=== PATIENT | female | born 1940 | race Caucasian/White ===

== ENCOUNTER → 2018-02-19 | Outpatient (CLI) | payer MEDICARE ==
--- NOTE | 2018-02-20 14:59 | ECHOF ---
Referral Reason:AVNORMAL EKG R94.31 MEASUREMENTS -------- HEIGHT: 165.1 cm WEIGHT: 51.3 kg BP: 190/109 RVIDd: 2.4 cm (< 3.3) IVSd: 1.2 cm (0.6 - 1.1) LVIDd: 3.6 cm (3.9 - 5.3) LVPWd: 1.0 cm (0.6 - 1.1) IVSs: 1.4 cm LVIDs: 2.4 cm LVPWs: 1.4 cm LAESV Index (A-L): 20.20 ml/m Ao Diam: 3.1 cm (2.0 - 3.7) AV Cusp: 1.9 cm (1.5 - 2.6) LA Diam: 2.7 cm (2.7 - 3.8) MV E Wei: 0.46 m/s MV DecT: 114 ms MV A Wei: 0.97 m/s MV E/A Ratio: 0.47 AR PHT: 332 ms RAP: 5.00 mmHg RVSP: 25.35 mmHg FINDINGS -------- Sinus rhythm. This was a technically adequate study. The left ventricular size is normal. There is mild concentric left ventricular hypertrophy. Overa ll left ventricular systolic function is normal with, an EF between 55 - 60 %. The right ventricle is normal in size and function. Normal LA size by volume 22+/-6 ml/m2. The right atrium is normal in size. Aortic valve is trileaflet and is mildly thickened. There is moderate aortic regurgitation. There is no evidence of aortic stenosis. The mitral valve leaflets are mildly thickened. Mild mitral regurgitation is present. Mild tricuspid regurgitation present. Right ventricular systolic pressure is normal at < 35 mmHg. There is no evidence of pulmonary hypertension. The pulmonic valve was not well visualized. The aortic root is borerline dilated up to 3.6 cm. Normal inferior vena cava with normal inspiratory collapse consistent with estimated right atrial pre ssure of 5 mmHg. There is no pericardial effusion. CONCLUSIONS -------- 1. Sinus rhythm. 2. This was a technically adequate study. 3. The left ventricular size is normal. 4. There is mild concentric left ventricular hypertrophy. 5. Overall left ventricular systolic function is normal with, an EF between 55 - 60 %. 6. Normal LA size by volume 22+/-6 ml/m2. 7. Aortic valve is trileaflet and is mildly thickened. 8. There is moderate aortic regurgitation. 9. The mitral valve leaflets are mildly thickened. 10. Mild mitral regurgitation is present. 11. Mild tricuspid regurgitation present. 12. Right ventricular systolic pressure is normal at < 35 mmHg. 13. There is no evidence of pulmonary hypertension. 14. The pulmonic valve was not well visualized. 15. The aortic root is borerline dilated up to 3.6 cm. 16. There is no pericardial effusion. TELEGRAPH INSPECTOR: Valentin Toure RDCS
== END | disposition home or self-care (01) ==
LOC: RADECHMAIN 16:24
PROVIDERS: ATTEND Family Medicine
DX: I08.3 Combined rheumatic disorders of mitral, aortic and tricuspid valves (principal)
CPT/HCPCS: 93306

== ENCOUNTER 2018-05-15 04:41 | Inpatient (IN) | payer MEDICARE ==
[2018-05-15] MEDS ORDERED: METOCLOPRAMIDE 5 MG/ML 2 ML VIAL IVP STA (05:06)
[2018-05-15] MEDS ORDERED: HYDROmorphone 0.5 MG/0.5 ML SYRINGE IVP STA (05:06)
[2018-05-15] MEDS ORDERED: SODIUM CHLORIDE 0.9% 500 ML IV STA (05:06)
[2018-05-15] MEDS ORDERED: FAMOTIDINE 20 MG/2 ML VIAL IV STA (05:07)
--- NOTE | 2018-05-15 05:09 | ED ---
General Adult HPI - General Chief complaint: Abdominal Pain Stated complaint: abd pain Time Seen by Provider: 05/15/18 05:02 Source: patient, RN notes reviewed Mode of arrival: ambulatory Limitations: no limitations - History of Present Illness Initial comments: Patient is a pleasant 77-year-old female presenting to the emergency Department with complaints of abdominal discomfort. Symptoms started a week or more ago. Symptoms have progressively worsened since that time. Abdomen feels full. Discomfort is mostly the lower abdomen. Patient may have some mild constipation the past few days. Patient has some associated nausea and just vomited. No fevers. No history of chronic similar symptoms. - Related Data Previous Rx's Medication Instructions Recorded Carbamide Peroxide [Debrox Otic 5 drops BOTH EARS ONCE PRN #1 03/02/14 drop] bottle Allergies Allergy/AdvReac Type Severity Reaction Status Date / Time No Known Allergies Allergy Verified 05/15/18 04:52 Review of Systems ROS Statement: Those systems with pertinent positive or pertinent negative responses have been documented in the HPI. ROS Other: All systems not noted in ROS Statement are negative. Constitutional: Denies: fever Eyes: Denies: eye pain ENT: Denies: ear pain Respiratory: Denies: cough Cardiovascular: Denies: chest pain Endocrine: Denies: fatigue Gastrointestinal: Reports: abdominal pain, nausea, vomiting, constipation Genitourinary: Denies: dysuria Musculoskeletal: Denies: back pain Skin: Denies: rash Neurological: Denies: weakness Past Medical History Past Medical History: Cancer, Hypertension History of Any Multi-Drug Resistant Organisms: None Reported Past Surgical History: Joint Replacement, Orthopedic Surgery Past Psychological History: No Psychological Hx Reported Smoking Status: Never smoker Past Alcohol Use History: Daily Past Drug Use History: None Reported General Exam Limitations: no limitations General appearance: alert, in no apparent distress Head exam: Present: atraumatic Eye exam: Present: normal appearance, PERRL ENT exam: Present: normal oropharynx Neck exam: Present: normal inspection Respiratory exam: Present: normal lung sounds bilaterally Cardiovascular Exam: Present: regular rate, normal rhythm Expanded Peripheral pulses: 2+: Dorsalis Pedis (R), Dorsalis Pedis (L) GI/Abdominal exam: Present: soft, tenderness (Mild diffuse tenderness. Lower abdomen with mild to moderate tenderness.), normal bowel sounds. Absent: distended, guarding, rebound, rigid, pulsatile mass Extremities exam: Present: normal inspection. Absent: pedal edema, calf tenderness Neurological exam: Present: alert Psychiatric exam: Present: normal affect, normal mood Skin exam: Present: normal color Course Vital Signs 05/15/18 05/15/18 04:48 06:04 Temperature 97.4 F L 98.3 F Pulse Rate 138 H 90 Respiratory 18 18 Rate Blood Pressure 145/95 187/97 O2 Sat by Pulse 97 98 Oximetry Medical Decision Making - Medical Decision Making Patient reevaluated and resting comfortably in bed. Patient and family updated on results and plan. Case was discussed in detail with Dr. Greer, who will admit his patient. Consult with Dr. Hood. - Lab Data Result diagrams: 05/15/18 05:15 05/15/18 05:15 Lab Results 05/15/18 05/15/18 05/15/18 Range/Units 05:15 05:15 05:15 WBC 6.2 (3.8-10.6) k/uL RBC 5.54 H (3.80-5.40) m/uL Hgb 15.4 (11.4-16.0) gm/dL Hct 48.3 H (34.0-46.0) % MCV 87.1 (80.0-100.0) fL MCH 27.8 (25.0-35.0) pg MCHC 31.9 (31.0-37.0) g/dL RDW 12.7 (11.5-15.5) % Plt Count 305 (150-450) k/uL Neutrophils % 78 % Lymphocytes % 16 % Monocytes % 4 % Eosinophils % 1 % Basophils % 1 % Neutrophils # 4.8 (1.3-7.7) k/uL Lymphocytes # 1.0 (1.0-4.8) k/uL Monocytes # 0.2 (0-1.0) k/uL Eosinophils # 0.0 (0-0.7) k/uL Basophils # 0.0 (0-0.2) k/uL PT 10.1 (9.0-12.0) sec INR 1.0 (<1.2) APTT 21.9 L (22.0-30.0) sec Sodium 140 (137-145) mmol/L Potassium 4.1 (3.5-5.1) mmol/L Chloride 109 H (98-107) mmol/L Carbon Dioxide 22 (22-30) mmol/L Anion Gap 9 mmol/L BUN 23 H (7-17) mg/dL Creatinine 0.69 (0.52-1.04) mg/dL Est GFR (CKD-EPI)AfAm >90 (>60 ml/min/1.73 sqM) Est GFR (CKD-EPI)NonAf 84 (>60 ml/min/1.73 sqM) Glucose 170 H (74-99) mg/dL Calcium 9.8 (8.4-10.2) mg/dL Total Bilirubin 0.6 (0.2-1.3) mg/dL AST 20 (14-36) U/L ALT 29 (9-52) U/L Alkaline Phosphatase 111 (38-126) U/L Total Protein 6.4 (6.3-8.2) g/dL Albumin 3.8 (3.5-5.0) g/dL Amylase 53 (30-110) U/L Lipase 62 (23-300) U/L - Radiology Data Radiology results: report reviewed (Computed tomography scan abdomen and pelvis shows apple core type lesion of the sigmoid colon. Concerning for neoplasm, up to 5.8 cm. This does appear to be causing obstruction.) Disposition Clinical Impression: Bowel obstruction Disposition: ADMITTED IP TO THIS [facility] Condition: Serious Is patient prescribed a controlled substance at d/c from ED?: No Referrals: Joao Greer MD [Primary Care Provider] - 1-2 days Decision Time: 06:50
[2018-05-15 05:28] LABS: Basophils % (A) 1 %; Eosinophils % (A) 1 %; HCT 48.3 % (34.0-46.0); HGB 15.4 gm/dL (11.4-16.0); Lymphocytes % (A) 16 %; MCH 27.8 pg (25.0-35.0); MCHC 31.9 g/dL (31.0-37.0); MCV 87.1 fL (80.0-100.0); Mean Platelet Volume 6.6; Monocytes # (A) 0.2 k/uL (0-1.0); Monocytes % (A) 4 %; Neutrophils # (A) 4.8 k/uL (1.3-7.7); Neutrophils % (A) 78 %; Platelet Count 305 k/uL (150-450); RBC 5.54 m/uL (3.80-5.40); RDW 12.7 % (11.5-15.5); WBC 6.2 k/uL (3.8-10.6)
[2018-05-15 05:35] LABS: ALT 29 U/L (9-52); AST 20 U/L (14-36); Albumin 3.8 g/dL (3.5-5.0); Alkaline Phosphatase 111 U/L (38-126); Amylase 53 U/L (30-110); Anion Gap 9 mmol/L; Blood Urea Nitrogen 23 mg/dL (7-17); Calcium 9.8 mg/dL (8.4-10.2); Carbon Dioxide 22 mmol/L (22-30); Chloride 109 mmol/L (98-107); Glucose 170 mg/dL (74-99); Lipase 62 U/L (23-300); Potassium 4.1 mmol/L (3.5-5.1); Sodium 140 mmol/L (137-145); Total Bilirubin 0.6 mg/dL (0.2-1.3); Total Protein 6.4 g/dL (6.3-8.2)
[2018-05-15 05:40] LABS: Prothrombin Time 10.1 sec (9.0-12.0)
[2018-05-15 05:52] LABS: Partial Thromboplastin Time 21.9 sec (22.0-30.0)
--- NOTE | 2018-05-15 06:35 | CT ---
EXAM: CT Abdomen and Pelvis With Intravenous Contrast CLINICAL HISTORY: ITS.REASON CT Reason: abdominal pain TECHNIQUE: Axial computed tomography images of the abdomen and pelvis with intravenous contrast. CTDI is 11.20 mGy and DLP is 428.40 mGy-cm. This CT exam was performed using one or more of the following dose reduction techniques: automated exposure control, adjustment of the mA and/or kV according to patient size, and/or use of iterative reconstruction technique. COMPARISON: No relevant prior studies available. FINDINGS: Lung bases: Unremarkable. No mass. No consolidation. ABDOMEN: Liver: Unremarkable. No mass. Gallbladder and bile ducts: Unremarkable. No calcified stones. No ductal dilation. Pancreas: Unremarkable. No mass. No ductal dilation. Spleen: Unremarkable. No splenomegaly. Adrenals: Unremarkable. No mass. Kidneys and ureters: Left kidney is small with multiple areas of scarring and a small exophytic cyst at the lower pole. Right kidney shows areas of scarring but no hydronephrosis. Small right renal calyceal calculus is seen at approximately the interpolar to lower pole level. Chronic compression fractures involving the T12, L2, and L5 vertebral bodies. No retropulsion or underlying pathology. Stomach and bowel: Apple core type of lesion at the sigmoid colon on image 67 series 3 with a length of 5.8 cm. This concerning for neoplasm. This appears to be causing obstruction to the passage of stool contents with prominent dilatation of the upstream colon which is most dilated level the cecum. No small bowel obstruction. No mucosal thickening. Moderate size hiatal hernia. PELVIS: Appendix: No findings to suggest acute appendicitis. Bladder: Unremarkable. No mass. Reproductive: Unremarkable as visualized. ABDOMEN and PELVIS: Intraperitoneal space: Small amount of free fluid in the pelvis is nonspecific. No adnexal masses. No free air. Bones/joints: Diffuse osteopenia. Soft tissues: Unremarkable. Vasculature: Unremarkable. No abdominal aortic aneurysm. Lymph nodes: Unremarkable. No enlarged lymph nodes. IMPRESSION: Apple core type of lesion at the sigmoid colon on image 67 series 3 with a length of 5.8 cm. This concerning for neoplasm. This appears to be causing obstruction to the passage of stool contents with prominent dilatation of the upstream colon which is most dilated level the cecum. [employer] 05/15/18 06:44 Verify Receipt Verified receipt with Dr. Berger on 05/15 06:44 (-04:00)
[2018-05-15] MEDS ORDERED: ONDANSETRON 4 MG/2 ML VIAL IVP PRN (06:50)
[2018-05-15] MEDS ORDERED: NALOXONE 0.4 MG/ML 1 ML VIAL IV PRN ×2 (06:50→17:51)
[2018-05-15] MEDS ORDERED: MORPHINE SULFATE 4 MG/ML SYRINGE IV PRN (06:50)
[2018-05-15] MEDS ORDERED: ENALAPRILAT 1.25 MG/ML 1 ML VIAL IVP STA ×2 (07:14→08:45)
[2018-05-15] MEDS ORDERED: LOSARTAN 50 MG TAB PO STA (08:15)
[2018-05-15] MEDS ORDERED: SODIUM CHLORIDE 0.9% 500 ML IV ONE (08:17)
[2018-05-15] MEDS: SODIUM CHLORIDE 0.9% 1,000 ML IV SCH ×2 (08:20→14:33)
--- NOTE | 2018-05-15 08:24 | P.GSCN ---
History of Present Illness Consult date: 05/15/18 Reason for Consult: Colon obstruction History of present illness: 's is a 77-year-old female who presented to the emergency room with a 7 day history of abdominal pain and bloating. Patient states his he has been obstipated for 4 days. Her CAT scan performed shows a apple core lesion of the sigmoid colon causing a complete colonic obstruction. Past Medical History Past Medical History: Cancer, Hypertension History of Any Multi-Drug Resistant Organisms: None Reported Past Surgical History: Joint Replacement, Orthopedic Surgery Past Psychological History: No Psychological Hx Reported Smoking Status: Never smoker Past Alcohol Use History: Daily Past Drug Use History: None Reported Medications and Allergies Home Medications Medication Instructions Recorded Confirmed Type Losartan Potassium 100 mg PO DAILY 05/15/18 05/15/18 History Multivit-Min/Iron/Folic/Lutein 1 tab PO DAILY 05/15/18 05/15/18 History [Centrum Silver Women Tablet] Allergies Allergy/AdvReac Type Severity Reaction Status Date / Time No Known Allergies Allergy Verified 05/15/18 07:23 Surgical - Exam Vital Signs Temp Pulse Resp BP Pulse Ox 97.4 F L 138 H 18 145/95 97 05/15/18 04:48 05/15/18 04:48 05/15/18 04:48 05/15/18 04:48 05/15/18 04:48 - General well developed, moderate distress - Eyes PERRL - ENT normal pinna - Neck no masses - Respiratory normal expansion - Cardiovascular Rhythm: regular - Abdomen Chepe esophagus. Abdomen is distended. There is mild tenderness throughout. Abdomen: soft Results - Labs 05/15/18 05:15 05/15/18 05:15 Abnormal Lab Results - Last 24 Hours (Table) 05/15/18 05/15/18 05/15/18 Range/Units 05:15 05:15 05:15 RBC 5.54 H (3.80-5.40) m/uL Hct 48.3 H (34.0-46.0) % APTT 21.9 L (22.0-30.0) sec Chloride 109 H (98-107) mmol/L BUN 23 H (7-17) mg/dL Glucose 170 H (74-99) mg/dL Diabetes panel 05/15/18 Range/Units 05:15 Sodium 140 (137-145) mmol/L Potassium 4.1 (3.5-5.1) mmol/L Chloride 109 H (98-107) mmol/L Carbon Dioxide 22 (22-30) mmol/L BUN 23 H (7-17) mg/dL Creatinine 0.69 (0.52-1.04) mg/dL Glucose 170 H (74-99) mg/dL Calcium 9.8 (8.4-10.2) mg/dL AST 20 (14-36) U/L ALT 29 (9-52) U/L Alkaline Phosphatase 111 (38-126) U/L Total Protein 6.4 (6.3-8.2) g/dL Albumin 3.8 (3.5-5.0) g/dL Calcium panel 05/15/18 Range/Units 05:15 Calcium 9.8 (8.4-10.2) mg/dL Albumin 3.8 (3.5-5.0) g/dL Pituitary panel 05/15/18 Range/Units 05:15 Sodium 140 (137-145) mmol/L Potassium 4.1 (3.5-5.1) mmol/L Chloride 109 H (98-107) mmol/L Carbon Dioxide 22 (22-30) mmol/L BUN 23 H (7-17) mg/dL Creatinine 0.69 (0.52-1.04) mg/dL Glucose 170 H (74-99) mg/dL Calcium 9.8 (8.4-10.2) mg/dL Adrenal panel 05/15/18 Range/Units 05:15 Sodium 140 (137-145) mmol/L Potassium 4.1 (3.5-5.1) mmol/L Chloride 109 H (98-107) mmol/L Carbon Dioxide 22 (22-30) mmol/L BUN 23 H (7-17) mg/dL Creatinine 0.69 (0.52-1.04) mg/dL Glucose 170 H (74-99) mg/dL Calcium 9.8 (8.4-10.2) mg/dL Total Bilirubin 0.6 (0.2-1.3) mg/dL AST 20 (14-36) U/L ALT 29 (9-52) U/L Alkaline Phosphatase 111 (38-126) U/L Total Protein 6.4 (6.3-8.2) g/dL Albumin 3.8 (3.5-5.0) g/dL - Imaging CT scan - abdomen: report reviewed (Apple core lesion sigmoid colon causing complete) Assessment and Plan Assessment: Colonic obstruction secondary to sigmoid colon apple core lesion. Patient will be taken today for exploratory laparotomy sigmoid colectomy and end colostomy. Patient is aware the risks of surgery including wound infection and bleeding.
[2018-05-15 09:14] LABS: Appearance,Urine Clear (Clear); Bilirubin,Urine Negative (Negative); Blood,Urine Trace (Negative); Color,Urine Yellow; Glucose,Urine (UA) Negative (Negative); Ketones,Urine 1+ (Negative); Leukocyte Esterase,Urine Negative (Negative); Mucus,Urine Occasional /hpf; Nitrite,Urine Negative (Negative); PH, Urine 5.5 (5.0-8.0); Protein,Urine Trace (Negative); RBC,Urine 2 /hpf (0-5); Urobilinogen,Urine <2.0 mg/dL (<2.0); WBC,Urine <1 /hpf (0-5)
[2018-05-15 09:23] LABS: Specific Gravity,Urine >1.050 (1.001-1.035)
[2018-05-15] MEDS ORDERED: HYDROmorphone 1 MG/ML 1 ML SYRINGE IVP PRN (10:26)
[2018-05-15] MEDS ORDERED: hydrALAZINE HCL 20 MG/ML 1 ML VIAL IVP PRN (12:39)
--- NOTE | 2018-05-15 12:41 | P.HPIM ---
History of Present Illness H&P Date: 05/15/18 Chief Complaint: Abdominal pain 77-year-old female who presented to the emergency room with a chief complaint of generalized abdominal pain. Patient states her pain has been present for approximately one week. She states she had a bowel movement 4 days ago and it was very hard. Patient denies any bowel movement since that time. The patient denied any nausea or vomiting at home. However she states she had an episode of emesis in the emergency room. Patient denied any fever or chills at home. Denies chest pain or shortness of breath. The patient has a history of hypertension. She is treated outpatient with Cozaar 100 mg daily. She also reports a history of cancer to her right neck region. Patient is unable to specify what kind of cancer she had but states it was surgically resected and that was all the treatment required. CT of abdomen and pelvis completed the emergency room revealed an apple core type of lesion at the sigmoid colon with a length of 45.8 cm. Concerning for neoplasm. This appears to be causing obstruction to the passage of stool contents with prominent dilation of upstream colon which is most dilated at the level of the cecum. Laboratory data: White count of 6.2. Hemoglobin 15.4. Platelet count 308. INR 1.0. Sodium 140. Potassium 4.1. BUN 23. Creatinine 0.69. Glucose 170. The patient's blood pressure was significantly elevated in the emergency room with systolics near 200 and diastolics over 100. She received 2 doses of Vasotec IV along with her home dose of Cozaar. Her blood pressure has improved with a most recent reading of 157/97. She was started on IV fluids at 90 mL an hour and received 2 L of fluid boluses in the emergency room. The patient was admitted to the hospital under the care of Dr. Greer. Consultations were placed to general surgery, Dr. Hood. Review of Systems Those systems with pertinent positive or pertinent negative responses have been documented in the HPI Past Medical History Past Medical History: Cancer, Hypertension History of Any Multi-Drug Resistant Organisms: None Reported Past Surgical History: Joint Replacement, Orthopedic Surgery Past Psychological History: No Psychological Hx Reported Smoking Status: Never smoker Past Alcohol Use History: Daily Past Drug Use History: None Reported Medications and Allergies Home Medications Medication Instructions Recorded Confirmed Type Losartan Potassium 100 mg PO DAILY 05/15/18 05/15/18 History Multivit-Min/Iron/Folic/Lutein 1 tab PO DAILY 05/15/18 05/15/18 History [Centrum Silver Women Tablet] Allergies Allergy/AdvReac Type Severity Reaction Status Date / Time No Known Allergies Allergy Verified 05/15/18 07:23 Physical Exam Vitals: Vital Signs Temp Pulse Pulse Pulse Resp BP BP 05/15/18 12:19 98.2 F 88 16 158/92 05/15/18 10:46 98 F 94 14 157/97 05/15/18 10:15 97.8 F 100 16 162/102 05/15/18 09:36 100 18 173/103 05/15/18 09:03 100 16 189/100 05/15/18 07:31 97.8 F 97 15 165/107 05/15/18 07:13 164/101 05/15/18 06:55 98.2 F 100 16 159/106 05/15/18 06:04 98.3 F 90 18 187/97 05/15/18 04:48 97.4 F L 138 H 18 145/95 Pulse Ox 05/15/18 12:19 97 05/15/18 10:46 97 05/15/18 10:15 95 05/15/18 09:36 05/15/18 09:03 97 05/15/18 07:31 95 05/15/18 07:13 05/15/18 06:55 95 05/15/18 06:04 98 05/15/18 04:48 97 Intake and Output 05/14/18 05/15/18 05/15/18 22:59 06:59 14:59 Output Total 200 Balance -200 Output: Urine 200 Uretheral (Ahn) 200 Other: Weight 52.163 kg GENERAL: This is a 77-year-old female in no apparent distress at the time of examination. Pleasant and cooperative. HEENT: NG tube noted with bilious drainage. Head is atraumatic, normocephalic. Pupils are equal, round, and reactive to light. Sclerae anicteric. Conjunctivae are clear. Mucus membranes of the mouth are moist. Neck is supple. RESPIRATORY: Clear to ausculation. No wheezes, rales, or rhonchi. No use of accessory muscles. Patient maintaining oxygen saturation greater than 92%. No chest wall tenderness is noted on palpation or with deep breathing. CARDIOVASCULAR: Regular rate and rhythm. S1 and S2 noted. No systolic or diastolic murmur auscultated. No JVD noted. No S3 or S4 noted. GASTROINTESTINAL: Abdominal distention noted. Hyperactive bowel sounds auscultated x 4 quadrants. Pain and tenderness noted upon palpation. INTEGUMENTARY: No cyanosis. No jaundice. No rashes noted. No cellulitis noted. EXTREMITIES: 2+ peripheral pulses. No evidence of peripheral edema. No calf tenderness noted. NEUROLOGIC: Cranial nerves II-XII intact. PSYCHIATRIC: Awake, alert, and oriented X 3. Appropriate affect. Intact judgement and insight. Results CBC & Chem 7: 05/15/18 05:15 05/15/18 05:15 Labs: Abnormal Lab Results - Last 24 Hours (Table) 05/15/18 05/15/18 05/15/18 Range/Units 05:15 05:15 05:15 RBC 5.54 H (3.80-5.40) m/uL Hct 48.3 H (34.0-46.0) % APTT 21.9 L (22.0-30.0) sec Chloride 109 H (98-107) mmol/L BUN 23 H (7-17) mg/dL Glucose 170 H (74-99) mg/dL Ur Specific [place] (1.001-1.035) Urine Protein (Negative) Urine Ketones (Negative) Urine Blood (Negative) Urine Mucus (None) /hpf 05/15/18 Range/Units 08:54 RBC (3.80-5.40) m/uL Hct (34.0-46.0) % APTT (22.0-30.0) sec Chloride (98-107) mmol/L BUN (7-17) mg/dL Glucose (74-99) mg/dL Ur Specific [place] >1.050 H (1.001-1.035) Urine Protein Trace H (Negative) Urine Ketones 1+ H (Negative) Urine Blood Trace H (Negative) Urine Mucus Occasional H (None) /hpf Assessment and Plan Plan: ASSESSMENT: Colonic obstruction secondary to sigmoid colon apple core lesion, suspicious for neoplasm Abdominal pain, nausea, and vomiting, present on admission, secondary to above Hypertension, uncontrolled on admission, improving PLAN: Dr. Hood on consult. Patient to undergo exploratory laparotomy, sigmoid colectomy, and end colostomy today Continue NG tube to LIS Continue IV fluids Monitor blood pressure Obtain 12 lead EKG Hydralazine 10 mg IV push every 4 hours when necessary for systolic blood pressure greater than 180 or diastolic blood pressure greater than 110 Home meds as appropriate Monitor labs GI prophylaxis: Protonix 40 mg IV Daily DVT prophylaxis: SCDs to bilateral lower extremities Monitor vital signs and address as appropriate Further recommendations pending patient's course Nurse practitioner note has been reviewed by physician. Signing provider agrees with the documented findings, assessment, and plan of care.
[2018-05-15 13:00] VITALS: BMI 19.1
[2018-05-15] MEDS: PANTOPRAZOLE 40 MG/10 ML VIAL IV SCH (14:37)
[2018-05-15] MEDS ORDERED: IV FLUID CONTINUATION 1,000 ML IV ONE (15:16)
[2018-05-15] MEDS ORDERED: MIDAZOLAM 2 MG/2 ML VIAL IV ONE (15:40)
[2018-05-15] MEDS ORDERED: HEPARIN SODIUM,PORCINE 5,000 UNIT/ML 1 ML VIAL SQ ONE (16:31)
[2018-05-15] MEDS ORDERED: ceFAZolin IN SWFI 2 GM/20 ML SYRINGE IVP STA (16:46)
[2018-05-15] MEDS ORDERED: GLYCOPYRROLATE 0.2 MG/ML 2 ML VIAL ONE (17:11)
[2018-05-15] MEDS ORDERED: PROPOFOL 10 MG/ML 20 ML VIAL IV ONE (17:11)
[2018-05-15] MEDS ORDERED: PHENYLEPHRINE-0.9% NACL SYG 1 MG/10 ML SYRINGE ONE (17:11)
[2018-05-15] MEDS ORDERED: LIDOCAINE 1% INJ 10MG/ML (20 ML MDV) ONE (17:11)
[2018-05-15] MEDS ORDERED: SUCCINYLCHOLINE CHLORIDE 100 MG/5 ML SYR IV ONE (17:11)
[2018-05-15] MEDS ORDERED: fentaNYL (PF) 50 MCG/ML 2 ML AMP ONE (17:11)
[2018-05-15] MEDS ORDERED: VECURONIUM 10 MG VIAL IV ONE (17:11)
[2018-05-15] MEDS ORDERED: NEOSTIGMINE 1 MG/ML 10 ML VIAL ONE (17:11)
[2018-05-15] MEDS ORDERED: SODIUM CHLORIDE 0.9% 50 ML with ceFAZolin 2,000 MG IV ONE ×2 (17:17)
[2018-05-15] MEDS ORDERED: LACTATED RINGERS 1,000 ML IV ONE (18:25)
[2018-05-15] MEDS ORDERED: BENZOCAINE/MENTHOL LOZENG 1 EACH LOZENGE MUCOUS MEM PRN (18:41)
--- NOTE | 2018-05-15 18:41 | P.OP ---
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 She received general anesthesia. Her abdomen was prepped and draped usual sterile fashion. The abdomen was quite distended. The abdomen was entered through midline incision. There was a small ventral hernia which had some incarcerated fat within it. The incarcerated fat was dissected with electrocautery and sent to pathology. The small bowel was allowed. The colon was dilated. The liver appeared normal. The colon was examined to the level sigmoid colon and there was obstructing tumor visualized. The distal sigmoid colon was transected and then the proximal sigmoid colon was transected with a GI stapler. Using the Enseal device the mesentery the bowel was divided. Specimen sent to pathology. The colon was quite dilated. A decompressive enterotomy was made in the transverse colon the colon was aspirated and then the colon enterotomy was repaired using the TX 60 stapler. The abdomen was irrigated there is no bleeding seen the liver is visualized there is no evidence of any metastatic disease. At this point a suitable spot for the colostomy was chosen on the anterior abdominal wall and then using a 15 blade skin was incised and then using cautery the fascia was divided and then the rectus muscles were divided. The colostomy was then brought out through the skin level. The fascia was then closed with looped #1 PDS suture. And closing the fascia there was a small hernias repaired. The fascia is closed with 0 PDS suture. Skin was closed ricco. The colostomy was matured with 3-0 Vicryl suture.
[2018-05-15] MEDS: ROPIVACAINE 250 MG, fentaNYL (PF) 625 MCG in SODIUM CHLORIDE 0.9% 188 ML EPIDURAL PRN (19:01)
[2018-05-15] MEDS: METOCLOPRAMIDE 5 MG/ML 2 ML VIAL IVP SCH ×2 (19:57→23:12)
[2018-05-15] MEDS: D5-0.45% NACL WITH KCL 20MEQ/L 1,000 ML IV SCH (20:00)
[2018-05-15] MEDS: FAMOTIDINE 20 MG/2 ML VIAL IV SCH (20:00)
[2018-05-15] MEDS: HEPARIN SODIUM,PORCINE 5,000 UNIT/ML 1 ML VIAL SQ SCH (23:12)
[2018-05-16] MEDS: SODIUM CHLORIDE 0.9% 1,000 ML IV SCH ×2 (05:02→16:20)
[2018-05-16] MEDS: D5-0.45% NACL WITH KCL 20MEQ/L 1,000 ML IV SCH ×4 (05:05→23:28)
[2018-05-16] MEDS: METOCLOPRAMIDE 5 MG/ML 2 ML VIAL IVP SCH ×4 (05:05→23:28)
[2018-05-16 06:59] LABS: Basophils % (A) 0 %; Eosinophils % (A) 0 %; HCT 39.7 % (34.0-46.0); HGB 12.5 gm/dL (11.4-16.0); Lymphocytes # (A) 0.8 k/uL (1.0-4.8); Lymphocytes % (A) 10 %; MCH 27.9 pg (25.0-35.0); MCHC 31.4 g/dL (31.0-37.0); MCV 88.8 fL (80.0-100.0); Mean Platelet Volume 6.5; Monocytes # (A) 0.6 k/uL (0-1.0); Monocytes % (A) 7 %; Neutrophils # (A) 6.6 k/uL (1.3-7.7); Neutrophils % (A) 82 %; Platelet Count 252 k/uL (150-450); RBC 4.47 m/uL (3.80-5.40); RDW 12.9 % (11.5-15.5); WBC 8.1 k/uL (3.8-10.6)
[2018-05-16 07:11] LABS: Anion Gap 3 mmol/L; Blood Urea Nitrogen 21 mg/dL (7-17); Calcium 8.2 mg/dL (8.4-10.2); Carbon Dioxide 23 mmol/L (22-30); Chloride 113 mmol/L (98-107); Glucose 178 mg/dL (74-99); Potassium 3.9 mmol/L (3.5-5.1); Sodium 139 mmol/L (137-145)
--- NOTE | 2018-05-16 07:18 | P.PN ---
Progress Note - Text Date: 05-16-18Time: 703 The patient is status post, left colectomy, postoperative day number 1 The patient has no complaints of nausea vomiting or headache. The patient does not complain of any lower extremity numbness or weakness. The epidural is running at[ 5] mL per hour. VAS 0-10. The epidural will be maintained and adjusted as needed.
[2018-05-16] MEDS: FAMOTIDINE 20 MG/2 ML VIAL IV SCH ×2 (08:27→20:35)
[2018-05-16] MEDS: HEPARIN SODIUM,PORCINE 5,000 UNIT/ML 1 ML VIAL SQ SCH ×3 (08:27→23:28)
[2018-05-16] MEDS: PANTOPRAZOLE 40 MG/10 ML VIAL IV SCH (08:28)
--- NOTE | 2018-05-16 11:21 | P.PN ---
Subjective Progress Note Date: 05/16/18 77-year-old female seen at bedside Patient's ostomy appliance seal broke stool leaked onto surgical incision ricco in place upper surgical site dressing dry ostomy moderate amount of stool liquid brown in ostomy bag nasal gastric tube to suction low output less than 50 for the last 8 hours. 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 Q11H7M [facility] Rx#:[id number] Output: Gastric Drainage 0 Urine 600 75 Uretheral (Ahn) 450 Estimated Blood Loss 125 Other: Voiding Method Indwelling Catheter Indwelling Catheter Indwelling Catheter - Exam Physical exam Thin 77-year-old female resting in bed appears no acute distress Lungs adequate air movement bilaterally Heart S1-S2 audible regular Abdomen ostomy left lower quadrant a moderate amount of liquid stool in ostomy bag ostomy appliance seal leaked onto surgical site ricco in place. Indwelling Ahn catheter in place. Nasogastric tube clamped low output nondistended nontender bowel tones present Extremities no edema noted - Labs CBC & Chem 7: 05/16/18 06:30 05/16/18 06:30 Labs: Abnormal Lab Results - Last 24 Hours (Table) 05/16/18 05/16/18 Range/Units 06:30 06:30 Lymphocytes # 0.8 L (1.0-4.8) k/uL Chloride 113 H (98-107) mmol/L BUN 21 H (7-17) mg/dL Glucose 178 H (74-99) mg/dL Calcium 8.2 L (8.4-10.2) mg/dL Assessment and Plan Assessment: Impression colon Obstruction secondary to tumor of proximal sigmoid colon Postop May 15 repair of ventral hernia, sigmoid colectomy with end colostomy Present on admission generalized abdominal pain with constipation Present on admission CAT scan of the abdomen pelvis showed apple core type lesion at the sigmoid colon Present on admission hypertension urgency improved Plan Repeat labs follow up on results Continue postop surgical care Clamped nasal gastric tube for 4 hours reconnect lower output remove start on popsicles ice chips only Pain control Increase activity Initiated ostomy teaching DVT and GI prophylaxis Further surgical recommendations pending The above impression and plan of care have been discussed and directed by signing physician. Trinity Hitchcock nurse practitioner acting as scribe for signing physician.
--- NOTE | 2018-05-16 14:04 | P.PN ---
Subjective Progress Note Date: 05/16/18 Principal diagnosis: Bowel obstruction. The patient is postop day #1 for bowel obstruction. Patient is found to have tumor, colleges now pending. She seems comfortable today no flatus passed. No significant nausea or vomiting is noted. Objective - Vital Signs Vital signs: Vital Signs Temp 98.5 F 05/16/18 07:14 Pulse 104 H 05/16/18 07:14 Resp 14 05/16/18 07:14 BP 97/58 05/16/18 07:14 Pulse Ox 97 05/16/18 07:14 Intake & Output 05/15/18 05/16/18 05/16/18 18:59 06:59 18:59 Intake Total 1530 28 Output Total 725 75 Balance 805 -47 Weight 52.163 kg 52.163 kg Intake: IV 1350 28 Intake, IV Titration 180 Amount Sodium Chloride 0.9% 1, 180 000 ml @ 90 mls/hr IV . Q11H7M [facility] Rx#:[id number] Output: Gastric Drainage 0 Urine 600 75 Uretheral (Ahn) 450 Estimated Blood Loss 125 Other: Voiding Method Indwelling Catheter Indwelling Catheter Indwelling Catheter - Constitutional General appearance: Present: average body habitus - EENT Eyes: Absent: abnormal pupil - Neck Neck: Absent: lymphadenopathy - Respiratory Respiratory: bilateral: CTA - Cardiovascular Rhythm: regular Heart sounds: normal: S1, S2 - Gastrointestinal General gastrointestinal: Present: tenderness - Neurologic Neurologic: Absent: focal deficits - Labs CBC & Chem 7: 05/16/18 06:30 05/16/18 06:30 Labs: Abnormal Lab Results - Last 24 Hours (Table) 05/16/18 05/16/18 Range/Units 06:30 06:30 Lymphocytes # 0.8 L (1.0-4.8) k/uL Chloride 113 H (98-107) mmol/L BUN 21 H (7-17) mg/dL Glucose 178 H (74-99) mg/dL Calcium 8.2 L (8.4-10.2) mg/dL Assessment and Plan (1) Hypertension Current Visit: Yes Status: Acute Code(s): I10 - ESSENTIAL (PRIMARY) HYPERTENSION SNOMED Code(s): 30831274 (2) Bowel obstruction Current Visit: Yes Status: Acute Code(s): K56.609 - UNSP INTESTNL OBST, UNSP TO PARTIAL VERSUS COMPLETE OBST SNOMED Code(s): 23594026 Plan: Continue standard postoperative care. Pulmonary toilet with DVT prophylaxis as necessary. New. We will continue follow with general surgery. Watch blood pressure closely otherwise. Check CMP in a.m. Time with Patient: Less than 30
[2018-05-16] MEDS: ROPIVACAINE 250 MG, fentaNYL (PF) 625 MCG in SODIUM CHLORIDE 0.9% 188 ML EPIDURAL PRN (20:35)
[2018-05-17] MEDS: SODIUM CHLORIDE 0.9% 1,000 ML IV SCH ×2 (04:51→14:35)
[2018-05-17] MEDS: METOCLOPRAMIDE 5 MG/ML 2 ML VIAL IVP SCH ×4 (04:51→23:45)
[2018-05-17 07:04] LABS: HGB 12.2 gm/dL (11.4-16.0); MCH 27.7 pg (25.0-35.0); MCHC 31.3 g/dL (31.0-37.0); MCV 88.6 fL (80.0-100.0); Mean Platelet Volume 6.5; Platelet Count 205 k/uL (150-450); RDW 12.8 % (11.5-15.5); WBC 9.1 k/uL (3.8-10.6)
[2018-05-17 07:17] LABS: ALT 25 U/L (9-52); AST 26 U/L (14-36); Albumin 2.5 g/dL (3.5-5.0); Alkaline Phosphatase 73 U/L (38-126); Anion Gap 4 mmol/L; Blood Urea Nitrogen 15 mg/dL (7-17); Calcium 8.4 mg/dL (8.4-10.2); Carbon Dioxide 23 mmol/L (22-30); Chloride 110 mmol/L (98-107); Glucose 129 mg/dL (74-99); Potassium 4.5 mmol/L (3.5-5.1); Sodium 137 mmol/L (137-145); Total Bilirubin 0.5 mg/dL (0.2-1.3); Total Protein 4.7 g/dL (6.3-8.2)
[2018-05-17] MEDS: D5-0.45% NACL WITH KCL 20MEQ/L 1,000 ML IV SCH ×2 (07:20→15:06)
--- NOTE | 2018-05-17 07:41 | P.PN ---
Progress Note - Text 05/17 723am 77-year-old female status post left colectomy by Dr. horton. Patient has an epidural catheter for postop pain control with the solution running at 5 mL an hour with a VAS of 0. No motor or sensory deficits, has been ambulating. Plan to continue epidural infusion
--- NOTE | 2018-05-17 08:10 | P.PN ---
Subjective Principal diagnosis: Bowel obstruction. The patient is a 77-year-old white female who is postop day #2 colectomy related to bowel obstruction. Apical lesion was noted and pathology is still pending. No flatus as stated. Pain is fairly well controlled. Objective - Vital Signs Vital signs: Vital Signs Temp 99.5 F 05/17/18 07:25 Pulse 118 H 05/17/18 07:25 Resp 16 05/17/18 07:25 BP 148/97 05/17/18 07:25 Pulse Ox 94 L 05/17/18 07:25 Intake & Output 05/16/18 05/17/18 05/17/18 18:59 06:59 18:59 Intake Total 1430 Output Total 350 600 Balance -350 830 Weight 52.163 kg Intake: Intake, IV Titration 1430 Amount D5-0.45% NaCl with KCl 1375 20Meq/l 1,000 ml @ 125 mls/hr IV .Q8H [facility] Rx#: [id number] Ropivacaine 250 mg 55 fentaNYL (PF) 625 mcg In Sodium Chloride 0.9% 188 ml @ Per Protocol EPIDURAL .Q0M PR[facility] Rx#: [id number] Output: Urine 350 600 Uretheral (Ahn) 350 Other: Voiding Method Indwelling Catheter Indwelling Catheter - Constitutional General appearance: Present: average body habitus - EENT Eyes: Absent: abnormal pupil - Respiratory Respiratory: bilateral: CTA - Cardiovascular Rhythm: regular Heart sounds: normal: S1, S2 Abnormal Heart Sounds: Absent: S3 Gallop - Gastrointestinal General gastrointestinal: Present: soft. Absent: tenderness - Psychiatric Psychiatric: Present: A&O x's 3. Absent: appropriate affect - Labs CBC & Chem 7: 05/17/18 06:33 05/17/18 06:33 Labs: Abnormal Lab Results - Last 24 Hours (Table) 05/17/18 Range/Units 06:33 Chloride 110 H (98-107) mmol/L Glucose 129 H (74-99) mg/dL Total Protein 4.7 L (6.3-8.2) g/dL Albumin 2.5 L (3.5-5.0) g/dL Assessment and Plan (1) Hypertension Current Visit: Yes Status: Acute Code(s): I10 - ESSENTIAL (PRIMARY) HYPERTENSION SNOMED Code(s): 92152854 (2) Bowel obstruction Current Visit: Yes Status: Acute Code(s): K56.609 - UNSP INTESTNL OBST, UNSP TO PARTIAL VERSUS COMPLETE OBST SNOMED Code(s): 42107083 Plan: Continue current regimen of treatment. Check CBC in a.m. Dr. Perry's group will covering for the weekend. The patient seems to be doing well postoperatively.
[2018-05-17] MEDS: PANTOPRAZOLE 40 MG/10 ML VIAL IV SCH (08:19)
[2018-05-17] MEDS: HEPARIN SODIUM,PORCINE 5,000 UNIT/ML 1 ML VIAL SQ SCH ×3 (08:19→23:43)
[2018-05-17] MEDS: FAMOTIDINE 20 MG/2 ML VIAL IV SCH (08:20)
--- NOTE | 2018-05-17 14:35 | P.PN ---
Subjective Progress Note Date: 05/17/18 Principal diagnosis: Calderon's procedure Patient doing well today. Nasogastric tube is now out. Positive stool from ostomy. T-max 99.5. White blood cell count 9.1. Objective - Vital Signs Vital signs: Vital Signs Temp 99.5 F 05/17/18 07:25 Pulse 118 H 05/17/18 07:25 Resp 16 05/17/18 07:25 BP 148/97 05/17/18 07:25 Pulse Ox 94 L 05/17/18 07:25 Intake & Output 05/16/18 05/17/18 05/17/18 18:59 06:59 18:59 Intake Total 1430 Output Total 350 600 Balance -350 830 Weight 52.163 kg Intake: Intake, IV Titration 1430 Amount D5-0.45% NaCl with KCl 1375 20Meq/l 1,000 ml @ 125 mls/hr IV .Q8H [facility] Rx#: [id number] Ropivacaine 250 mg 55 fentaNYL (PF) 625 mcg In Sodium Chloride 0.9% 188 ml @ Per Protocol EPIDURAL .Q0M [facility] Rx#: [id number] Output: Urine 350 600 Uretheral (Ahn) 350 Other: Voiding Method Indwelling Catheter Indwelling Catheter Indwelling Catheter - Exam Abdomen: Soft, nondistended, mild tenderness, ostomy pink - Labs CBC & Chem 7: 05/17/18 06:33 05/17/18 06:33 Labs: Abnormal Lab Results - Last 24 Hours (Table) 05/17/18 Range/Units 06:33 Chloride 110 H (98-107) mmol/L Glucose 129 H (74-99) mg/dL Total Protein 4.7 L (6.3-8.2) g/dL Albumin 2.5 L (3.5-5.0) g/dL Assessment and Plan (1) Bowel obstruction Narrative/Plan: Gradually advance diet. Ambulate. Remove epidural tomorrow. Current Visit: Yes Status: Acute Code(s): K56.609 - UNSP INTESTNL OBST, UNSP TO PARTIAL VERSUS COMPLETE OBST SNOMED Code(s): 79020201
[2018-05-17] MEDS: HYDROcodone/APAP 5-325MG 1 EACH TAB PO PRN (19:34)
[2018-05-17] MEDS: HYDROmorphone 1 MG/ML 1 ML SYRINGE IVP PRN (20:18)
[2018-05-18] MEDS: SODIUM CHLORIDE 0.9% 1,000 ML IV SCH ×3 (02:04→23:09)
[2018-05-18] MEDS: HYDROmorphone 1 MG/ML 1 ML SYRINGE IVP PRN (03:00)
[2018-05-18 03:02] LABS: Glucose,Whole Blood 162 mg/dL (75-99)
[2018-05-18] MEDS: D5-0.45% NACL WITH KCL 20MEQ/L 1,000 ML IV SCH ×3 (05:33→17:39)
[2018-05-18] MEDS: METOCLOPRAMIDE 5 MG/ML 2 ML VIAL IVP SCH ×4 (05:33→23:11)
[2018-05-18] MEDS: HYDROcodone/APAP 5-325MG 1 EACH TAB PO PRN ×3 (05:36→19:23)
[2018-05-18] MEDS: HEPARIN SODIUM,PORCINE 5,000 UNIT/ML 1 ML VIAL SQ SCH ×3 (10:24→23:12)
[2018-05-18] MEDS: PANTOPRAZOLE 40 MG/10 ML VIAL IV SCH (10:24)
--- NOTE | 2018-05-18 10:25 | P.PN ---
Subjective Progress Note Date: 05/18/18 Principal diagnosis: Calderon's procedure Patient doing well today. Tolerating diet. Good bowel function. Epidural came out yesterday. Pain is controlled. Asking for more to eat. Objective - Vital Signs Vital signs: Vital Signs Temp 97.8 F 05/18/18 07:55 Pulse 105 H 05/18/18 07:55 Resp 16 05/18/18 07:55 BP 144/98 05/18/18 07:55 Pulse Ox 94 L 05/18/18 07:55 Intake & Output 05/17/18 05/18/18 05/18/18 18:59 06:59 18:59 Intake Total 0 Output Total 200 525 Balance -200 -525 0 Intake: Oral 0 Output: Urine 200 525 Other: Voiding Method Indwelling Catheter Indwelling Catheter Indwelling Catheter - Exam Abdomen: Soft, nondistended, mild tenderness, incision clean and dry, ostomy function - Labs CBC & Chem 7: 05/17/18 06:33 05/17/18 06:33 Labs: Abnormal Lab Results - Last 24 Hours (Table) 05/18/18 Range/Units 02:59 POC Glucose (mg/dL) 162 H (75-99) mg/dL Assessment and Plan (1) Bowel obstruction Narrative/Plan: Increase activity. Remove Ahn catheter. Increase diet. Current Visit: Yes Status: Acute Code(s): K56.609 - UNSP INTESTNL OBST, UNSP TO PARTIAL VERSUS COMPLETE OBST SNOMED Code(s): 11911494
--- NOTE | 2018-05-18 12:48 | P.PN ---
Subjective 77 years old female with past medical history of hypertension, right salivary gland cancer, joint replacement. Presents with 7 day history of abdominal pain and bloating. Her CAT scan performed shows a apple core lesion of the sigmoid colon causing a complete colonic obstruction. patient is status post left colectomy on 05/15/2018 on admission also she had high blood pressure of 200/100 05/18/2018 patient is doing well today area she is tolerating diet. the colostomy bag has good drainage with no surrounding leakage or cellulitis. Epidural came out yesterday. Minimal pain. Her blood pressure is144/98, restart losartan 100 mg by mouth daily home medication. Pathology report: Pending Objective - Vital Signs Vital signs: Vital Signs Temp 97.8 F 05/18/18 07:55 Pulse 105 H 05/18/18 07:55 Resp 16 05/18/18 07:55 BP 144/98 05/18/18 07:55 Pulse Ox 94 L 05/18/18 07:55 Intake & Output 05/17/18 05/18/18 05/18/18 18:59 06:59 18:59 Intake Total 0 Output Total 200 525 Balance -200 -525 0 Intake: Oral 0 Output: Urine 200 525 Other: Voiding Method Indwelling Catheter Indwelling Catheter Indwelling Catheter - Exam GENERAL: The patient is alert and oriented x3, not in any acute distress. Well developed, well nourished. HEENT: Pupils are round and equally reacting to light. EOMI. No scleral icterus. No conjunctival pallor. Normocephalic, atraumatic. No pharyngeal erythema. No thyromegaly. CARDIOVASCULAR: S1 and S2 present. No murmurs, rubs, or gallops. PULMONARY: Chest is clear to auscultation, no wheezing or crackles. ABDOMEN: Soft, nontender, nondistended, normoactive bowel sounds. No palpable organomegaly. colostomy bag is in place with no surrounding inflammation MUSCULOSKELETAL: No joint swelling or deformity. EXTREMITIES: No cyanosis, clubbing, or pedal edema. NEUROLOGICAL: Gross neurological examination did not reveal any focal deficits. SKIN: No rashes. - Labs CBC & Chem 7: 05/17/18 06:33 05/17/18 06:33 Labs: Abnormal Lab Results - Last 24 Hours (Table) 05/18/18 Range/Units 02:59 POC Glucose (mg/dL) 162 H (75-99) mg/dL Assessment and Plan Assessment: intestinal obstruction, status post colectomy on 06/03/2018 Possible colon Tumor, follow-up pathology report hypertension, not well controlled Plan: this is a pleasant 77 years old female presents with intestinal obstruction, status post colectomy. Continue with same treatment. Continue with symptomatic treatment. Continue with home medication. Resume losartan 100 mg daily for high blood pressure. DVT and GI prophylaxis. Recommend incentive spirometry. Further recommendations based on the clinical course DVT prophylaxis on heparin GI prophylaxis: Not needed Prognosis is guarded
[2018-05-18] MEDS: LOSARTAN 50 MG TAB PO SCH (15:06)
[2018-05-18] MEDS ORDERED: HYDROmorphone 2 MG TAB PO PRN (19:19)
[2018-05-18] MEDS ORDERED: HYDROmorphone 4 MG TABLET PO PRN (19:19)
[2018-05-19] MEDS: HYDROcodone/APAP 5-325MG 1 EACH TAB PO PRN ×3 (01:13→12:02)
[2018-05-19] MEDS: METOCLOPRAMIDE 5 MG/ML 2 ML VIAL IVP SCH ×4 (05:16→23:59)
[2018-05-19] MEDS: D5-0.45% NACL WITH KCL 20MEQ/L 1,000 ML IV SCH ×3 (05:18→17:55)
[2018-05-19] MEDS: LOSARTAN 50 MG TAB PO SCH (08:21)
[2018-05-19] MEDS: PANTOPRAZOLE 40 MG TABLET PO SCH (08:22)
[2018-05-19] MEDS: HEPARIN SODIUM,PORCINE 5,000 UNIT/ML 1 ML VIAL SQ SCH ×3 (08:22→23:59)
[2018-05-19] MEDS: SODIUM CHLORIDE 0.9% 1,000 ML IV SCH ×2 (08:34→20:58)
--- NOTE | 2018-05-19 10:03 | P.PN ---
Subjective Progress Note Date: 05/19/18 Principal diagnosis: Calderon's procedure Patient doing well today. Denies pain. Tolerating diet. Good ostomy function. Mildly tachycardic. Objective - Vital Signs Vital signs: Vital Signs Temp 98.0 F 05/19/18 07:00 Pulse 115 H 05/19/18 07:00 Resp 16 05/19/18 07:00 BP 139/95 05/19/18 07:00 Pulse Ox 94 L 05/19/18 07:00 Intake & Output 05/18/18 05/19/18 05/19/18 18:59 06:59 18:59 Intake Total 477 200 Output Total 1500 Balance 477 -1500 200 Weight 52.163 kg Intake: Oral 477 200 Output: Urine 1500 Uretheral (Ahn) 1500 Other: Voiding Method Indwelling Catheter Indwelling Catheter - Exam Abdomen: Soft, nondistended, mild midline incisional tenderness, incision clean - Labs CBC & Chem 7: 05/17/18 06:33 05/17/18 06:33 Assessment and Plan (1) Bowel obstruction Narrative/Plan: Continue low fiber diet. Ambulate. Possible discharge tomorrow. Current Visit: Yes Status: Acute Code(s): K56.609 - UNSP INTESTNL OBST, UNSP TO PARTIAL VERSUS COMPLETE OBST SNOMED Code(s): 75946623
--- NOTE | 2018-05-19 22:42 | P.PN ---
Subjective 77 years old female with past medical history of hypertension, right salivary gland cancer, joint replacement. Presents with 7 day history of abdominal pain and bloating. Her CAT scan performed shows a apple core lesion of the sigmoid colon causing a complete colonic obstruction. patient is status post left colectomy on 05/15/2018 on admission also she had high blood pressure of 200/100 05/18/2018 patient is doing well today area she is tolerating diet. the colostomy bag has good drainage with no surrounding leakage or cellulitis. Epidural came out yesterday. Minimal pain. Her blood pressure is144/98, restart losartan 100 mg by mouth daily home medication. Pathology report: Pending 05/19/2018 patient is doing well today area she is tolerating diet. the colostomy bag has good drainage with no surrounding leakage or cellulitis. Epidural came out yesterday. Minimal pain. Her blood pressure is144/98, restart losartan 100 mg by mouth daily home medication. Pathology report: Pending. pt is instructed to f/u with pathology report with her surgeon and pcp. risk including but not limited to cancer is explained for the pt Objective - Vital Signs Vital signs: Vital Signs Temp 98.3 F 05/19/18 14:13 Pulse 109 H 05/19/18 14:13 Resp 16 05/19/18 14:13 BP 126/78 05/19/18 14:13 Pulse Ox 94 L 05/19/18 14:13 Intake & Output 05/18/18 05/19/18 05/19/18 18:59 06:59 18:59 Intake Total 477 320 Output Total 1500 Balance 477 -1500 320 Weight 52.163 kg Intake: Oral 477 320 Output: Urine 1500 Uretheral (Ahn) 1500 Other: Voiding Method Indwelling Catheter Indwelling Catheter - Exam GENERAL: The patient is alert and oriented x3, not in any acute distress. Well developed, well nourished. HEENT: Pupils are round and equally reacting to light. EOMI. No scleral icterus. No conjunctival pallor. Normocephalic, atraumatic. No pharyngeal erythema. No thyromegaly. CARDIOVASCULAR: S1 and S2 present. No murmurs, rubs, or gallops. PULMONARY: Chest is clear to auscultation, no wheezing or crackles. ABDOMEN: Soft, nontender, nondistended, normoactive bowel sounds. No palpable organomegaly. colostomy bag is in place with no surrounding inflammation MUSCULOSKELETAL: No joint swelling or deformity. EXTREMITIES: No cyanosis, clubbing, or pedal edema. NEUROLOGICAL: Gross neurological examination did not reveal any focal deficits. SKIN: No rashes. - Labs CBC & Chem 7: 05/17/18 06:33 05/17/18 06:33 Assessment and Plan Assessment: intestinal obstruction, status post colectomy on 06/03/2018 Possible colon Tumor, follow-up pathology report hypertension, not well controlled Plan: this is a pleasant 77 years old female presents with intestinal obstruction, status post colectomy. Continue with same treatment. Continue with symptomatic treatment. please follow up with the pathology report: pending . Continue with home medication. Resume losartan 100 mg daily for high blood pressure. DVT and GI prophylaxis. Recommend incentive spirometry. Further recommendations based on the clinical course DVT prophylaxis on heparin GI prophylaxis: Not needed Prognosis is guarded
[2018-05-20] MEDS: HYDROcodone/APAP 5-325MG 1 EACH TAB PO PRN ×4 (00:07→18:54)
[2018-05-20] MEDS: METOCLOPRAMIDE 5 MG/ML 2 ML VIAL IVP SCH (05:52)
[2018-05-20] MEDS: D5-0.45% NACL WITH KCL 20MEQ/L 1,000 ML IV SCH ×2 (05:56→10:06)
[2018-05-20] MEDS: LOSARTAN 50 MG TAB PO SCH (08:19)
[2018-05-20] MEDS: HEPARIN SODIUM,PORCINE 5,000 UNIT/ML 1 ML VIAL SQ SCH ×3 (08:19→23:13)
[2018-05-20] MEDS: PANTOPRAZOLE 40 MG TABLET PO SCH (08:19)
[2018-05-20] MEDS: SODIUM CHLORIDE 0.9% 1,000 ML IV SCH (10:07)
--- NOTE | 2018-05-20 11:35 | P.PN ---
Subjective Progress Note Date: 05/20/18 77-year-old female seen sitting up in a chair no new events. Heart Rate in the 110s. Temp 98.7. Ostomy functioning moderate amount of stool in the ostomy bag surgical dressing dry Objective - Vital Signs Vital signs: Vital Signs Temp 98.7 F 05/20/18 07:45 Pulse 117 H 05/20/18 07:45 Resp 14 05/20/18 07:45 BP 116/83 05/20/18 07:45 Pulse Ox 93 L 05/20/18 07:45 Intake & Output 05/19/18 05/20/18 05/20/18 18:59 06:59 18:59 Intake Total 320 1100 237 Balance 320 1100 237 Intake: Intake, IV Titration 1000 Amount D5-0.45% NaCl with KCl 1000 20Meq/l 1,000 ml @ 125 mls/hr IV .Q8H [facility] Rx#: [id number] Oral 320 0 237 Other 100 Other: Voiding Method Toilet # Voids 3 1 - Exam Physical exam limited Abdomen soft nondistended surgical dressing dry ostomy moderate amount liquid stool in ostomy bag tolerating diet urinating no difficulty surgical tenderness appropriate - Labs CBC & Chem 7: 05/17/18 06:33 05/17/18 06:33 Assessment and Plan Assessment: Impression 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 Trinity Hitchcock nurse practitioner acting as scribe for signing physician.
--- NOTE | 2018-05-20 23:15 | P.PN ---
Subjective Principal diagnosis: Bowel obstruction. The patient is here status post partial colectomy related to bowel obstruction. Pathology is still pending for appropriate analysis. The patient is seems much more comfortable. No significant chest pain or shortness of breath. No nausea, vomiting or diarrhea is noted. Appropriate output from colostomy is stated. Objective - Vital Signs Vital signs: Vital Signs Temp 98.7 F 05/20/18 07:45 Pulse 117 H 05/20/18 07:45 Resp 14 05/20/18 07:45 BP 116/83 05/20/18 07:45 Pulse Ox 93 L 05/20/18 07:45 Intake & Output 05/20/18 05/20/18 05/21/18 06:59 18:59 06:59 Intake Total 1100 477 240 Balance 1100 477 240 Intake: Intake, IV Titration 1000 Amount D5-0.45% NaCl with KCl 1000 20Meq/l 1,000 ml @ 125 mls/hr IV .Q8H [facility] Rx#: [id number] Oral 0 477 240 Other 100 Other: Voiding Method Toilet # Voids 3 1 # Bowel Movements 1 - Constitutional General appearance: Present: thin - EENT Eyes: Absent: abnormal pupil - Respiratory Respiratory: bilateral: CTA - Cardiovascular Rhythm: regular Heart sounds: normal: S1, S2 Abnormal Heart Sounds: Absent: S3 Gallop - Gastrointestinal General gastrointestinal: Present: soft. Absent: tenderness - Integumentary Integumentary: Absent: cellulitis - Psychiatric Psychiatric: Present: A&O x's 3 - Labs CBC & Chem 7: 05/17/18 06:33 05/17/18 06:33 Assessment and Plan (1) Hypertension Current Visit: Yes Status: Acute Code(s): I10 - ESSENTIAL (PRIMARY) HYPERTENSION SNOMED Code(s): 29443323 (2) Bowel obstruction Current Visit: Yes Status: Acute Code(s): K56.609 - UNSP INTESTNL OBST, UNSP TO PARTIAL VERSUS COMPLETE OBST SNOMED Code(s): 28018378 Plan: Await pathology results. Continue postoperative management. Blood pressure is now stabilizing. Discharge planning for home health and appropriate oncologic evaluation. Time with Patient: Less than 30
[2018-05-21] MEDS: HYDROcodone/APAP 5-325MG 1 EACH TAB PO PRN ×3 (00:36→14:13)
[2018-05-21 07:25] LABS: ALT 106 U/L (9-52); AST 108 U/L (14-36); Albumin 2.5 g/dL (3.5-5.0); Alkaline Phosphatase 150 U/L (38-126); Anion Gap 4 mmol/L; Blood Urea Nitrogen 13 mg/dL (7-17); Carbon Dioxide 27 mmol/L (22-30); Chloride 104 mmol/L (98-107); Glucose 84 mg/dL (74-99); Potassium 4.2 mmol/L (3.5-5.1); Sodium 135 mmol/L (137-145); Total Bilirubin 0.3 mg/dL (0.2-1.3); Total Protein 4.8 g/dL (6.3-8.2)
[2018-05-21 07:43] LABS: Basophils # (A) 0.1 k/uL (0-0.2); Basophils % (A) 1 %; Eosinophils # (A) 0.3 k/uL (0-0.7); Eosinophils % (A) 3 %; HCT 36.3 % (34.0-46.0); HGB 11.9 gm/dL (11.4-16.0); Lymphocytes # (A) 1.5 k/uL (1.0-4.8); Lymphocytes % (A) 16 %; MCH 28.6 pg (25.0-35.0); MCHC 32.7 g/dL (31.0-37.0); MCV 87.4 fL (80.0-100.0); Mean Platelet Volume 7.1; Monocytes # (A) 0.7 k/uL (0-1.0); Monocytes % (A) 8 %; Neutrophils # (A) 6.5 k/uL (1.3-7.7); Neutrophils % (A) 71 %; Platelet Count 325 k/uL (150-450); RBC 4.16 m/uL (3.80-5.40); RDW 12.9 % (11.5-15.5); WBC 9.2 k/uL (3.8-10.6)
[2018-05-21] MEDS: HEPARIN SODIUM,PORCINE 5,000 UNIT/ML 1 ML VIAL SQ SCH (08:56)
[2018-05-21] MEDS: PANTOPRAZOLE 40 MG TABLET PO SCH (08:56)
[2018-05-21] MEDS: LOSARTAN 50 MG TAB PO SCH (08:56)
[2018-05-21 09:01] VITALS: BP 138/91; PULSE 122; RESP 14; TEMP 98.5
--- NOTE | 2018-05-21 09:34 | P.PN ---
Subjective Progress Note Date: 05/21/18 sitting up in a chair daughter at the bedside. Ostomy functioning moderate amount of stool has been up Denies any nausea vomiting. Ostomy teaching has been initiated. The plan is to discharge today with home care participating in the care. Oncology consultation pending Postop May 15 repair of ventral hernia sigmoid colectomy with end ostomy Objective - Vital Signs Vital signs: Vital Signs Temp 98.5 F 05/21/18 07:55 Pulse 122 H 05/21/18 07:55 Resp 14 05/21/18 07:55 BP 138/91 05/21/18 07:55 Pulse Ox 92 L 05/21/18 07:55 Intake & Output 05/20/18 05/21/18 05/21/18 18:59 06:59 18:59 Intake Total 477 240 Balance 477 240 Intake: Oral 477 240 Other: Voiding Method Toilet # Voids 1 3 # Bowel Movements 1 - Exam Physical exam limited Abdomen soft nondistended surgical dressing dry ostomy moderate amount liquid stool in ostomy bag tolerating diet no nausea no vomiting surgical tenderness appropriate - Labs CBC & Chem 7: 05/21/18 06:43 05/21/18 06:43 Labs: Abnormal Lab Results - Last 24 Hours (Table) 05/21/18 Range/Units 06:43 Sodium 135 L (137-145) mmol/L AST 108 H (14-36) U/L ALT 106 H (9-52) U/L Alkaline Phosphatase 150 H (38-126) U/L Total Protein 4.8 L (6.3-8.2) g/dL Albumin 2.5 L (3.5-5.0) g/dL Assessment and Plan Assessment: Impression 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 Postop May 15 repair of ventral hernia, sigmoid colectomy with end colostomy Present on admission generalized abdominal pain with constipation Present on admission CAT scan of the abdomen pelvis showed apple core type lesion at the sigmoid colon Present on admission hypertension urgency improved Plan Continue postop surgical care Pain control Increase activity Initiated ostomy teaching DVT and GI prophylaxis Oncology eval pending From a surgical perspective is felt to be appropriate to be discharged today defer to the timing to the attending The above impression and plan of care have been discussed and directed by signing physician. Trinity Hitchcock nurse practitioner acting as scribe for signing physician.
[2018-05-21] MEDS ORDERED: ACETAMINOPHEN TAB 325 MG TAB PO PRN (09:38)
--- NOTE | 2018-05-21 11:45 | P.DS ---
Providers Date of admission: 05/15/18 06:50 Attending physician: Joao Greer Consults: 05/15/18 06:51 Consult Physician Urgent Consulting Provider: Ted Hood Consult Reason/Comments: bowel obstruction, check ct Do you want consulting provider notified?: Yes 05/21/18 07:08 Consult Physician Routine Consulting Provider: Dandre Madrid Consult Reason/Comments: Adenocarcinoma of the colon Do you want consulting provider notified?: Yes Primary care physician: Joao Greer - Discharge Diagnosis(es) (1) Hypertension Current Visit: Yes Status: Acute (2) Bowel obstruction Current Visit: Yes Status: Acute Hospital Course: The patient is here essentially for bowel obstruction found to have adenocarcinoma of the colon. Postoperative surgery was started with oncology and the patient did quite well. She has underlying colostomy but she is discharged in stable condition to follow-up with oncology and surgery and myself in about 1 week. The patient discharged in stable condition with appropriate pain control. Patient Condition at Discharge: Serious Plan - Discharge Summary Discharge Rx Participant: No New Discharge Prescriptions: New HYDROcodone/APAP 5-325MG [[place] 5-325] 1 each PO Q6H PRN #20 tab PRN Reason: Pain Continue Multivit-Min/Iron/Folic/Lutein [Centrum Silver Women Tablet] 1 tab PO DAILY Losartan Potassium 100 mg PO DAILY Discharge Medication List Losartan Potassium 100 mg PO DAILY 05/15/18 [History] Multivit-Min/Iron/Folic/Lutein [Centrum Silver Women Tablet] 1 tab PO DAILY 11/01 [History] HYDROcodone/APAP 5-325MG [[place] 5-325] 1 each PO Q6H PRN #20 tab 05/21/18 [Rx] Follow up Appointment(s)/Referral(s): [facility], [NON-STAFF] - Ted Hood MD [STAFF PHYSICIAN] - 1 Week Joao Greer MD [Primary Care Provider] - 1 Week Patient Instructions/Handouts: Colostomy Care (GEN) Activity/Diet/Wound Care/Special Instructions: Colostomy Care Instructions for After Hospital: Last pouching System change: 05.17.2018 Empty your osotmy pouch when it is a 1/2 full or 1/3 full in the bathroom Change the entire pouching system every 3-5 days with Home Health assistance. Current colostomy care and pouching supplies in hospital: Coloplast convex pouch cut to fit one piece with filter #[id number] with ostomy belt (pt will have three for after hospital stay) No sting prep pads (12 for use after hospital) Osotmy powder (1) Kain seals to fill skin crease by the stoma (4) Only use if using the [employer] one piece flat pouch #[id number] Mrs Forte is to change the pouching system every 3- 5 days Mrs Forte is to empty the pouching system when it is 1/2 to 1/3 full by sitting on the toilet or facing the toilet Mrs Forte will be receiving sample supplies for her colosotmy care from [facility] in 5-7 days when she is home. Home care please set up Mrs Forte for her colostomy care supplies once discharging from care to home with a [employer]. No tub bath for six weeks. Shower daily. No lifting over 10 pounds for the next 6 weeks. Encourage activity May use ice packs to surgical site. No driving while taking narcotic for pain. Discharge Disposition: HOME WITH HOME HEALTH SERVICES
--- NOTE | 2018-05-21 16:06 | P.CONS ---
History of Present Illness - Reason for Consult Consult date: 05/21/18 New Adenocarcinoma of the colon Requesting physician: Joao Greer - Chief Complaint Colon Cancer - History of Present Illness Chyna is a very pleasant 77-year-old female who originally presented to the emergency room with a chief complaint of generalized abdominal pain. She had not had a bowel movement in almost a week on presentation and did present with associated nausea. CT of abdomen and pelvis on admission showed lesion at the sigmoid colon, 45.8 cm. Concerning for neoplasm. The lesion was causing obstruction to the passage of stool. She underwent sigmoid colectomy with tumor resection and end colostomy on 05/15/18. Pathology revealed moderately differentiated adenocarcinoma with invasion muscularis propria, therefore medical oncology has been consulted. On assessment today patient and three daughters at bedside. They have many questions. The patient is recovering well after surgery. SHe causey no acute complaints and learning care of her ostomy bag. Review of Systems A 14 point review of systems assessed and completed and all negative except HPI Past Medical History Past Medical History: Cancer, Hypertension Additional Past Medical History / Comment(s): SALIVARY GLAND CANCER RIGHT NECK History of Any Multi-Drug Resistant Organisms: None Reported Past Surgical History: Joint Replacement, Orthopedic Surgery Additional Past Surgical History / Comment(s): LEFT HIP SCREWS, RIGHT ELBOW SCREWS, RIGHT KNEE HARDWARD, LEFT KNEE SCOPE Past Anesthesia/Blood Transfusion Reactions: No Reported Reaction Past Psychological History: No Psychological Hx Reported Smoking Status: Never smoker Past Alcohol Use History: Daily Past Drug Use History: None Reported - Past Family History Mother Additional Family Medical History / Comment(s): HEART DISEASE Medications and Allergies Home Medications Medication Instructions Recorded Confirmed Type Losartan Potassium 100 mg PO DAILY 05/15/18 05/15/18 History Multivit-Min/Iron/Folic/Lutein 1 tab PO DAILY 05/15/18 05/15/18 History [Centrum Silver Women Tablet] HYDROcodone/APAP 5-325MG [[place] 1 each PO Q6H PRN #20 tab 05/21/18 Rx 5-325] Allergies Allergy/AdvReac Type Severity Reaction Status Date / Time No Known Allergies Allergy Verified 05/15/18 15:29 Physical Exam Vitals: Vital Signs Temp Pulse Resp BP Pulse Ox 05/21/18 07:55 98.5 F 122 H 14 138/91 92 L 05/21/18 01:39 98.1 F 103 H 17 143/89 95 Intake and Output 05/21/18 05/21/18 05/21/18 06:59 14:59 22:59 Other: Voiding Method Toilet # Voids 3 # Bowel Movements 1 - Constitutional General appearance: cooperative, no acute distress - EENT Eyes: EOMI, PERRLA, dentition normal ENT: hard of hearing, NA/AT, normal oropharynx - Neck supple, trachea midline Neck: normal ROM - Respiratory Respiratory: bilateral: CTA (no increased effort) - Cardiovascular Rhythm: regular Heart sounds: normal: S1, S2 - Gastrointestinal Ostomy CDI, Positive stool contents and pink stoma General gastrointestinal: normal bowel sounds, soft, tenderness - Integumentary Integumentary: pale - Neurologic No focal defects Neurologic: CNII-XII intact - Musculoskeletal Musculoskeletal: gait normal, generalized weakness, strength equal bilaterally - Psychiatric Psychiatric: A&O x's 3, appropriate affect, intact judgment & insight Results CBC & Chem 7: 05/21/18 06:43 05/21/18 06:43 Labs: Abnormal Lab Results - Last 24 Hours (Table) 05/21/18 Range/Units 06:43 Sodium 135 L (137-145) mmol/L AST 108 H (14-36) U/L ALT 106 H (9-52) U/L Alkaline Phosphatase 150 H (38-126) U/L Total Protein 4.8 L (6.3-8.2) g/dL Albumin 2.5 L (3.5-5.0) g/dL CT scan - abdomen: report reviewed CT scan - pelvis: report reviewed Assessment and Plan Plan: Assessment and Recommendations: 1. 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 Madrid in approximately 3-4 weeks. - Greater than 30 minutes spent with patient and family answering questions and explaining recommendations. Time with Patient: Greater than 30
== END 2018-05-21 14:40 | disposition home health service (06) | DRG 330 ==
LOC: EC 04:41 → 3SUR 06:50
PROVIDERS: ADMIT Family Medicine; ATTEND Family Medicine
PROC: 0D1N0Z4 Bypass Sigmoid Colon to Cutaneous, Open Approach (ICD-10-PCS; 2018-05-15)
PROC: 0WQF0ZZ Repair Abdominal Wall, Open Approach (ICD-10-PCS; 2018-05-15)
PROC: 0DBN0ZZ Excision of Sigmoid Colon, Open Approach (ICD-10-PCS; principal; 2018-05-15 12:40)
DX: C18.9 Malignant neoplasm of colon, unspecified (principal); K56.609 Unspecified intestinal obstruction, unspecified as to partial versus complete obstruction; K43.6 Other and unspecified ventral hernia with obstruction, without gangrene; I16.0 Hypertensive urgency; I10 Essential (primary) hypertension; Z79.899 Other long term (current) drug therapy; Z85.818 Personal history of malignant neoplasm of other sites of lip, oral cavity, and pharynx
CPT/HCPCS: 36415; 51702; 74177; 80048; 80053; 81001; 82150; 83690; 85025; 85027; 85610; 85730; 86850; 86900; 86901; 88302; 88309; 93005; 96361; 96374; 96375; 96376; 99285

== ENCOUNTER → 2018-09-17 | Outpatient (CLI) | payer MEDICARE ==
[2018-09-17 16:28] LABS: HCT 47.5 % (34.0-46.0); HGB 15.5 gm/dL (11.4-16.0); MCH 29.4 pg (25.0-35.0); MCHC 32.7 g/dL (31.0-37.0); MCV 90.2 fL (80.0-100.0); Mean Platelet Volume 6.3; Platelet Count 313 k/uL (150-450); RBC 5.27 m/uL (3.80-5.40); RDW 13.6 % (11.5-15.5); WBC 5.8 k/uL (3.8-10.6)
[2018-09-17 16:36] LABS: Potassium 4.5 mmol/L (3.5-5.1)
== END ==
LOC: LABPAT 15:32
PROVIDERS: ATTEND Surgery
DX: Z01.812 Encounter for preprocedural laboratory examination (principal); C18.9 Malignant neoplasm of colon, unspecified
CPT/HCPCS: 36415; 80051; 85027; 86850; 86900; 86901

== ENCOUNTER 2018-09-24 10:06 | Day surgery (SDC) | payer MEDICARE ==
[2018-09-20 15:03] VITALS: BMI 19.3
[~2018-09-24 10:06] MED LIST: LACTATED RINGERS 1,000 ML IV SCH; LIDOCAINE 1% 20 ML VIAL (10MG/ML) FOR IV START INTRADERMA PRN; MIDAZOLAM 2 MG/2 ML VIAL IV PRN
[2018-09-24 10:54] VITALS: TEMP 97.9
[2018-09-24] MEDS ORDERED: LIDOCAINE 1% INJ 10MG/ML (20 ML MDV) ONE (11:43)
[2018-09-24] MEDS ORDERED: PROPOFOL 10 MG/ML 20 ML VIAL IV ONE (11:43)
--- NOTE | 2018-09-24 11:48 | P.GSHP ---
History of Present Illness H&P Date: 09/24/18 Chief Complaint: History of colon cancer This a 77-year-old female who presents today for colonoscopy. Patient scheduled of reversal of colostomy in the a.m. She's had a previous history of left colon cancer. Past Medical History Past Medical History: Cancer, Hypertension Additional Past Medical History / Comment(s): colon tumor,SALIVARY GLAND CANCER RIGHT NECK,chronic back pain History of Any Multi-Drug Resistant Organisms: None Reported Past Surgical History: Joint Replacement, Orthopedic Surgery Additional Past Surgical History / Comment(s): LEFT HIP SCREWS, RIGHT ELBOW SCREWS, RIGHT KNEE REPLACEMENT Past Anesthesia/Blood Transfusion Reactions: No Reported Reaction Additional Past Anesthesia/Blood Transfusion Reaction / Comment(s): NO HX BLOOD TRANSFUSION Smoking Status: Never smoker - Past Family History Mother Additional Family Medical History / Comment(s): HEART DISEASE Medications and Allergies Home Medications Medication Instructions Recorded Confirmed Type Losartan Potassium 100 mg PO QAM 05/15/18 09/20/18 History Multivit-Min/Iron/Folic/Lutein 1 tab PO DAILY 05/15/18 09/24/18 History [Centrum Silver Women Tablet] Acetaminophen [Tylenol] 650 mg PO Q6H PRN 09/20/18 09/24/18 History Allergies Allergy/AdvReac Type Severity Reaction Status Date / Time ibuprofen Allergy Rash/Hives Verified 09/20/18 14:58 Surgical - Exam Vital Signs Temp Pulse Resp BP Pulse Ox 97.9 F 63 16 144/84 99 09/24/18 10:52 09/24/18 10:52 09/24/18 10:52 09/24/18 10:52 09/24/18 10:52 - General well developed, no distress - Eyes PERRL - ENT normal pinna - Neck no masses - Respiratory normal expansion - Cardiovascular Rhythm: regular - Abdomen Abdomen: soft, non tender Assessment and Plan Assessment: History of colon cancer. We'll perform colonoscopy.
[2018-09-24] MEDS ORDERED: NA PHOS,M-B/NA PHOS,DI-BA 133 ML ENEMA RECTAL ONE (12:08)
--- NOTE | 2018-09-24 12:11 | P.OP ---
Date of Procedure: 09/24/18 Preoperative Diagnosis: History of colon cancer Postoperative Diagnosis: Normal colon status post Dangelo procedure Procedure(s) Performed: Colonoscopy Anesthesia: MAC Surgeon: Ted Hood Pathology: none sent Condition: stable Disposition: PACU Description of Procedure: The patient's placed on the endoscopy table in the lateral position. She received IV sedation. Digital rectal exam was performed which revealed impacted stool. This was mainly disimpacted. The flexible colonoscope was then placed patient anus and placed to 20 cm in the rectal stump. There is no evidence of any recurrent colon cancer. The scope was then withdrawn and then the colonoscope was placed through the colostomy. There was some stenosis of colostomy this was digitally dilated. And then the colonoscope was placed throughout the colon. Ileocecal valve was visualized. The cecum, ascending and transverse colon appeared normal. Transverse and remaining descending colon appeared normal. Scope was withdrawn for patient.
[2018-09-24 13:22] VITALS: PULSE 65; RESP 18
[2018-09-24 13:26] VITALS: BP 160/84
== END 2018-09-24 13:44 | disposition home or self-care (01) ==
LOC: ORWHC2ENDO 10:06
PROVIDERS: ATTEND Surgery
DX: Z08 Encounter for follow-up examination after completed treatment for malignant neoplasm (principal); Z93.3 Colostomy status; Z85.038 Personal history of other malignant neoplasm of large intestine; I10 Essential (primary) hypertension; G89.29 Other chronic pain; M54.9 Dorsalgia, unspecified; Z85.89 Personal history of malignant neoplasm of other organs and systems; Z79.899 Other long term (current) drug therapy; Z88.8 Allergy status to other drugs, medicaments and biological substances
CPT/HCPCS: 44388; J2001; J2704

== ENCOUNTER 2018-09-25 10:25 | Inpatient (IN) | payer MEDICARE ==
[2018-09-20 11:58] VITALS: BMI 19.3
[~2018-09-25 10:25] MED LIST changes: +HEPARIN SODIUM,PORCINE 5,000 UNIT/ML 1 ML VIAL SQ ONE; +HYDROmorphone 1 MG/ML 1 ML SYRINGE IVP PRN; -LACTATED RINGERS 1,000 ML IV SCH; -MIDAZOLAM 2 MG/2 ML VIAL IV PRN; +ONDANSETRON 4 MG/2 ML VIAL IVP ONE; +ceFAZolin IN SWFI 2 GM/20 ML SYRINGE IVP ONE
[2018-09-25] MEDS ORDERED: metroNIDAZOLE-NS PMX 500 MG in SALINE 1 100ML.BAG IVPB ONE (11:30)
[2018-09-25] MEDS: LACTATED RINGERS 1,000 ML IV SCH ×2 (11:32→12:26)
[2018-09-25] MEDS ORDERED: fentaNYL (PF) 50 MCG/ML 2 ML AMP IVP ONE (11:43)
[2018-09-25] MEDS ORDERED: MIDAZOLAM 2 MG/2 ML VIAL IVP ONE (11:43)
[2018-09-25] MEDS ORDERED: NALOXONE 0.4 MG/ML 1 ML VIAL IV PRN (12:00)
--- NOTE | 2018-09-25 12:07 | P.GSHP ---
History of Present Illness H&P Date: 09/25/18 Chief Complaint: History of colon cancer This a 77-year-old female who presents today for reversal of colostomy. Patient has a History of colon cancer with diverging colostomy. Past Medical History Past Medical History: Cancer, Hypertension Additional Past Medical History / Comment(s): colon tumor,SALIVARY GLAND CANCER RIGHT NECK,chronic back pain History of Any Multi-Drug Resistant Organisms: None Reported Past Surgical History: Joint Replacement, Orthopedic Surgery Additional Past Surgical History / Comment(s): LEFT HIP SCREWS, RIGHT ELBOW SCREWS, RIGHT KNEE REPLACEMENT Past Anesthesia/Blood Transfusion Reactions: No Reported Reaction Additional Past Anesthesia/Blood Transfusion Reaction / Comment(s): NO HX BLOOD TRANSFUSION Smoking Status: Never smoker - Past Family History Mother Additional Family Medical History / Comment(s): HEART DISEASE Medications and Allergies Home Medications Medication Instructions Recorded Confirmed Type Losartan Potassium 100 mg PO QAM 05/15/18 09/20/18 History Multivit-Min/Iron/Folic/Lutein 1 tab PO DAILY 05/15/18 09/24/18 History [Centrum Silver Women Tablet] Acetaminophen [Tylenol] 650 mg PO Q6H PRN 09/20/18 09/25/18 History Bisoprolol-Hctz 5-6.25 mg [Ziac 1 each PO DAILY 09/25/18 09/25/18 History 5-6.25] Allergies Allergy/AdvReac Type Severity Reaction Status Date / Time ibuprofen Allergy Rash/Hives Verified 09/25/18 11:09 Surgical - Exam Vital Signs Temp Pulse Resp BP Pulse Ox 98.3 F 67 16 114/67 97 09/25/18 11:31 09/25/18 11:31 09/25/18 11:31 09/25/18 11:31 09/25/18 11:31 - General well developed, no distress - Eyes PERRL - ENT normal pinna - Neck no masses - Respiratory normal expansion - Cardiovascular Rhythm: regular - Abdomen Colostomy left abdominal wall Abdomen: soft, non tender Assessment and Plan Assessment: History obstructing colon cancer with diverting colostomy. We'll perform reversal of colostomy.
[2018-09-25] MEDS ORDERED: ePHEDrine 50 MG/ML 1 ML AMP IVP ONE (12:19)
[2018-09-25] MEDS ORDERED: ROCURONIUM BROMIDE 10 MG/ML 10 ML VIAL IV ONE (12:25)
[2018-09-25] MEDS ORDERED: MIDAZOLAM 2 MG/2 ML VIAL ONE (12:25)
[2018-09-25] MEDS ORDERED: fentaNYL (PF) 50 MCG/ML 2 ML AMP ONE (12:25)
[2018-09-25] MEDS ORDERED: SUCCINYLCHOLINE CHLORIDE 100 MG/5 ML SYR IV ONE (12:25)
[2018-09-25] MEDS ORDERED: NEOSTIGMINE 1 MG/ML 10 ML VIAL ONE (12:25)
[2018-09-25] MEDS ORDERED: ePHEDrine SULFATE/0.9% NACL/PF 50 MG/5 ML SYRINGE IV ONE (12:25)
[2018-09-25] MEDS ORDERED: PROPOFOL 10 MG/ML 20 ML VIAL IV ONE (12:25)
[2018-09-25] MEDS ORDERED: GLYCOPYRROLATE 0.2 MG/ML 2 ML VIAL ONE (12:25)
[2018-09-25] MEDS ORDERED: LIDOCAINE 1% INJ 10MG/ML (20 ML MDV) ONE (12:25)
[2018-09-25] MEDS ORDERED: LACTATED RINGERS 1,000 ML IV ONE (13:40)
[2018-09-25] MEDS: ROPIVACAINE 400 MG, HYDROMORPHONE (PF) 3.75 MG in SODIUM CHLORIDE 0.9% 170 ML EPIDURAL PRN ×2 (15:09→15:39)
[2018-09-25] MEDS ORDERED: BENZOCAINE/MENTHOL LOZENG 1 EACH LOZENGE MUCOUS MEM PRN (15:17)
[2018-09-25] MEDS ORDERED: ONDANSETRON 4 MG/2 ML VIAL IVP PRN (15:17)
[2018-09-25] MEDS ORDERED: HYDROmorphone 1 MG/ML 1 ML SYRINGE IVP PRN (15:17)
[2018-09-25] MEDS ORDERED: METOCLOPRAMIDE 5 MG/ML 2 ML VIAL IVP PRN (15:17)
--- NOTE | 2018-09-25 15:24 | P.OP ---
Date of Procedure: 09/25/18 Preoperative Diagnosis: History of colon cancer Postoperative Diagnosis: Extensive adhesions History of colon cancer Procedure(s) Performed: Exploratory laparotomy Lysis of extensive adhesions Small bowel resection Takedown of splenic flexure Reversal of colostomy Anesthesia: REMEDIOS Surgeon: Ted Hood Estimated Blood Loss (ml): 100 Pathology: other (Small bowel, colon) Condition: stable Disposition: PACU Operative Findings: Extensive adhesions Description of Procedure: Patient's placed in the operative table in the supine position. She received general anesthesia. Her abdomen was prepped and draped usual sterile fashion. The colostomy was draped off with Ioban. The area was entered through midline incision. There was extensive adhesions noted. Approximately 45 minutes operative time used to lyse adhesions. A segment of small bowel appeared to have multiple serosal tears. At this point decided to perform a limited small bowel resection. Using the GI stapler the small bowel was transected proximal and distally with a linear cutter stapler. A [id number] functional end-to-end staple anastomosis was then created. Using the ANDERS and TA stapler. This point the small bowel was mobilized out of the pelvis. And then the rectal stump was visualized. The colostomy was transected at the level of the fascia. And then the white line of Toldt was divided. And then the splenic flexure was mobilized using the Enseal device. After a suitable length of colon was found. A [id number] functional end-to- end staple anastomosis created between the rectal stump and the descending colon. This was performed using the ANDERS and TA staplers. The abdomen was irrigated there is no bleeding seen. The fascia was closed with looped #1 PDS suture. Skin was closed ricco. Clean incisions were used for fascial closure. The colostomy was then removed by dividing the mucosa obstruction with electrocautery and then the colon was dissected from some taste tissues. The fascial defect was closed with 0 Vicryl suture. Skin was closed ricco. Per vena wound system was placed on the stapled skin. Patient tolerated the procedure well was sent to recovery in stable condition.
[2018-09-25 16:49] LABS: Basophils % (A) 0 %; Eosinophils # (A) 0.1 k/uL (0-0.7); Eosinophils % (A) 1 %; HCT 42.9 % (34.0-46.0); HGB 14.2 gm/dL (11.4-16.0); Lymphocytes # (A) 0.9 k/uL (1.0-4.8); Lymphocytes % (A) 12 %; MCH 30.1 pg (25.0-35.0); MCHC 33.1 g/dL (31.0-37.0); MCV 90.9 fL (80.0-100.0); Mean Platelet Volume 6.5; Monocytes # (A) 0.5 k/uL (0-1.0); Monocytes % (A) 7 %; Neutrophils # (A) 5.7 k/uL (1.3-7.7); Neutrophils % (A) 78 %; Platelet Count 245 k/uL (150-450); RBC 4.73 m/uL (3.80-5.40); RDW 13.2 % (11.5-15.5); WBC 7.3 k/uL (3.8-10.6)
[2018-09-25 17:02] LABS: Calcium 8.8 mg/dL (8.4-10.2); Potassium 3.8 mmol/L (3.5-5.1)
[2018-09-25] MEDS: HEPARIN SODIUM,PORCINE 5,000 UNIT/ML 1 ML VIAL SQ SCH (17:08)
[2018-09-25] MEDS: D5-0.45% NACL WITH KCL 20MEQ/L 1,000 ML IV SCH (19:37)
[2018-09-25] MEDS: FAMOTIDINE 20 MG/2 ML VIAL IV SCH (21:49)
[2018-09-26] MEDS: HEPARIN SODIUM,PORCINE 5,000 UNIT/ML 1 ML VIAL SQ SCH ×3 (00:57→16:00)
[2018-09-26] MEDS: D5-0.45% NACL WITH KCL 20MEQ/L 1,000 ML IV SCH ×3 (03:39→20:25)
[2018-09-26] MEDS: FAMOTIDINE 20 MG/2 ML VIAL IV SCH (07:21)
[2018-09-26] MEDS ORDERED: LACTATED RINGERS 1,000 ML IV ONE (11:00)
--- NOTE | 2018-09-26 12:12 | P.PN ---
Progress Note - Text Anesthesia POD 1. Status Post exploratory laparotomy with extensive lysis of adhesions and small bowel resection and takedown of splenic flexure under general endotracheal anesthesia with an epidrual catheter placed at T12 for post surgical pain releif. VAS (0, 2) with Ropivicaine 0.16 % and Dilaudid 15 mcg / cc running at 2 cc / hr. Lower extremity strength (4/4). Mild sedation. Site looks OK.
--- NOTE | 2018-09-26 13:14 | P.PN ---
Subjective Progress Note Date: 09/26/18 77-year-old female being seen in follow-up postop visit. Sitting up in a chair states is not passing gas no stool pain medication effective for pain control Patient has history of Colon cancer. September 25 reversal of colostomy, takedown of splenic flexure, small bowel resection, lysis of extensive adhesions, exploratory laparotomy Objective - Vital Signs Vital signs: Vital Signs Temp 98.9 F 09/26/18 07:00 Pulse 85 09/26/18 12:15 Resp 16 09/26/18 12:15 BP 108/70 09/26/18 12:15 Pulse Ox 94 L 09/26/18 12:15 Intake & Output 09/25/18 09/26/18 09/26/18 18:59 06:59 18:59 Intake Total 2356 1631 1000 Output Total 875 860 700 Balance 1481 771 300 Intake: IV 2356 Intake, IV Titration 1631 1000 Amount D5-0.45% NaCl with KCl 1625 20Meq/l 1,000 ml @ 125 mls/hr IV .Q8H ADENIKE Rx#: [id number] Lactated Ringers 1,000 ml 1000 @ 999 mls/hr IV .Q1H1M ONE Rx#:[id number] Ropivacaine 400 mg 6 Hydromorphone (Pf) 3.75 mg In Sodium Chloride 0.9 % 170 ml @ Per Protocol EPIDURAL .Q0M PRN Rx#: [id number] Output: Urine 675 860 700 Uretheral (Ahn) 860 700 Estimated Blood Loss 200 Other: Voiding Method Indwelling Catheter Indwelling Catheter Indwelling Catheter - Exam Physical exam 77-year-old female sitting up in a chair appearing in no acute distress Lungs adequate air movement bilaterally heart S1-S2 audible regular Abdomen surgical dressing dry prevena wound system in place soft surgical tenderness appropriate not distended. Hypoactive bowel tones no stool Extremities no edema - Labs CBC & Chem 7: 09/25/18 16:27 09/25/18 16:27 Labs: Abnormal Lab Results - Last 24 Hours (Table) 09/25/18 09/25/18 Range/Units 16:27 16:27 Lymphocytes # 0.9 L (1.0-4.8) k/uL Sodium 132 L (137-145) mmol/L BUN 24 H (7-17) mg/dL Glucose 131 H (74-99) mg/dL Assessment and Plan Assessment: Impression History of obstructing colon cancer with a diverging colostomy Postop September 25 exploratory laparotomy, lysis of extensive adhesions, small bowel resection, takedown of splenic flexure, reversal of colostomy Hypertension Plan Continue postop surgical care Monitor blood pressure and heart rate address as indicated Increase activity as tolerated Encourage the use of IS DVT and GI prophylaxis The above impression and plan of care have been discussed and directed by signing physician. Trinity Hitchcock nurse practitioner acting as scribe for signing physician.
[2018-09-27] MEDS: HEPARIN SODIUM,PORCINE 5,000 UNIT/ML 1 ML VIAL SQ SCH ×4 (00:15→23:59)
[2018-09-27] MEDS: ROPIVACAINE 400 MG, HYDROMORPHONE (PF) 3.75 MG in SODIUM CHLORIDE 0.9% 170 ML EPIDURAL PRN (02:16)
[2018-09-27] MEDS: D5-0.45% NACL WITH KCL 20MEQ/L 1,000 ML IV SCH ×4 (04:01→22:26)
--- NOTE | 2018-09-27 07:17 | P.PN ---
Progress Note - Text Progress Note Date: 09/27/18 Anesthesia POD 2. Status Post exploratory laparotomy with extensive lysis of adhesions and small bowel resection and takedown of splenic flexure under general endotracheal anesthesia with an epidrual catheter placed at T12 for post surgical pain releif. VAS (1, 3) with Ropivicaine 0.16 % and Dilaudid 15 mcg / cc running at 2 cc / hr. No motor or sensory deficits. Patient is resting comfortably. Mild sedation. Epidural site looks clean dry and intact. Continue current management.
[2018-09-27] MEDS: FAMOTIDINE 20 MG/2 ML VIAL IV SCH (08:03)
--- NOTE | 2018-09-27 12:17 | P.PN ---
Subjective Progress Note Date: 09/27/18 77-year-old female seen sitting up in a chair taking ice chips. Patient states still has surgical pain. Not passing gas no stool epidural per anesthesia for pain control no labs pending temp is 98.4 surgical dressing dry September 25 reversal of colostomy, takedown of splenic flexure, small bowel resection, lysis of extensive adhesions, exploratory laparotomy Objective - Vital Signs Vital signs: Vital Signs Temp 98.4 F 09/27/18 07:00 Pulse 92 09/27/18 07:00 Resp 18 09/27/18 07:00 BP 110/72 09/27/18 07:00 Pulse Ox 94 L 09/27/18 07:00 Intake & Output 09/26/18 09/27/18 09/27/18 18:59 06:59 18:59 Intake Total 1000 1481 17.433 Output Total 1800 600 Balance -800 881 17.433 Intake: Intake, IV Titration 1000 1481 17.433 Amount D5-0.45% NaCl with KCl 1475 20Meq/l 1,000 ml @ 125 mls/hr IV .Q8H ADENIKE Rx#: [id number] Lactated Ringers 1,000 ml 1000 @ 999 mls/hr IV .Q1H1M ONE Rx#:[id number] Ropivacaine 400 mg 6 17.433 Hydromorphone (Pf) 3.75 mg In Sodium Chloride 0.9 % 170 ml @ Per Protocol EPIDURAL .Q0M PRN Rx#: [id number] Output: Urine 1800 600 Uretheral (Ahn) 700 600 Other: Voiding Method Indwelling Catheter Indwelling Catheter Indwelling Catheter - Exam Physical exam 77-year-old female sitting up in a chair talkative epidural in place patient states is effective for pain control appearing in no acute distress Lungs adequate air movement bilaterally heart S1-S2 audible regular Abdomen surgical dressing dry prevena wound system in place soft surgical tenderness appropriate not distended. Hypoactive bowel tones no stool is not passing gas remains nothing by mouth Extremities no edema - Labs CBC & Chem 7: 09/25/18 16:27 09/25/18 16:27 Assessment and Plan Assessment: Impression History of obstructing colon cancer with a diverging colostomy Postop September 25 exploratory laparotomy, lysis of extensive adhesions, small bowel resection, takedown of splenic flexure, reversal of colostomy Hypertension Plan Continue postop surgical care Increase activity as tolerated Encourage the use of IS DVT and GI prophylaxis The above impression and plan of care have been discussed and directed by signing physician. Trinity Hitchcock nurse practitioner acting as scribe for signing physician.
[2018-09-27 18:14] LABS: ALT 27 U/L (9-52); AST 20 U/L (14-36); Albumin 2.5 g/dL (3.5-5.0); Alkaline Phosphatase 89 U/L (38-126); Anion Gap 4 mmol/L; Blood Urea Nitrogen 8 mg/dL (7-17); Calcium 8.8 mg/dL (8.4-10.2); Carbon Dioxide 25 mmol/L (22-30); Chloride 104 mmol/L (98-107); Glucose 119 mg/dL (74-99); Potassium 4.7 mmol/L (3.5-5.1); Sodium 133 mmol/L (137-145); Total Bilirubin 0.5 mg/dL (0.2-1.3); Total Protein 5.1 g/dL (6.3-8.2)
--- NOTE | 2018-09-27 21:51 | CONS ---
CONSULTATION DATE OF SERVICE: 09/27/2018 REASON FOR CONSULTATION: Advice regarding hypertension, and multiple multiple medical problems requested by Dr. Hood. HISTORY OF PRESENT ILLNESS: This is a 77 -year-old woman with a past medical history of hypertension, DJD being followed by Dr. Greer in the outpatient setting, underwent exploratory laparotomy, lysis of adhesions and small precision take down splenic flexure, reversal of colostomy by Dr. Hood. The patient tolerated the procedure well. The patient is being closely monitored at this time. There is no history of fever, rigors or chills. No history of headache, loss of consciousness, seizures. PAST MEDICAL HISTORY: History of hypertension, history of colon cancer, salivary gland cancer, history of DJD. MEDICATIONS: Prior to admission include home medications are: 1. Multivitamins one p.o. daily. 2. Losartan 100 mg q.a.m. 3. Ziac 6.25 mg p.o. daily. 4. Tylenol 650 mg p.o. q.6h p.r.n. ALLERGIES: IBUPROFEN. FAMILY HISTORY: History of heart disease in the family. SOCIAL HISTORY: No history of smoking. Occasional alcohol intake. REVIEW OF SYSTEMS: ENT: No diminished hearing. No diminished vision. CARDIOVASCULAR: No angina or palpitations. RESPIRATION as mentioned earlier. GI: As mentioned earlier. : No dysuria. NERVOUS SYSTEM: No numbness or weakness. ALLERGY/IMMUNOLOGY: No asthma or hayfever. MUSCULOSKELETAL: As mentioned earlier. HEMATOLOGY/ONCOLOGY: No history of diabetes or hypothyroidism. CONSTITUTIONAL: As mentioned earlier. Dermatology: Negative. Rheumatology: Negative. Psychiatry: As mentioned earlier. PHYSICAL EXAMINATION: Alert and oriented x3. The pulse is 90, blood pressure 130/70, respiration 16, temperature 97.7, pulse ox 94% on room air. HEENT: Conjunctivae normal. Oral mucosa moist. Neck is no jugular venous distention. No carotid bruit. No lymph node enlargement. Cardiovascular system: S1, S2 muffled. Respiratory: Breath sounds diminished in the bases. Scattered rhonchi and crackles. ABDOMEN: Soft, status post surgery. Legs are no edema. No swelling. Central nervous system: No focal deficits. LABS: CBC within normal limits. Sodium 132, other labs are noted. ASSESSMENT: 1. Status post exploratory laparotomy, lysis of adhesions and small bowel resection, takedown splenic flexure, reversal colostomy. 2. History of colon cancer. 3. History of hypertension. 4. History of salivary gland tumor. 5. History of degenerative joint disease. 6. Mild hyponatremia. RECOMMENDATIONS AND DISCUSSION: In this 77-year-old woman who presented after surgery, at this time, I recommend to continue the current medications, management and symptomatic treatment. I also recommend repeat labs. DVT prophylaxis. Incentive spirometry. Proton pump inhibitors. H2 blockers. We will follow the patient closely with you and the patient may asked to follow up with primary physician, Dr. Greer also. Thank you Dr. Hood for letting us participate in the care of this patient. The home medications will be continued. MMODL / IJN: [id number] / MTDD
[2018-09-28] MEDS: ROPIVACAINE 400 MG, HYDROMORPHONE (PF) 3.75 MG in SODIUM CHLORIDE 0.9% 170 ML EPIDURAL PRN (02:38)
[2018-09-28 07:39] LABS: Basophils % (A) 0 %; Eosinophils # (A) 0.2 k/uL (0-0.7); Eosinophils % (A) 3 %; HCT 38.1 % (34.0-46.0); HGB 12.2 gm/dL (11.4-16.0); Lymphocytes % (A) 18 %; MCH 29.4 pg (25.0-35.0); MCHC 32.1 g/dL (31.0-37.0); MCV 91.7 fL (80.0-100.0); Mean Platelet Volume 7.4; Monocytes # (A) 0.6 k/uL (0-1.0); Monocytes % (A) 10 %; Neutrophils # (A) 3.4 k/uL (1.3-7.7); Neutrophils % (A) 64 %; Platelet Count 185 k/uL (150-450); RBC 4.15 m/uL (3.80-5.40); RDW 13.3 % (11.5-15.5); WBC 5.3 k/uL (3.8-10.6)
[2018-09-28] MEDS: D5-0.45% NACL WITH KCL 20MEQ/L 1,000 ML IV SCH ×2 (08:49→18:17)
[2018-09-28] MEDS: FAMOTIDINE 20 MG/2 ML VIAL IV SCH (08:50)
[2018-09-28] MEDS: HEPARIN SODIUM,PORCINE 5,000 UNIT/ML 1 ML VIAL SQ SCH ×3 (08:50→23:42)
[2018-09-28] MEDS: LOSARTAN 50 MG TAB PO SCH ×2 (08:51→09:02)
[2018-09-28] MEDS: BISOPROLOL-HCTZ 5-6.25 MG 1 EACH TAB PO SCH ×2 (08:51→09:01)
--- NOTE | 2018-09-28 14:34 | P.PN ---
Subjective Progress Note Date: 09/28/18 CHIEF COMPLAINT: Status post colostomy reversal HISTORY OF PRESENT ILLNESS: The patient is a 77-year-old female status post colostomy reversal. Her daughters are helping her ambulate around the [place]. " I am still hungry.". No reports of abdominal distention. Pain is controlled. No fevers or chills. She reports intolerance to ice chips and popsicles as cold liquids irritate her stomach. PHYSICAL EXAM: VITAL SIGNS: GENERAL: Well-developed in no acute distress. HEENT: No sclera icterus. Extraocular movements grossly intact. Dry buccal mucosa. Head is atraumatic, normocephalic. Hears conversational speech. No nasal drainage. NECK: Supple without lymphadenopathy. CHEST: Non-labored respirations and equal bilateral excursions. CARDIOVASCULAR: Palpable 2+ radial pulses. ABDOMEN: Soft. Nondistended. Prevena wound VAC intact MUSCULOSKELETAL: No clubbing, cyanosis or edema. NEUROLOGIC: No focal or lateralizing signs. Cranial nerves II through XII grossly intact. PSYCH: Appropriate affect. Alert and oriented to person, place and time. SKIN: Well perfused. Good skin turgor. ASSESSMENT: 1. Status post colostomy reversal. 2. History of colon cancer PLAN: 1. Cautious start of warm beverages only 2. Continue ambulation Objective - Vital Signs Vital signs: Vital Signs Temp 97.7 F 09/28/18 07:25 Pulse 101 H 09/28/18 07:25 Resp 18 09/28/18 07:25 BP 111/76 09/28/18 07:25 Pulse Ox 97 09/28/18 07:25 Intake & Output 09/27/18 09/28/18 09/28/18 18:59 06:59 18:59 Intake Total 17.433 1521.95 Output Total 900 750 Balance -882.567 771.95 Weight 52.617 kg Intake: Intake, IV Titration 17.433 1521.95 Amount D5-0.45% NaCl with KCl 1475 20Meq/l 1,000 ml @ 125 mls/hr IV .Q8H [facility] Rx#: [id number] Ropivacaine 400 mg 17.433 46.95 Hydromorphone (Pf) 3.75 mg In Sodium Chloride 0.9 % 170 ml @ Per Protocol EPIDURAL .Q0M PRN Rx#: [id number] Output: Urine 900 750 Uretheral (Ahn) 750 Other: Voiding Method Indwelling Catheter Indwelling Catheter Indwelling Catheter - Labs CBC & Chem 7: 09/28/18 06:43 09/27/18 17:43 Labs: Abnormal Lab Results - Last 24 Hours (Table) 09/27/18 Range/Units 17:43 Sodium 133 L (137-145) mmol/L Glucose 119 H (74-99) mg/dL Total Protein 5.1 L (6.3-8.2) g/dL Albumin 2.5 L (3.5-5.0) g/dL
--- NOTE | 2018-09-28 15:09 | P.PN ---
Progress Note - Text 09/28 1515 77-year-old female status post colostomy reversal by Dr. Hood. Patient has an epidural catheter running at 3 mL an hour with a pain score of 5. Ambulating no motor or sensory deficits. DC epidural
--- NOTE | 2018-09-28 18:02 | PN ---
PROGRESS NOTE DATE OF SERVICE: 09/28/2018 I am covering for Dr. Greer. This 77-year-old woman was admitted after exploratory laparotomy, lysis of adhesions, bowel resection, takedown splenic flexure, reversal of colostomy; is being closely monitored at this time. The patient has not passed any flatus. No chest pain. No palpitation. EXAM: Alert and oriented. Pulse 101, blood pressure 111/76, respiration 18, temperature 97.7, pulse ox 97% on room air skin: HEENT: Conjunctivae normal. Oral mucosa moist. NECK: No jugular venous distention. No lymph node enlargement. CARDIOVASCULAR: S1, S2. RESPIRATORY: Diminished breath sounds at the bases. A few scattered rhonchi. ABDOMEN: Soft, status post surgery. LEGS: No swelling. NERVOUS SYSTEM: No focal deficits. LABS: CBC within normal limits. Sodium 133, glucose 119, albumin is 2.5. ASSESSMENT: 1. Status post exploratory laparotomy, lysis of adhesions, small-bowel resection, takedown splenic flexure, reversal of colostomy. 2. Colon cancer. 3. History of hypertension. 4. History of salivary gland tumor. 5. History of degenerative joint disease. 6. Mild hyponatremia. RECOMMENDATIONS AND DISCUSSION: Recommend to continue current medication, continue the symptomatic management, DVT prophylaxis. Otherwise, continue the rest of the medications. Closely follow with surgery. Proton pump inhibitors. Further recommendation to follow. MMODL / IJN: [id number] /
[2018-09-28] MEDS: ALVIMOPAN 12 MG CAPSULE PO SCH (20:32)
[2018-09-29] MEDS: D5-0.45% NACL WITH KCL 20MEQ/L 1,000 ML IV SCH ×4 (01:33→20:39)
[2018-09-29 08:12] LABS: Anion Gap 4 mmol/L; Blood Urea Nitrogen 5 mg/dL (7-17); Carbon Dioxide 25 mmol/L (22-30); Chloride 108 mmol/L (98-107); Glucose 114 mg/dL (74-99); Magnesium 1.6 mg/dL (1.6-2.3); Potassium 4.6 mmol/L (3.5-5.1); Sodium 137 mmol/L (137-145)
[2018-09-29] MEDS: BISOPROLOL-HCTZ 5-6.25 MG 1 EACH TAB PO SCH (09:12)
[2018-09-29] MEDS: ALVIMOPAN 12 MG CAPSULE PO SCH ×2 (09:12→20:39)
[2018-09-29] MEDS: FAMOTIDINE 20 MG/2 ML VIAL IV SCH (09:12)
[2018-09-29] MEDS: LOSARTAN 50 MG TAB PO SCH (09:12)
[2018-09-29] MEDS: HEPARIN SODIUM,PORCINE 5,000 UNIT/ML 1 ML VIAL SQ SCH ×3 (09:13→23:14)
--- NOTE | 2018-09-29 12:21 | P.PN ---
Subjective Progress Note Date: 09/29/18 CHIEF COMPLAINT: Status post colostomy reversal HISTORY OF PRESENT ILLNESS: The patient is a 77-year-old female status post colostomy reversal. She feels well. Her daughter is at bedside. She is tolerating clear liquids. No reports of nausea. No abdominal gas bloat. PHYSICAL EXAM: VITAL SIGNS: Reviewed GENERAL: Well-developed in no acute distress. HEENT: No sclera icterus. Extraocular movements grossly intact. Moist buccal mucosa. Head is atraumatic, normocephalic. Hears conversational speech. No nasal drainage. NECK: Supple without lymphadenopathy. CHEST: Non-labored respirations and equal bilateral excursions. CARDIOVASCULAR: Palpable 2+ radial pulses. ABDOMEN: Soft. Nondistended. Prevena wound VAC intact MUSCULOSKELETAL: No clubbing, cyanosis or edema. NEUROLOGIC: No focal or lateralizing signs. Cranial nerves II through XII grossly intact. PSYCH: Appropriate affect. Alert and oriented to person, place and time. SKIN: Well perfused. Good skin turgor. ASSESSMENT: 1. Status post colostomy reversal. 2. History of colon cancer PLAN: 1. Continue clear liquid diet sparingly. 2. Continue ambulation 3. She has low magnesium level which we will correct. Objective - Vital Signs Vital signs: Vital Signs Temp 98.0 F 09/29/18 09:20 Pulse 94 09/29/18 09:20 Resp 18 09/29/18 09:20 BP 151/97 09/29/18 10:44 Pulse Ox 95 09/29/18 09:20 Intake & Output 09/28/18 09/29/18 09/29/18 18:59 06:59 18:59 Intake Total 1000 2030 Output Total 900 2200 Balance 100 -170 Weight 52.617 kg Intake: Intake, IV Titration 1000 1250 Amount D5-0.45% NaCl with KCl 1000 1250 20Meq/l 1,000 ml @ 125 mls/hr IV .Q8H [facility] Rx#: [id number] Oral 780 Output: Urine 900 2200 Uretheral (Ahn) 900 2200 Other: Voiding Method Indwelling Catheter Indwelling Catheter Indwelling Catheter - Labs CBC & Chem 7: 09/28/18 06:43 09/29/18 07:08 Labs: Abnormal Lab Results - Last 24 Hours (Table) 09/29/18 Range/Units 07:08 Chloride 108 H (98-107) mmol/L BUN 5 L (7-17) mg/dL Glucose 114 H (74-99) mg/dL Assessment and Plan (1) S/P colectomy Current Visit: Yes Status: Acute Code(s): Z90.49 - ACQUIRED ABSENCE OF OTHER SPECIFIED PARTS OF DIGESTIVE TRACT SNOMED Code(s): 685748389 (2) Low magnesium level Current Visit: Yes Status: Acute Code(s): R79.0 - ABNORMAL LEVEL OF BLOOD MINERAL SNOMED Code(s): 329006558 (3) Cancer of colon Current Visit: Yes Status: Acute Code(s): C18.9 - MALIGNANT NEOPLASM OF COLON, UNSPECIFIED SNOMED Code(s): 917700541 (4) Bowel obstruction Current Visit: No Status: Acute Code(s): K56.609 - UNSP INTESTNL OBST, UNSP TO PARTIAL VERSUS COMPLETE OBST SNOMED Code(s): 46708921
[2018-09-29] MEDS: MAGNESIUM SULFATE-D5W PMX 1 GM in DEXTROSE/WATER 1 100ML.BAG IVPB SCH ×2 (15:54→17:47)
[2018-09-29] MEDS: ACETAMINOPHEN TAB 325 MG TAB PO PRN (16:00)
[2018-09-29] MEDS ORDERED: hydrALAZINE HCL 20 MG/ML 1 ML VIAL IVP PRN (17:06)
[2018-09-29] MEDS: amLODIPine 5 MG TAB PO SCH (17:47)
--- NOTE | 2018-09-29 20:47 | PN ---
PROGRESS NOTE DATE OF SERVICE: 09/29/2018 I am covering fore Dr. Greer. This 77-year-old woman was admitted after exploratory laparotomy and lysis of adhesions. She is being closely monitored at this time. The patient's blood pressure is slightly elevated. No chest pain. No palpitations. No fever. PHYSICAL EXAM: Alert and oriented. Pulse 70, blood pressure 160/94, respirations 18, temperature 98 degrees, pulse ox 98% on room air. in HEENT: Conjunctivae normal. Oral mucosa moist. NECK: No jugular venous distention. No lymph node enlargement. CARDIOVASCULAR: S1, S2. RESPIRATORY: Diminished breath sounds at the bases. No rhonchi, no crackles. ABDOMEN: Soft, status post surgery. LEGS: No swelling. NERVOUS SYSTEM: No focal deficits. LABS: CBC within normal. Sodium 137, potassium 4.6. ASSESSMENT: 1. Status post exploratory laparotomy, lysis of adhesions, small-bowel resection, takedown splenic flexure, reversal of colostomy. 2. Colon cancer. 3. Hypertension. 4. History of salivary gland tumor. 5. History of degenerative joint disease. 6. Mild hyponatremia. RECOMMENDATIONS: Continue current management, continue symptomatic treatment. The patient is on bisoprolol hydrochlorothiazide and losartan 100 mg q.a.m. I would reduce IV fluids at this time. Otherwise, I would also use p.r.n. antihypertensive medication. Also, use Norvasc. Will continue to monitor. Further recommendations to follow. Dr. Greer will follow. MMODL / IJN: [id number] /
[2018-09-30] MEDS: BISOPROLOL-HCTZ 5-6.25 MG 1 EACH TAB PO SCH (07:57)
[2018-09-30] MEDS: ALVIMOPAN 12 MG CAPSULE PO SCH ×2 (07:57→21:18)
[2018-09-30] MEDS: amLODIPine 5 MG TAB PO SCH (07:59)
[2018-09-30] MEDS: HEPARIN SODIUM,PORCINE 5,000 UNIT/ML 1 ML VIAL SQ SCH ×2 (08:00→15:51)
[2018-09-30] MEDS: FAMOTIDINE 20 MG/2 ML VIAL IV SCH ×3 (08:00→21:18)
[2018-09-30] MEDS: LOSARTAN 50 MG TAB PO SCH (08:14)
--- NOTE | 2018-09-30 08:31 | P.PN ---
Subjective Progress Note Date: 09/30/18 This can impression a 77-year-old white male status post colectomy. No BM as of yet. However she feels as though there is element of tenesmus. Objective - Vital Signs Vital signs: Vital Signs Temp 98.8 F 09/30/18 08:17 Pulse 87 09/30/18 08:17 Resp 16 09/30/18 08:17 BP 170/100 09/30/18 08:17 Pulse Ox 95 09/30/18 08:17 Intake & Output 09/29/18 09/30/18 09/30/18 18:59 06:59 18:59 Intake Total 1200 1080 Output Total 900 2600 Balance 300 -1520 Intake: Intake, IV Titration 1200 600 Amount D5-0.45% NaCl with KCl 1000 600 20Meq/l 1,000 ml @ 60 mls /hr IV .[id number] [facility] Rx#: [id number] Magnesium Sulfate-D5w Pmx 200 1 gm In Dextrose/Water 1 100ml.bag @ 100 mls/hr IVPB Q1H [facility] Rx#: [id number] Oral 480 Output: Urine 900 2600 Uretheral (Ahn) 2600 Other: Voiding Method Indwelling Catheter Indwelling Catheter - Constitutional General appearance: Present: no acute distress - EENT Eyes: Absent: abnormal pupil - Neck Neck: Present: lymphadenopathy - Respiratory Respiratory: bilateral: CTA - Cardiovascular Rhythm: regular Heart sounds: normal: S1, S2 - Gastrointestinal General gastrointestinal: Present: soft. Absent: tenderness - Psychiatric Psychiatric: Present: A&O x's 3 - Labs CBC & Chem 7: 09/28/18 06:43 09/29/18 07:08 Assessment and Plan (1) Cancer of colon Current Visit: Yes Status: Acute Code(s): C18.9 - MALIGNANT NEOPLASM OF COLON, UNSPECIFIED SNOMED Code(s): 030755144 (2) S/P colectomy Current Visit: Yes Status: Acute Code(s): Z90.49 - ACQUIRED ABSENCE OF OTHER SPECIFIED PARTS OF DIGESTIVE TRACT SNOMED Code(s): 321890791 (3) Hypertension Current Visit: No Status: Acute Code(s): I10 - ESSENTIAL (PRIMARY) HYPERTENSION SNOMED Code(s): 53640889 Plan: Watch vital signs closely. Continue current regimen of treatment. We'll continue follow with general surgery. Hopefully she'll have BM soon and anticipate discharge in next 24-48 hours. Time with Patient: Less than 30
[2018-09-30] MEDS: D5-0.45% NACL WITH KCL 20MEQ/L 1,000 ML IV SCH (11:54)
--- NOTE | 2018-09-30 14:52 | P.PN ---
Subjective Progress Note Date: 09/30/18 77-year-old female sitting up in bed states feels urge to have a bowel movement but has had no stools.reports not passing gas Reports no nausea vomiting states just not feeling hungry September 25 reversal of colostomy, takedown of splenic flexure, small bowel resection, lysis of extensive adhesions, exploratory laparotomy Objective - Vital Signs Vital signs: Vital Signs Temp 98.8 F 09/30/18 08:17 Pulse 87 09/30/18 08:17 Resp 16 09/30/18 08:17 BP 140/80 09/30/18 11:57 Pulse Ox 95 09/30/18 08:17 Intake & Output 09/29/18 09/30/18 09/30/18 18:59 06:59 18:59 Intake Total 1200 1080 360 Output Total 900 2600 700 Balance 300 -1520 -340 Weight 52.617 kg Intake: Intake, IV Titration 1200 600 360 Amount D5-0.45% NaCl with KCl 1000 600 360 20Meq/l 1,000 ml @ 60 mls /hr IV .[id number] [facility] Rx#: [id number] Magnesium Sulfate-D5w Pmx 200 1 gm In Dextrose/Water 1 100ml.bag @ 100 mls/hr IVPB Q1H [facility] Rx#: [id number] Oral 480 Output: Urine 900 2600 700 Uretheral (Ahn) 2600 Other: Voiding Method Indwelling Catheter Indwelling Catheter Indwelling Catheter - Exam Physical exam 77-year-old female sitting up in bed appearing in no acute distress Lungs adequate air movement bilaterally heart S1-S2 audible regular Abdomen surgical dressing dry prevena wound system in place soft surgical tenderness appropriate not distended. 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 Trinity Hitchcock nurse practitioner acting as scribe for signing physician.
[2018-10-01] MEDS: HEPARIN SODIUM,PORCINE 5,000 UNIT/ML 1 ML VIAL SQ SCH ×4 (00:01→23:27)
[2018-10-01] MEDS: ALVIMOPAN 12 MG CAPSULE PO SCH ×2 (07:56→22:21)
[2018-10-01] MEDS: LOSARTAN 50 MG TAB PO SCH (07:56)
[2018-10-01] MEDS: amLODIPine 5 MG TAB PO SCH (07:56)
[2018-10-01] MEDS: BISOPROLOL-HCTZ 5-6.25 MG 1 EACH TAB PO SCH (07:56)
[2018-10-01] MEDS: FAMOTIDINE 20 MG/2 ML VIAL IV SCH (07:56)
--- NOTE | 2018-10-01 09:09 | CDI ---
Documentation Clarification Form Date: 10/01/18 From: Margaret Gonzalez RN Admit Date: 09/25/2018 10:25:00 AM Patient Name: Chyna Forte Visit Number: [id number] ATTENTION: The Clinical Documentation Specialists (CDI) and [facility] Coding Staff appreciate your assistance in clarifying documentation. Please respond to the clarification below the line at the bottom and electronically sign. The CDI & [facility] Coding staff will review the response and follow-up if needed. Please note: Queries are made part of the Legal Health Record. If you have any questions, please contact the author of this message via ITS. Dr. Joao Greer, Can you please render your opinion on the following documentation? Presented for reversal of colostomy History/Risk Factors: colon cancer, HTN Clinical Indicators: Labs: Albumin 2.5, Total Protein 5.1 Current BMI: 19.3 Insufficient energy intake: Per RD inadequate energy intake RD notes; Underweight, Nutrition intake poor, Prolonged NPO Treatment: Dietary Consult: yes Supplements: Protein supplements Patient declined supplements Lab monitoring: Albumin, total protein In your professional opinion, can you please clarify if these findings signify one of the following conditions? Mild Protein-Calorie Malnutrition Moderate Protein-Calorie Malnutrition Severe Protein-Calorie Malnutrition Malnutrition, unspecified Other condition, please specify Unable to determine MTDD
[2018-10-01] MEDS: ACETAMINOPHEN TAB 325 MG TAB PO PRN (10:48)
--- NOTE | 2018-10-01 13:28 | P.PN ---
Subjective This is a Continuing progress notel on a 77-year-old white female essentially admitted for reversal of colostomy and takedown of splenic flexure small bowel resection and lysis of adhesions. Objective - Vital Signs Vital signs: Vital Signs Temp 98.6 F 10/01/18 07:00 Pulse 79 10/01/18 10:19 Resp 16 10/01/18 08:00 BP 145/88 10/01/18 10:19 Pulse Ox 96 10/01/18 07:00 Intake & Output 09/30/18 10/01/18 10/01/18 18:59 06:59 18:59 Intake Total 360 480 Output Total 700 1950 300 Balance -340 -1470 -300 Weight 52.617 kg Intake: Intake, IV Titration 360 480 Amount D5-0.45% NaCl with KCl 360 480 20Meq/l 1,000 ml @ 60 mls /hr IV .[id number] [facility] Rx#: [id number] Output: Urine 700 1950 300 Uretheral (Ahn) 1400 300 Other: Voiding Method Indwelling Catheter Indwelling Catheter Indwelling Catheter - Constitutional General appearance: Present: average body habitus - EENT Eyes: Absent: abnormal pupil - Neck Neck: Present: lymphadenopathy - Respiratory Respiratory: bilateral: CTA - Cardiovascular Rhythm: regular Heart sounds: normal: S1, S2 Abnormal Heart Sounds: Absent: S3 Gallop - Gastrointestinal General gastrointestinal: Present: soft. Absent: tenderness - Psychiatric Psychiatric: Present: A&O x's 3. Absent: appropriate affect - Labs CBC & Chem 7: 09/28/18 06:43 09/29/18 07:08 Assessment and Plan (1) Cancer of colon Current Visit: Yes Status: Acute Code(s): C18.9 - MALIGNANT NEOPLASM OF COLON, UNSPECIFIED SNOMED Code(s): 661576622 (2) S/P colectomy Current Visit: Yes Status: Acute Code(s): Z90.49 - ACQUIRED ABSENCE OF OTHER SPECIFIED PARTS OF DIGESTIVE TRACT SNOMED Code(s): 863514242 (3) Hypertension Current Visit: No Status: Acute Code(s): I10 - ESSENTIAL (PRIMARY) HYPERTENSION SNOMED Code(s): 70526286 Plan: Continue current regimen or treatment. Anticipate discharge soon once Colostomy reversal is secured and corrected. We will continue follow with general surgery.
[2018-10-01] MEDS: D5-0.45% NACL WITH KCL 20MEQ/L 1,000 ML IV SCH (17:07)
--- NOTE | 2018-10-01 18:17 | P.PN ---
Progress Note - Text Progress Note Date: 10/01/18 the patient is resting ccomfortably in her bed. She has had no bowel movemovements today.She denies any significant pain. She has had flatus. On exam her vital signs are stable. Abdomen soft. Incision site is clean dry and intact. The patient has a resolving ileus. She will have her diet advanced slowly.
[2018-10-01] MEDS: FAMOTIDINE 20 MG TAB PO SCH (22:21)
[2018-10-02] MEDS: D5-0.45% NACL WITH KCL 20MEQ/L 1,000 ML IV SCH (01:19)
[2018-10-02 07:03] VITALS: BP 123/75; PULSE 82; RESP 18; TEMP 98.1
--- NOTE | 2018-10-02 08:08 | P.PN ---
Subjective Progress Note Date: 10/02/18 This is a Continuing progress notel on a 77-year-old white female essentially admitted for reversal of colostomy and takedown of splenic flexure small bowel resection and lysis of adhesions. We anticipate discharge today. Objective - Vital Signs Vital signs: Vital Signs Temp 98.1 F 10/02/18 07:01 Pulse 82 10/02/18 07:01 Resp 18 10/02/18 07:01 BP 123/75 10/02/18 07:01 Pulse Ox 94 L 10/02/18 07:01 Intake & Output 10/01/18 10/02/18 10/02/18 18:59 06:59 18:59 Intake Total 450 360 Output Total 550 Balance -100 360 Intake: Intake, IV Titration 360 Amount D5-0.45% NaCl with KCl 360 20Meq/l 1,000 ml @ 60 mls /hr IV .[id number] [facility] Rx#: [id number] Oral 450 Output: Urine 550 Uretheral (Ahn) 300 Other: Voiding Method Toilet Toilet # Bowel Movements 1 - Constitutional General appearance: Present: average body habitus - EENT Eyes: Absent: abnormal pupil - Neck Neck: Absent: lymphadenopathy - Respiratory Respiratory: bilateral: CTA - Cardiovascular Rhythm: regular Heart sounds: normal: S1, S2 Abnormal Heart Sounds: Absent: S3 Gallop - Gastrointestinal General gastrointestinal: Present: soft. Absent: tenderness - Labs CBC & Chem 7: 09/28/18 06:43 09/29/18 07:08 Assessment and Plan (1) Cancer of colon Current Visit: Yes Status: Acute Code(s): C18.9 - MALIGNANT NEOPLASM OF COLON, UNSPECIFIED SNOMED Code(s): 429913394 (2) S/P colectomy Current Visit: Yes Status: Acute Code(s): Z90.49 - ACQUIRED ABSENCE OF OTHER SPECIFIED PARTS OF DIGESTIVE TRACT SNOMED Code(s): 519926413 (3) Hypertension Current Visit: No Status: Acute Code(s): I10 - ESSENTIAL (PRIMARY) HYPERTENSION SNOMED Code(s): 61856000 Plan: Once per discharge later today. Patient's follow-up with me in about 7-10 days as needed.
[2018-10-02] MEDS: FAMOTIDINE 20 MG TAB PO SCH (09:05)
[2018-10-02] MEDS: HEPARIN SODIUM,PORCINE 5,000 UNIT/ML 1 ML VIAL SQ SCH (09:05)
[2018-10-02] MEDS: ALVIMOPAN 12 MG CAPSULE PO SCH (09:05)
[2018-10-02] MEDS: amLODIPine 5 MG TAB PO SCH (09:05)
[2018-10-02] MEDS: BISOPROLOL-HCTZ 5-6.25 MG 1 EACH TAB PO SCH (09:05)
[2018-10-02] MEDS: LOSARTAN 50 MG TAB PO SCH (09:05)
--- NOTE | 2018-10-02 16:48 | P.DS ---
Providers Date of admission: 09/25/18 10:25 Expected date of discharge: 10/02/18 Attending physician: Ted Hood Consults: 09/25/18 15:24 Consult Physician Routine Consulting Provider: Joao Greer Consult Reason/Comments: Medical management Do you want consulting provider notified?: Yes Primary care physician: Joao Greer Hospital Course: This is a 77-year-old female who underwent reversal of colostomy. A she did well postoperatively. Please see hospital chart for details. Procedures: Reversal of colostomy Patient Condition at Discharge: Good Plan - Discharge Summary Discharge Rx Participant: Yes New Discharge Prescriptions: No Action Multivit-Min/Iron/Folic/Lutein [Centrum Silver Women Tablet] 1 tab PO DAILY Losartan Potassium 100 mg PO QAM Acetaminophen [Tylenol] 650 mg PO Q6H PRN PRN Reason: Pain Bisoprolol-Hctz 5-6.25 mg [Ziac 5-6.25] 1 tab PO DAILY Discharge Medication List Losartan Potassium 100 mg PO QAM 05/15/18 [History] Multivit-Min/Iron/Folic/Lutein [Centrum Silver Women Tablet] 1 tab PO DAILY 11/01 [History] Acetaminophen [Tylenol] 650 mg PO Q6H PRN 09/20/18 [History] Bisoprolol-Hctz 5-6.25 mg [Ziac 5-6.25] 1 tab PO DAILY 09/25/18 [History] Follow up Appointment(s)/Referral(s): [facility], [NON-STAFF] - Joao Greer MD [Primary Care Provider] - 10 Days (Office is closed, Please call for follow up appointment.) Ted Hood MD [STAFF PHYSICIAN] - 10/09/18 10:15 am Patient Instructions/Handouts: Open Colostomy Reversal (DC) Discharge Disposition: HOME SELF-CARE
--- NOTE | 2018-10-04 15:21 | CDI ---
Documentation Clarification Form Date: 9:09:00 AM From: Yulissa Winchester Admit Date: 09/25/2018 10:25:00 AM Patient Name: Chyna Forte Visit Number: [id number] Discharge Date: 10/02/2018 5:58:00 PM ATTENTION: The Clinical Documentation Specialists (CDI) and [facility] Coding Staff appreciate your assistance in clarifying documentation. Please respond to the clarification below the line at the bottom and electronically sign. The CDI & [facility] Coding staff will review the response and follow-up if needed. Please note: Queries are made part of the Legal Health Record. If you have any questions, please contact the author of this message via ITS. Dr. Joao Greer: Can you please render your opinion on the following documentation? Presented for reversal of colostomy History/Risk Factors: colon cancer, HTN Clinical Indicators: Labs: Albumin 2.5, Total Protein 5.1 Current BMI: 19.3 Insufficient energy intake: Per RD inadequate energy intake RD notes; Underweight, Nutrition intake poor, Prolonged NPO Treatment: Dietary Consult: yes Supplements: Protein supplements Patient declined supplements Lab monitoring: Albumin, total protein In your professional opinion, can you please clarify if these findings signify one of the following conditions? Mild Protein-Calorie Malnutrition Moderate Protein-Calorie Malnutrition Severe Protein-Calorie Malnutrition Other condition, please specify Unable to determine MTDD
== END 2018-10-02 17:58 | disposition home health service (06) | DRG 330 ==
LOC: 2ORMAIN 10:25 → 4SSUR 15:00
PROVIDERS: ADMIT Surgery; ATTEND Surgery
PROC: 0DN80ZZ Release Small Intestine, Open Approach (ICD-10-PCS; 2018-09-25)
PROC: 0DB80ZZ Excision of Small Intestine, Open Approach (ICD-10-PCS; principal; 2018-09-25 11:55)
DX: Z43.3 Encounter for attention to colostomy (principal); E87.1 Hypo-osmolality and hyponatremia; K56.7 Ileus, unspecified; E44.0 Moderate protein-calorie malnutrition; Z68.1 Body mass index [BMI] 19.9 or less, adult; K66.0 Peritoneal adhesions (postprocedural) (postinfection); I10 Essential (primary) hypertension; M19.90 Unspecified osteoarthritis, unspecified site; G89.29 Other chronic pain; M54.9 Dorsalgia, unspecified; Z79.899 Other long term (current) drug therapy; Z96.651 Presence of right artificial knee joint; Z85.038 Personal history of other malignant neoplasm of large intestine; Z85.818 Personal history of malignant neoplasm of other sites of lip, oral cavity, and pharynx; Z88.8 Allergy status to other drugs, medicaments and biological substances; Z82.49 Family history of ischemic heart disease and other diseases of the circulatory system
CPT/HCPCS: 80048; 80053; 83735; 84100; 85025; 86850; 86900; 86901; 88304; 88307

== ENCOUNTER 2018-12-20 11:54 | Inpatient (IN) | payer MEDICARE ==
--- NOTE | 2018-12-20 12:29 | ED ---
Fall HPI - General Source: patient, EMS Mode of arrival: EMS Limitations: physical limitation <Zay Graves - Last Filed: 12/20/18 15:06> <Dean Rosado - Last Filed: 12/20/18 15:22> - General Chief Complaint: Fall Stated Complaint: Fall Time Seen by Provider: 12/20/18 12:11 - History of Present Illness Initial Comments: 78-year-old female presents emergency Department chief complaint trip and fall. Patient states she is in her laundry room tip of the ledge and fell onto her buttocks. Patient complains of pain in her pelvic region. She cannot localize the pain to the right or left hip. Patient denies any head injury no loss conscious or neck or back pain. Patient states she is able to pull her legs up to her abdomen region but states she has pain when she crosses over. Patient denies any paresthesias patient had a prior left hip fracture. Patient does not request any pain medications at this time. (Zay Graves) - Related Data Home Medications Medication Instructions Recorded Confirmed Losartan Potassium 100 mg PO QAM 05/15/18 12/20/18 Bisoprolol-Hctz 5-6.25 mg [Ziac 1 tab PO DAILY 09/25/18 12/20/18 5-6.25] Allergies Allergy/AdvReac Type Severity Reaction Status Date / Time ibuprofen Allergy Rash/Hives Verified 12/20/18 12:11 Review of Systems ROS Other: All systems not noted in ROS Statement are negative. <Zay Graves - Last Filed: 12/20/18 15:06> ROS Other: All systems not noted in ROS Statement are negative. <Dean Rosado - Last Filed: 12/20/18 15:22> ROS Statement: Those systems with pertinent positive or pertinent negative responses have been documented in the HPI. Past Medical History Past Medical History: Cancer, Hypertension Additional Past Medical History / Comment(s): colon tumor,SALIVARY GLAND CANCER RIGHT NECK,chronic back pain, ostomy placement, and reversal History of Any Multi-Drug Resistant Organisms: None Reported Past Surgical History: Joint Replacement, Orthopedic Surgery Additional Past Surgical History / Comment(s): LEFT HIP SCREWS, RIGHT ELBOW SCREWS, RIGHT KNEE REPLACEMENT Past Anesthesia/Blood Transfusion Reactions: No Reported Reaction Additional Past Anesthesia/Blood Transfusion Reaction / Comment(s): NO HX BLOOD TRANSFUSION Past Psychological History: No Psychological Hx Reported Smoking Status: Never smoker Past Alcohol Use History: Daily Past Drug Use History: None Reported - Past Family History Mother Additional Family Medical History / Comment(s): HEART DISEASE <Zay Graves - Last Filed: 12/20/18 15:06> General Exam Limitations: no limitations General appearance: alert, in no apparent distress Head exam: Present: atraumatic, normocephalic, normal inspection ENT exam: Present: normal exam, normal oropharynx, mucous membranes moist Neck exam: Present: normal inspection, full ROM. Absent: tenderness, meningismus, lymphadenopathy Respiratory exam: Present: normal lung sounds bilaterally Cardiovascular Exam: Present: regular rate, normal rhythm, normal heart sounds. Absent: systolic murmur, diastolic murmur, rubs, gallop, clicks Extremities exam: Present: other (Bilateral lower extremity neurovascular intact there is mild discomfort with abduction of both legs, no localized tenderness to the hips.) Back exam: Present: full ROM. Absent: tenderness, paraspinal tenderness, vertebral tenderness Neurological exam: Present: alert, oriented X3, CN II-XII intact, reflexes normal. Absent: motor sensory deficit Skin exam: Present: warm, dry, intact, normal color. Absent: rash <Zay Graves - Last Filed: 12/20/18 15:06> Course <Zay Graves - Last Filed: 12/20/18 15:06> <Dean Rosado - Last Filed: 12/20/18 15:22> Vital Signs 12/20/18 12/20/18 11:57 15:15 Temperature 97.8 F Pulse Rate 62 66 Respiratory 18 18 Rate Blood Pressure 127/86 121/86 O2 Sat by Pulse 99 96 Oximetry - Reevaluation(s) Reevaluation #1: 12/20/18 12:29 Patient offered pain medication on initial evaluation and patient declines. (Zay Graves) Reevaluation #2: 12/20/18 15:21 PA supervision: I proceeded [id number] evaluation the patient did discuss P ramyzer her and her family members. Patient did trip over a swiffer mop and fell. She did sustain a fracture of the right side pelvis minimal displacement. This is confirmed on CAT scan after questionable x-ray. Patient is unable weight- bear she will be requiring admission and likely rehab. I did discuss the case with Dr. Greer. I do agree with the assessment and plan. (Dean Rosado) Medical Decision Making <Zay Graves - Last Filed: 12/20/18 15:06> - Medical Decision Making 78-year-old female presented for a fall. CT, x-rays were obtained no acute fracture identified work by radiologist on x-ray CT was ordered shows superior pubic rami fracture. Patient unable to the bed weight and ambulate using a walker. Patient will be admitted for further evaluation possible rehab. (Zay Graves) Disposition <Zay Graves - Last Filed: 12/20/18 15:06> <Dean Rosado - Last Filed: 12/20/18 15:22> Clinical Impression: Fall, Fracture of superior pubic ramus Disposition: ADMITTED IP TO THIS HOSP Condition: Fair Referrals: Joao Greer MD [Primary Care Provider] - 1-2 days
--- NOTE | 2018-12-20 12:49 | XR ---
EXAMINATION TYPE: XR pelvis AP view DATE OF EXAM: 12/20/2018 COMPARISON: NONE HISTORY: Pain Postsurgical change left hip and there is diffuse osteopenia. Arthropathy of the right hip. Visualize d bowel gas pattern nonspecific. IMPRESSION: 1. 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
[2018-12-20] MEDS: HYDROcodone/APAP 5-325MG 1 EACH TAB PO STA ×2 (13:20→13:39)
--- NOTE | 2018-12-20 13:44 | CT ---
EXAMINATION TYPE: CT pelvis wo con DATE OF EXAM: 12/20/2018 COMPARISON: 12/20/2018 radiographs HISTORY: Bilateral hip pain. CT DLP: 309.1 mGycm Automated exposure control for dose reduction was used. FINDINGS: There is an impacted, transversely oriented minimally comminuted acute fracture of the right superior pubic ramus near the pubic symphysis with 2 mm displacement of the most distal fracture fragment. No sacroiliac joint space widening or pubic symphysis widening. Inferior pubic ramus is intact. Diffuse osseous demineralization is present. There is intramedullary sari and subtle medullary sari of the lef t femur. There is mild to moderate bilateral femoral acetabular arthropathy with marginal osteophytes and joint space narrowing. No acute fracture or dislocation is seen of the right hip. No lucency frida rounding the left hip surgical hardware to suggest loosening. There is malrotation of the left kidney with bilateral nonobstructing lower pole renal calculi measur ing 1.4 cm on the left and 3 mm on the right. Postsurgical changes of the bowel are noted. Evaluation of the visualized viscera are limited without contrast calcified injection granulomas are seen withi n the left gluteal soft tissues. There is atrophy of the paraspinal musculature. Compression deformit y of L5 and to a lesser degree at L4 are unchanged from the prior of 05/15/2018. IMPRESSION: 1. IMPACTED, MINIMALLY COMMINUTED, MINIMALLY DISPLACED FRACTURE OF THE SUPERIOR RIGHT PUBIC RAMUS JOEL R THE PUBIC SYMPHYSIS. THIS APPEARS RADIOGRAPHICALLY OCCULT. 2. BILATERAL NONOBSTRUCTING RENAL CALCULI. 3. 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
[2018-12-20] MEDS ORDERED: HYDROcodone/APAP 5-325MG 1 EACH TAB PO PRN (15:07)
[2018-12-20] MEDS ORDERED: NALOXONE 0.4 MG/ML 1 ML VIAL IV PRN (15:07)
[2018-12-20] MEDS: oxyCODONE-APAP 5-325MG 1 EACH TAB PO PRN ×2 (16:32→21:15)
[2018-12-21] MEDS: oxyCODONE-APAP 5-325MG 1 EACH TAB PO PRN ×3 (04:45→19:53)
--- NOTE | 2018-12-21 09:30 | P.CNOR ---
History of Present Illness - [facility] Consult date: 12/21/18 Consult reason: fracture (Right superior pubic rami) History of present illness: This is a 78 -year-old female who presented to the emergency Department chief complaint trip and fall. Patient states she was in her laundry room fell onto her buttocks. Patient complains of pain in her pelvic region. She localizes pain to her right groin area. Patient denies any head injury no loss conscious or neck or back pain. Patient denies any paresthesias. Patient had a prior left hip fracture several years ago. She is admitted to internal medicine. We're consulted for orthopedic evaluation. Past Medical History Past Medical History: Cancer, Hypertension Additional Past Medical History / Comment(s): colon tumor,SALIVARY GLAND CANCER RIGHT NECK,chronic back pain, ostomy placement, and reversal History of Any Multi-Drug Resistant Organisms: None Reported Past Surgical History: Joint Replacement, Orthopedic Surgery Additional Past Surgical History / Comment(s): LEFT HIP SCREWS, RIGHT ELBOW SCREWS, RIGHT KNEE REPLACEMENT Past Anesthesia/Blood Transfusion Reactions: No Reported Reaction Additional Past Anesthesia/Blood Transfusion Reaction / Comm: NO HX BLOOD TRANSFUSION Past Psychological History: No Psychological Hx Reported Smoking Status: Never smoker Past Alcohol Use History: Daily Additional Past Alcohol Use History / Comment(s): 1 glass of wine per day Past Drug Use History: None Reported - Past Family History Mother Additional Family Medical History / Comment(s): HEART DISEASE Medications and Allergies Home Medications Medication Instructions Recorded Confirmed Type Losartan Potassium 100 mg PO QAM 05/15/18 12/20/18 History Bisoprolol-Hctz 5-6.25 mg [Ziac 1 tab PO DAILY 09/25/18 12/20/18 History 5-6.25] Allergies Allergy/AdvReac Type Severity Reaction Status Date / Time ibuprofen Allergy Rash/Hives Verified 12/20/18 12:11 Physical Examination This is a pleasant 78-year-old female in no acute distress. She is alert and oriented 3. Exam of the head neck reveal no obvious deformity. She has full cervical spine motion without difficulty or pain. No pain on palpation about cervical spine or paraspinal musculature. Exam of the upper extremities is unremarkable. She has full shoulder, elbow, wrist and finger motion bilaterally. Neurovascular status the upper extremities is intact. Exam of the lumbar spine and pelvis reveals mild pain with compression of the pelvis. There is pain with palpation about the right pelvic area. She is able to lift each leg off the bed independently with pain. Exam of the lower extremities reveals no obvious deformity. No shortening or rotational deformity noted. She can lift each leg and flex at the knee without difficulty. Mild pain with motion to the right hip. Full foot and ankle motion bilaterally. Neurovascular status to the lower extremities is intact. Results Computed tomography scan of the pelvis reveals a slightly comminuted, minimally displaced fracture of the superior rami on the right. The SI joint appears to be intact. No other fractures identified. Assessment and Plan (1) Fall Current Visit: Yes Status: Acute Code(s): W19.XXXA - UNSPECIFIED FALL, INITIAL ENCOUNTER SNOMED Code(s): 4541595 (2) Fracture of superior pubic ramus Current Visit: Yes Status: Acute Code(s): S32.519A - FRACTURE OF SUPERIOR RIM OF UNSP PUBIS, INIT FOR CLOS FX SNOMED Code(s): 103442674 Plan: The clinical and computed tomography scan findings are discussed the patient. The natural history of this fracture is discussed. She may be up with physical therapy and may be weightbearing as tolerated with walker. She may require inpatient rehab after discharge. I will consult physical therapy and occupational therapy for evaluation.
[2018-12-21 15:24] VITALS: BMI 18.1
--- NOTE | 2018-12-21 15:29 | P.HPIM ---
History of Present Illness Patient is pleasant 70-year-old female came in for superior pubic rami fracture. Orthopedic surgery evaluated the patient patient had a mechanical fall. Patient had another mechanical fall in the past. Patient was a valid in the past for mechanical falls and she believes she will need a bone densitometry and patient probably will also need vitamin D and the calcium supplementation which she'll discuss with Dr. Greer. Patient does have some middle ear problems and she believes that is contributing to some of her falls doesn't have any vision problems. Patient does have some generalized weakness although has been exercising . Patient pain is better controlled patient is on couple antidepressive medications without which her blood pressure is fairly stable will continue to hold and monitor the blood pressure. Review of Systems REVIEW OF SYSTEMS: CONSTITUTIONAL: No fever, no malaise, no fatigue. HEENT: No recent visual problems or hearing problems. Denied any sore throat. CARDIOVASCULAR: No chest pain, orthopnea, PND, no palpitations, no syncope. PULMONARY: No shortness of breath, no cough, no hemoptysis. GASTROINTESTINAL: No diarrhea, no nausea, no vomiting, no abdominal pain. NEUROLOGICAL: No headaches, no weakness, no numbness. HEMATOLOGICAL: Denies any bleeding or petechiae. GENITOURINARY: Denies any burning micturition, frequency, or urgency. MUSCULOSKELETAL/RHEUMATOLOGICAL: As mentioned in HPI ENDOCRINE: Denies any polyuria or polydipsia. The rest of the 14-point review of systems is negative. Past Medical History Past Medical History: Cancer, Hypertension Additional Past Medical History / Comment(s): colon tumor,SALIVARY GLAND CANCER RIGHT NECK,chronic back pain, ostomy placement, and reversal History of Any Multi-Drug Resistant Organisms: None Reported Past Surgical History: Joint Replacement, Orthopedic Surgery Additional Past Surgical History / Comment(s): LEFT HIP SCREWS, RIGHT ELBOW SCREWS, RIGHT KNEE REPLACEMENT Past Anesthesia/Blood Transfusion Reactions: No Reported Reaction Additional Past Anesthesia/Blood Transfusion Reaction / Comment(s): NO HX BLOOD TRANSFUSION Past Psychological History: No Psychological Hx Reported Smoking Status: Never smoker Past Alcohol Use History: Daily Additional Past Alcohol Use History / Comment(s): 1 glass of wine per day Past Drug Use History: None Reported - Past Family History Mother Additional Family Medical History / Comment(s): HEART DISEASE Medications and Allergies Home Medications Medication Instructions Recorded Confirmed Type Losartan Potassium 100 mg PO QAM 05/15/18 12/20/18 History Bisoprolol-Hctz 5-6.25 mg [Ziac 1 tab PO DAILY 09/25/18 12/20/18 History 5-6.25] Allergies Allergy/AdvReac Type Severity Reaction Status Date / Time ibuprofen Allergy Rash/Hives Verified 12/20/18 12:11 Physical Exam Vitals: Vital Signs Temp Pulse Resp BP Pulse Ox 12/21/18 15:03 98.1 F 82 126/80 96 12/21/18 07:20 97.6 F 82 123/78 97 12/21/18 00:17 97.9 F 66 16 113/74 97 12/20/18 19:45 98.0 F 60 14 124/79 96 12/20/18 16:30 98.2 F 62 16 115/76 97 Intake and Output 12/21/18 12/21/18 12/21/18 06:59 14:59 22:59 Intake Total 150 Balance 150 Intake: Oral 150 Other: # Voids 1 Weight 49.442 kg PHYSICAL EXAMINATION: GENERAL: The patient is alert and oriented x3, not in any acute distress. Well developed, well nourished. HEENT: Pupils are round and equally reacting to light. EOMI. No scleral icterus. No conjunctival pallor. Normocephalic, atraumatic. No pharyngeal erythema. No thyromegaly. CARDIOVASCULAR: S1 and S2 present. No murmurs, rubs, or gallops. PULMONARY: Chest is clear to auscultation, no wheezing or crackles. ABDOMEN: Soft, nontender, nondistended, normoactive bowel sounds. No palpable organomegaly. MUSCULOSKELETAL: Deferred to orthopedic surgery EXTREMITIES: No cyanosis, clubbing, or pedal edema. NEUROLOGICAL: Gross neurological examination did not reveal any focal deficits. SKIN: No rashes. Thrombosis Risk Factor Assmnt - Choose All That Apply Any of the Below Risk Factors Present?: No Each Risk Factor Represents 3 Points: Age 75 years or older Thrombosis Risk Factor Assessment Total Risk Factor Score: 3 Thrombosis Risk Factor Assessment Level: Moderate Risk Assessment and Plan Plan: -Superior pubic ramus fracture: Management as per orthopedic surgery patient pain is better controlled did well with physical therapy today, patient will be evaluated for rehab placement -Multiple mechanical falls: Probably secondary to generalized deconditioning denied any syncopal episodes further workup as an outpatient. Patient will benefit from bone densitometry vitamin D and calcium supplementation. -Hypertension as mentioned above, to hold and if his medications blood pressure is fairly doing well without these medications hopefully she'll not require his medications -Colon cancer in remission
[2018-12-21] MEDS: HEPARIN SODIUM,PORCINE 5,000 UNIT/ML 1 ML VIAL SQ SCH (21:42)
[2018-12-22] MEDS: HEPARIN SODIUM,PORCINE 5,000 UNIT/ML 1 ML VIAL SQ SCH ×2 (08:54→20:04)
--- NOTE | 2018-12-22 12:10 | P.PN ---
Subjective Progress Note Date: 12/22/18 Principal diagnosis: Pubic rami fracture right. This is a 70-year-old female who we are following regarding her pubic rami fracture. She is doing well from an orthopedic standpoint. She is sitting up in chair today. She has no new complaints or concerns. Vital signs are stable. Objective - Vital Signs Vital signs: Vital Signs Temp 98.0 F 12/22/18 07:26 Pulse 83 12/22/18 07:26 Resp 18 12/22/18 03:21 BP 129/86 12/22/18 07:26 Pulse Ox 95 12/22/18 07:26 Intake & Output 12/21/18 12/22/18 12/22/18 17:59 06:59 18:59 Intake Total Balance Weight Intake: Oral Other: Voiding Method # Voids # Bowel Movements - Exam This is a pleasant 70-year-old female in no acute distress. She is alert and oriented 3. She is sitting up in a chair and appears to be fairly comfortable. She is able lift each leg off the chair independently. She has full foot and ankle motion bilaterally. Neurovascular status to the lower extremities is intact. Assessment and Plan (1) Fall Current Visit: Yes Status: Acute Code(s): W19.XXXA - UNSPECIFIED FALL, INITIAL ENCOUNTER SNOMED Code(s): 7917156 (2) Fracture of superior pubic ramus Current Visit: Yes Status: Acute Code(s): S32.519A - FRACTURE OF SUPERIOR RIM OF UNSP PUBIS, INIT FOR CLOS FX SNOMED Code(s): 654686053 Plan: The clinical and computed tomography scan findings are discussed the patient. The natural history of this fracture is discussed. She may be up with physical therapy and may be weightbearing as tolerated with walker. The patient is hoping to be discharged to home tomorrow. We discussed the possibility of inpatient rehab. Patient states she would rather go home. We will see how she does with physical therapy.
--- NOTE | 2018-12-22 12:12 | P.PN ---
Subjective Patient is admitted for pubic rami fracture clinically doing well patient probably can be discharged to home with home care tomorrow. Pain is well-c ontrolled Constitutional: Denied any fatigue denied any fever. Cardio vascular: denied any chest pain, palpitations Gastrointestinal denied any nausea vomiting Pulmonary: Denied any shortness of breath cough Neurologic denied any new focal deficits All inpatient medications were reviewed and appropriate changes in these medications as dictated in the interval history and assessment and plan. Objective - Vital Signs Vital signs: Vital Signs Temp 98.0 F 12/22/18 07:26 Pulse 83 12/22/18 07:26 Resp 18 12/22/18 03:21 BP 129/86 12/22/18 07:26 Pulse Ox 95 12/22/18 07:26 Intake & Output 12/21/18 12/22/18 12/22/18 17:59 06:59 18:59 Intake Total Balance Weight Intake: Oral Other: Voiding Method # Voids # Bowel Movements - Exam PHYSICAL EXAMINATION: GENERAL: The patient is alert and oriented x3, not in any acute distress. Well developed, well nourished. HEENT: Pupils are round and equally reacting to light. EOMI. No scleral icterus. No conjunctival pallor. Normocephalic, atraumatic. No pharyngeal erythema. No thyromegaly. CARDIOVASCULAR: S1 and S2 present. No murmurs, rubs, or gallops. PULMONARY: Chest is clear to auscultation, no wheezing or crackles. ABDOMEN: Soft, nontender, nondistended, normoactive bowel sounds. No palpable organomegaly. MUSCULOSKELETAL: Deferred to orthopedic surgery EXTREMITIES: No cyanosis, clubbing, or pedal edema. NEUROLOGICAL: Gross neurological examination did not reveal any focal deficits. SKIN: No rashes. Assessment and Plan Plan: -Superior pubic ramus fracture: Management as per orthopedic surgery patient pain is better controlled did well with physical therapy today, patient doesn't want to go to subacute rehab instead wanted to get physical therapy at home -Multiple mechanical falls: Probably secondary to generalized deconditioning denied any syncopal episodes further workup as an outpatient. Patient will benefit from bone densitometry vitamin D and calcium supplementation. -Hypertension as mentioned above, to hold and if his medications blood pressure is fairly doing well without these medications hopefully she'll not require antihypertensive medications -Colon cancer in remission
[2018-12-22] MEDS: oxyCODONE-APAP 5-325MG 1 EACH TAB PO PRN ×2 (16:08→20:04)
[2018-12-23 00:49] VITALS: RESP 16
[2018-12-23 07:44] VITALS: BP 166/94; PULSE 86; TEMP 98
--- NOTE | 2018-12-23 07:56 | P.DS ---
Providers Date of admission: 12/20/18 15:21 Attending physician: Joao Greer Consults: 12/20/18 15:07 Consult Physician Urgent Consulting Provider: Roldan Pavon Consult Reason/Comments: Superior pubic rami fracture Do you want consulting provider notified?: Yes Primary care physician: Joao Greer Hospital Course: This is a discharge summary 78-year-old white female essentially admitted for pelvic fracture after fall. Superior pubic rami fracture is noted. She's been doing quite well and increase ambulation. The patient will be continued with rehab. Question need for inpatient rehab versus home health physical therapy. The patient is somewhat reluctant to go to acute rehab secondary to her special needs son at home. Increase in relation on discharge of possible otherwise we will transfer to ECF. Patient Condition at Discharge: Fair Plan - Discharge Summary New Discharge Prescriptions: New oxyCODONE-APAP 5-325MG [Percocet 5-325 mg] 1 each PO Q6HR PRN #120 tab PRN Reason: Severe Pain Continue Losartan Potassium 100 mg PO QAM Bisoprolol-Hctz 5-6.25 mg [Ziac 5-6.25 MG] 1 tab PO DAILY Discharge Medication List Losartan Potassium 100 mg PO QAM 05/15/18 [History] Bisoprolol-Hctz 5-6.25 mg [Ziac 5-6.25 MG] 1 tab PO DAILY 09/25/18 [History] oxyCODONE-APAP 5-325MG [Percocet 5-325 mg] 1 each PO Q6HR PRN #120 tab 12/23/18 [Rx] Follow up Appointment(s)/Referral(s): Joao Greer MD [Primary Care Provider] - 1-2 days Discharge Disposition: TRANSFER TO SNF/ECF
[2018-12-23] MEDS: oxyCODONE-APAP 5-325MG 1 EACH TAB PO PRN (09:15)
[2018-12-23] MEDS: HEPARIN SODIUM,PORCINE 5,000 UNIT/ML 1 ML VIAL SQ SCH (09:15)
== END 2018-12-23 14:46 | disposition home health service (06) | DRG 536 ==
LOC: EC 11:54 → 4SSUR 15:21
PROVIDERS: ADMIT Family Medicine; ATTEND Family Medicine
DX: S32.591A Other specified fracture of right pubis, initial encounter for closed fracture (principal); I10 Essential (primary) hypertension; G89.29 Other chronic pain; M54.9 Dorsalgia, unspecified; Z85.818 Personal history of malignant neoplasm of other sites of lip, oral cavity, and pharynx; Z96.651 Presence of right artificial knee joint; Z79.899 Other long term (current) drug therapy; Z88.1 Allergy status to other antibiotic agents; W01.0XXA Fall on same level from slipping, tripping and stumbling without subsequent striking against object, initial encounter
CPT/HCPCS: 72170; 72192; 99285

== ENCOUNTER → 2019-01-27 | Outpatient (CLI) | payer MEDICARE ==
--- NOTE | 2019-01-27 18:53 | BD ---
EXAMINATION TYPE: Axial Bone Density DATE OF EXAM: 01/27/2019 COMPARISON: NONE CLINICAL HISTORY: 78-year-old female disorder of bone Height: 63.7 IN Weight: 107 LBS FRAX RISK QUESTIONS: History of Fracture in Adulthood: LT HIP FX AGE 57; RT KNEE AGE 60; LT KNEE AGE 61; RT ELBOW AGE [age]; FX PELVIS AND COCCYX AGE 78 RISK FACTORS HISTORY OF: Hip Fracture (LT): AGE 57 When: AGE 57 Surgery to Hip(LEFT) YES When: AGE 57 Active: MODERATE Diet low in dairy products/other sources of calcium: YES Postmenopausal woman: AGE 58 Lost more than 2 inches in height since high school: YES 4" MEDICATIONS: Additional Medications: CENTRUM SILVER, BLOOD PRESSURE MEDS, Additional History: PT STATES SHE HAD NECK/GLAND CANCER AGE 60 EXAM MEASUREMENTS: Bone mineral densitometry was performed using the [employer] ([employer]) System. Bone mineral density as measured about the Lumbar spine is: ----- L1-L4(G/cm2): 0.656 T Score Values are as follows: ----- L2: -5.1 ----- L3: -4.0 ----- L4: -3.3 ----- L1-L4: -4.4 Bone mineral density BASELINE Bone mineral density about the R hip (g/cm2): 0.428 T Score values are as follows: -----R Neck: -4.4 -----R Total: -4.1 Bone mineral density BASELINE IMPRESSION: Osteoporosis (T Score less than -2.5). There is increased fracture risk and therapy is usually indicated based on age. Re-Screen 1-2 years. NOTE: T-SCORE=SD OF THE YOUNG ADULT MEAN.
== END | disposition home or self-care (01) ==
LOC: RADBDWWP 14:14
PROVIDERS: ATTEND Family Medicine
DX: M81.0 Age-related osteoporosis without current pathological fracture (principal)
CPT/HCPCS: 77080

== ENCOUNTER 2019-05-07 05:16 | Inpatient (IN) | payer MEDICARE ==
--- NOTE | 2019-05-07 05:35 | ED ---
SOB HPI - General Chief Complaint: Shortness of Breath Stated Complaint: ALEXANDER Time Seen by Provider: 05/07/19 05:31 Source: patient, EMS Mode of arrival: EMS Limitations: no limitations - History of Present Illness Initial Comments: Chyna is a pleasant 78-year-old female who presents to the emergency department today via ambulance for evaluation of shortness of breath. Patient denies any history of pulmonary disease. Patient states that approximately 2 weeks ago she had a ureteral stent placed due to a kidney stone. She states that she was given an incentive spirometer to help her breathing. Patient states that she's been using that regularly. She also states that she recently traveled to [place] to visit her daughter, traveled via car with her daughter, she states he made multiple stops each direction and got out and walked around. Patient states that since returning from [place] she's noticed progressively worsening shortness of breath. Patient reports she feels short of breath all the time, this morning she was feeling very short of breath and EMS was contacted. They arrived on scene to find her with an oxygen saturation of only 92%, she is placed on 2 L vaccination quickly increased to the high 90s she reported complete resolution of her symptoms with that. Patient denies any chest pain or palpitations, she does note that her feet seem more swollen than usual. She is not on any water pills. - Related Data Home Medications Medication Instructions Recorded Confirmed Losartan Potassium 100 mg PO QAM 05/15/18 05/07/19 Bisoprolol-Hctz 5-6.25 mg [Ziac 1 tab PO DAILY 09/25/18 05/07/19 5-6.25 MG] Amoxic-Pot Clav 875-125Mg 1 tab PO Q12HR 05/07/19 05/07/19 [Augmentin 875-125] Allergies Allergy/AdvReac Type Severity Reaction Status Date / Time ibuprofen Allergy Rash/Hives Verified 05/07/19 07:33 Review of Systems ROS Statement: Those systems with pertinent positive or pertinent negative responses have been documented in the HPI. ROS Other: All systems not noted in ROS Statement are negative. Past Medical History Past Medical History: Cancer, Hypertension Additional Past Medical History / Comment(s): colon tumor,SALIVARY GLAND CANCER RIGHT NECK,chronic back pain, History of Any Multi-Drug Resistant Organisms: None Reported Past Surgical History: Joint Replacement, Orthopedic Surgery Additional Past Surgical History / Comment(s): LEFT HIP SCREWS, RIGHT ELBOW SCREWS, RIGHT KNEE REPLACEMENT, kidney stent placement,ostomy placement, and reversal, Past Anesthesia/Blood Transfusion Reactions: No Reported Reaction Additional Past Anesthesia/Blood Transfusion Reaction / Comment(s): NO HX BLOOD TRANSFUSION Past Psychological History: No Psychological Hx Reported Smoking Status: Never smoker Past Alcohol Use History: Daily Past Drug Use History: None Reported - Past Family History Mother Additional Family Medical History / Comment(s): HEART DISEASE General Exam - General Exam Comments Initial Comments: Physical Exam GENERAL: Chronically ill-appearing elderly female HENT: Normocephalic, Atraumatic. EYES: PERRL, EOMI PULMONARY: Unlabored respirations. No audible rales rhonchi or wheezing was noted. CARDIOVASCULAR: There is a regular rate and rhythm without any murmurs gallops or rubs. ABDOMEN: Soft and nontender with normal bowel sounds. SKIN: Skin is clear with no lesions or rashes and otherwise unremarkable. : Deferred NEUROLOGIC: Patient is alert and oriented x3. Moving all extremities spontaneously MUSCULOSKELETAL: Normal extremities with adequate strength and full range of motion. No lower extremity swelling or edema. No calf tenderness. PSYCHIATRIC: Very anxious Limitations: no limitations Course Vital Signs 05/07/19 05/07/19 05/07/19 05:17 05:24 05:30 Temperature 98.4 F Pulse Rate 93 Respiratory 18 Rate Blood Pressure 150/103 150/103 O2 Sat by Pulse 95 94 L 94 L Oximetry 05/07/19 05/07/19 05/07/19 05:39 05:40 05:50 Temperature Pulse Rate 87 Respiratory 21 Rate Blood Pressure 136/100 136/100 136/100 O2 Sat by Pulse 96 95 Oximetry 05/07/19 05/07/19 05/07/19 06:00 06:10 06:20 Temperature Pulse Rate 90 98 100 Respiratory 41 H 25 H 26 H Rate Blood Pressure 136/100 138/100 138/100 O2 Sat by Pulse 96 93 L 95 Oximetry 05/07/19 05/07/19 05/07/19 06:30 06:40 07:32 Temperature Pulse Rate 82 81 81 Respiratory 20 23 24 Rate Blood Pressure 138/100 143/94 139/94 O2 Sat by Pulse 94 L 95 95 Oximetry Medical Decision Making - Medical Decision Making The patient was seen and evaluated upon arrival in the emergency department Patient is very anxious, though she reports she is feeling better from EMS arrival this and patient reports that her symptoms have resolved since having oxygen applied, however it's noted that the patient is wearing a nasal cannula it is not sure at the time and she still feels better Is very anxious that she has not taken her morning medications yet, she also states that she has not yet taken her 7 AM antibiotic - I advised the patient she can take her home oral antihypertensives here and her antibiotic, it's only 6 exam so she would like to wait one hour to take her antibiotic is is due at 7 AM Labs and imaging were ordered Labs and imaging results with elevated d-dimer, mildly elevated troponin CT pulmonary embolism study was ordered and resulted with no signs of pulmonary embolus him however is concerning for CHF which is consistent with the laboratory studies this is new diagnosis for the patient Ordered Patient is remained hemodynamically stable without signs of hypoxia throughout her stay however do feel she needs to be admitted to the hospital for further evaluation including an echocardiogram and evaluation by cardiology. Patient is agreeable to this. Patient care was discussed with her primary care physician Dr. Greer who accepts admission. - Lab Data Result diagrams: 05/07/19 05:31 05/07/19 05:31 Lab Results 05/07/19 05/07/19 05/07/19 Range/Units 05:31 05:31 05:31 WBC 10.6 (3.8-10.6) k/uL RBC 4.09 (3.80-5.40) m/uL Hgb 12.1 (11.4-16.0) gm/dL Hct 38.1 (34.0-46.0) % MCV 93.2 (80.0-100.0) fL MCH 29.7 (25.0-35.0) pg MCHC 31.8 (31.0-37.0) g/dL RDW 14.1 (11.5-15.5) % Plt Count 398 (150-450) k/uL Neutrophils % 76 % Lymphocytes % 15 % Monocytes % 5 % Eosinophils % 1 % Basophils % 1 % Neutrophils # 8.1 H (1.3-7.7) k/uL Lymphocytes # 1.6 (1.0-4.8) k/uL Monocytes # 0.5 (0-1.0) k/uL Eosinophils # 0.2 (0-0.7) k/uL Basophils # 0.1 (0-0.2) k/uL PT 10.4 (9.0-12.0) sec INR 1.0 (<1.2) APTT 22.4 (22.0-30.0) sec D-Dimer 3.17 H (<0.60) mg/L FEU Sodium 140 (137-145) mmol/L Potassium 3.5 (3.5-5.1) mmol/L Chloride 109 H (98-107) mmol/L Carbon Dioxide 20 L (22-30) mmol/L Anion Gap 11 mmol/L BUN 21 H (7-17) mg/dL Creatinine 0.72 (0.52-1.04) mg/dL Est GFR (CKD-EPI)AfAm >90 (>60 ml/min/1.73 sqM) Est GFR (CKD-EPI)NonAf 81 (>60 ml/min/1.73 sqM) Glucose 131 H (74-99) mg/dL Calcium 8.8 (8.4-10.2) mg/dL Total Bilirubin 0.7 (0.2-1.3) mg/dL AST 31 (14-36) U/L ALT 37 (9-52) U/L Alkaline Phosphatase 75 (38-126) U/L Troponin I (0.000-0.034) ng/mL NT-Pro-B Natriuret Pep pg/mL Total Protein 6.2 L (6.3-8.2) g/dL Albumin 3.3 L (3.5-5.0) g/dL 05/07/19 05/07/19 Range/Units 05:31 05:31 WBC (3.8-10.6) k/uL RBC (3.80-5.40) m/uL Hgb (11.4-16.0) gm/dL Hct (34.0-46.0) % MCV (80.0-100.0) fL MCH (25.0-35.0) pg MCHC (31.0-37.0) g/dL RDW (11.5-15.5) % Plt Count (150-450) k/uL Neutrophils % % Lymphocytes % % Monocytes % % Eosinophils % % Basophils % % Neutrophils # (1.3-7.7) k/uL Lymphocytes # (1.0-4.8) k/uL Monocytes # (0-1.0) k/uL Eosinophils # (0-0.7) k/uL Basophils # (0-0.2) k/uL PT (9.0-12.0) sec INR (<1.2) APTT (22.0-30.0) sec D-Dimer (<0.60) mg/L FEU Sodium (137-145) mmol/L Potassium (3.5-5.1) mmol/L Chloride (98-107) mmol/L Carbon Dioxide (22-30) mmol/L Anion Gap mmol/L BUN (7-17) mg/dL Creatinine (0.52-1.04) mg/dL Est GFR (CKD-EPI)AfAm (>60 ml/min/1.73 sqM) Est GFR (CKD-EPI)NonAf (>60 ml/min/1.73 sqM) Glucose (74-99) mg/dL Calcium (8.4-10.2) mg/dL Total Bilirubin (0.2-1.3) mg/dL AST (14-36) U/L ALT (9-52) U/L Alkaline Phosphatase (38-126) U/L Troponin I 0.042 H* (0.000-0.034) ng/mL NT-Pro-B Natriuret Pep 8110 pg/mL Total Protein (6.3-8.2) g/dL Albumin (3.5-5.0) g/dL - EKG Data -: EKG Interpreted by Me EKG Comments: An EKG was obtained due to the complaint of shortness of breath, EKG was obta ined at 5:42 AM, rate is 85 for them is sinus there is normal axis, AR is prolonged at 204, QRS 94, QTC is prolonged at 428 there are no acute ST elevations or depressions no evidence of acute ischemia or infarction. Disposition Clinical Impression: Congestive heart failure Disposition: ADMITTED IP TO THIS HOSP Condition: Stable Referrals: Joao Greer MD [Primary Care Provider] - 1-2 days
[2019-05-07 05:45] LABS: Basophils # (A) 0.1 k/uL (0-0.2); Basophils % (A) 1 %; Eosinophils # (A) 0.2 k/uL (0-0.7); Eosinophils % (A) 1 %; HCT 38.1 % (34.0-46.0); HGB 12.1 gm/dL (11.4-16.0); Lymphocytes # (A) 1.6 k/uL (1.0-4.8); Lymphocytes % (A) 15 %; MCH 29.7 pg (25.0-35.0); MCHC 31.8 g/dL (31.0-37.0); MCV 93.2 fL (80.0-100.0); Mean Platelet Volume 6.9; Monocytes # (A) 0.5 k/uL (0-1.0); Monocytes % (A) 5 %; Neutrophils # (A) 8.1 k/uL (1.3-7.7); Neutrophils % (A) 76 %; Platelet Count 398 k/uL (150-450); RBC 4.09 m/uL (3.80-5.40); RDW 14.1 % (11.5-15.5); WBC 10.6 k/uL (3.8-10.6)
[2019-05-07 05:55] LABS: ALT 37 U/L (9-52); AST 31 U/L (14-36); African American GFR (CKD) >90 (>60 ml/min/1.73 sqM); Albumin 3.3 g/dL (3.5-5.0); Alkaline Phosphatase 75 U/L (38-126); Anion Gap 11 mmol/L; Blood Urea Nitrogen 21 mg/dL (7-17); Calcium 8.8 mg/dL (8.4-10.2); Carbon Dioxide 20 mmol/L (22-30); Chloride 109 mmol/L (98-107); Glucose 131 mg/dL (74-99); Non-African American GFR(CKD) 81 (>60 ml/min/1.73 sqM); Potassium 3.5 mmol/L (3.5-5.1); Sodium 140 mmol/L (137-145); Total Bilirubin 0.7 mg/dL (0.2-1.3); Total Protein 6.2 g/dL (6.3-8.2)
--- NOTE | 2019-05-07 06:01 | XR ---
EXAM: XR Chest, 2 Views CLINICAL HISTORY: ITS.REASON XR Reason: difficulty breathing TECHNIQUE: Frontal and lateral views of the chest. COMPARISON: 06/20/16 IMPRESSION: Normal heart size. Tortuous aorta. Pulmonary edema. Mild bilateral loculated pleural effusions.
[2019-05-07 06:02] LABS: Partial Thromboplastin Time 22.4 sec (22.0-30.0); Prothrombin Time 10.4 sec (9.0-12.0)
[2019-05-07 06:13] LABS: D-Dimer 3.17 mg/L FEU (<0.60)
--- NOTE | 2019-05-07 07:32 | CT ---
EXAMINATION TYPE: CT chest angio for PE DATE OF EXAM: 05/07/2019 COMPARISON: CT chest March 02, 2014 . Chest x-ray earlier today HISTORY: SOB CT DLP: 217.6 mGycm. Automated Exposure Control for Dose Reduction was Utilized. CONTRAST: CTA scan of the thorax is performed with IV Contrast, patient injected with 67 mL of Isovue 370, pulm onary embolism protocol. MIP Images are created on CT scanner and reviewed. FINDINGS: LUNGS: There are new small to moderate sized bilateral pleural effusions with associated bibasilar co mpressive atelectasis and/or consolidation. There is additional atelectasis and/or consolidation in t he dependent portion of the lingula. There is some central groundglass opacity in the right lower lob e favoring alveolar edema. MEDIASTINUM: There is satisfactory enhancement of the pulmonary artery and its branches, there is no CT evidence for pulmonary embolism. There are no greater than 1 cm hilar or mediastinal lymph nodes. No pericardial effusion is seen. New cardiomegaly is noted OTHER: Osseous structures are demineralized. S-shaped scoliosis is present. Moderate chronic compress ion type fracture noted T12 level. IMPRESSION: 1. No CT evidence for acute pulmonary embolism. 2. Strongly favor CHF exacerbation and there is new cardiomegaly with small to moderate-sized bilater al pleural effusions and areas of mild alveolar and interstitial edema felt present. Correlate clinic ally. Compressive atelectasis is felt present bilaterally.
[2019-05-07] MEDS ORDERED: FUROSEMIDE 10 MG/ML 4 ML VIAL IV ONE (07:45)
--- NOTE | 2019-05-07 11:36 | ECHOF ---
Referral Reason:Heart Failure - new MEASUREMENTS -------- HEIGHT: 160.0 cm WEIGHT: 54.4 kg BP: 139/94 RVIDd: 2.9 cm (< 3.3) IVSd: 1.3 cm (0.6 - 1.1) LVIDd: 3.4 cm (3.9 - 5.3) LVPWd: 1.3 cm (0.6 - 1.1) IVSs: 1.8 cm LVIDs: 3.3 cm LVPWs: 1.5 cm LA Diam: 3.4 cm (2.7 - 3.8) LAESV Index (A-L): 30.16 ml/m Ao Diam: 2.9 cm (2.0 - 3.7) AV Cusp: 1.9 cm (1.5 - 2.6) MV EXCURSION: 14.881 mm (> 18.000) MV EF SLOPE: 83 mm/s (70 - 150) EPSS: 0.3 cm MV E Wei: 0.51 m/s MV DecT: 166 ms MV A Wei: 0.74 m/s MV E/A Ratio: 0.69 AR PHT: 356 ms RAP: 5.00 mmHg RVSP: 36.49 mmHg FINDINGS -------- Sinus rhythm. This was a technically good study. The left ventricular size is normal. There is mild concentric left ventricular hypertrophy. Overa ll left ventricular systolic function is mild-moderately impaired with, an EF between 40 - 45 %. Ba bradley inferoseptal LV wall motion is hypokinetic. Mid anterior LV wall motion is hypokinetic. Api emigdio anterior LV wall motion is hypokinetic. Apical septum LV wall motion is hypokinetic. The right ventricle is normal in size. LA is midly dilated 29-33ml/m2. The right atrium is normal in size. Interatrial and interventricular septum intact. There is mild aortic valve sclerosis. There is moderate aortic regurgitation. The mitral valve leaflets are mildly thickened. Mild mitral annular calcification present. Mild m itral regurgitation is present. Mild tricuspid regurgitation present. There is mild pulmonary hypertension. The right ventricular systolic pressure, as measured by Doppler, is 36.49mmHg. Trace/mild (physiologic) pulmonic regurgitation. The aortic root size is normal. Normal inferior vena cava with normal inspiratory collapse consistent with estimated right atrial pre ssure of 5 mmHg. There is a trivial pericardial effusion present. CONCLUSIONS -------- 1. Sinus rhythm. 2. This was a technically good study. 3. The left ventricular size is normal. 4. There is mild concentric left ventricular hypertrophy. 5. Overall left ventricular systolic function is mild-moderately impaired with, an EF between 40 - 45 %. 6. Basal inferoseptal LV wall motion is hypokinetic. 7. Mid anterior LV wall motion is hypokinetic. 8. Apical anterior LV wall motion is hypokinetic. 9. Apical septum LV wall motion is hypokinetic. 10. The right ventricle is normal in size. 11. LA is midly dilated 29-33ml/m2. 12. The right atrium is normal in size. 13. Interatrial and interventricular septum intact. 14. There is mild aortic valve sclerosis. 15. There is moderate aortic regurgitation. 16. The mitral valve leaflets are mildly thickened. 17. Mild mitral annular calcification present. 18. Mild mitral regurgitation is present. 19. Mild tricuspid regurgitation present. 20. There is mild pulmonary hypertension. 21. The right ventricular systolic pressure, as measured by Doppler, is 36.49mmHg. 22. Trace/mild (physiologic) pulmonic regurgitation. 23. The aortic root size is normal. 24. Normal inferior vena cava with normal inspiratory collapse consistent with estimated right atrial pressure of 5 mmHg. 25. There is a trivial pericardial effusion present. HUNTER GUIDE: Lucy Graff RDCS
[2019-05-07 15:14] VITALS: BMI 21.2
[2019-05-07] MEDS: FUROSEMIDE 10 MG/ML 4 ML VIAL IV SCH (18:33)
[2019-05-07] MEDS ORDERED: HEPARIN SODIUM,PORCINE 5,000 UNIT/ML 1 ML VIAL IV ONE (20:41)
[2019-05-07] MEDS ORDERED: HEPARIN SODIUM,PORCINE 5,000 UNIT/ML 1 ML VIAL IV PRN (20:41)
[2019-05-07] MEDS ORDERED: HEPARIN SOD,PORK IN 0.45% NACL 25,000 UNIT in 0.45% NACL 1 250ML.BAG IV SCH (20:45)
[2019-05-07 23:31] LABS: Partial Thromboplastin Time 27.8 sec (22.0-30.0); Prothrombin Time 10.4 sec (9.0-12.0)
[2019-05-08] MEDS: FUROSEMIDE 10 MG/ML 4 ML VIAL IV SCH ×2 (05:09→17:31)
[2019-05-08 08:03] LABS: Basophils # (A) 0.1 k/uL (0-0.2); Basophils % (A) 1 %; Eosinophils # (A) 0.2 k/uL (0-0.7); Eosinophils % (A) 2 %; HCT 36.9 % (34.0-46.0); Lymphocytes # (A) 1.4 k/uL (1.0-4.8); Lymphocytes % (A) 14 %; MCH 30.6 pg (25.0-35.0); MCHC 32.6 g/dL (31.0-37.0); MCV 94.1 fL (80.0-100.0); Monocytes # (A) 0.4 k/uL (0-1.0); Monocytes % (A) 4 %; Neutrophils # (A) 7.6 k/uL (1.3-7.7); Neutrophils % (A) 77 %; Platelet Count 428 k/uL (150-450); RBC 3.92 m/uL (3.80-5.40); RDW 14.8 % (11.5-15.5); WBC 9.9 k/uL (3.8-10.6)
[2019-05-08] MEDS ORDERED: METOPROLOL SUCCINATE (ER) 25 MG TAB.ER.24H PO STA (08:24)
[2019-05-08 08:40] LABS: Cholesterol 175 mg/dL (<200); HDL Cholesterol 30 mg/dL (40-60); LDL Cholesterol,Calculated 127 mg/dL (0-99); Triglycerides 90 mg/dL (<150)
[2019-05-08] MEDS: ASPIRIN 81 MG PO SCH (08:41)
[2019-05-08] MEDS: LOSARTAN 50 MG TAB PO SCH (08:41)
[2019-05-08 08:56] VITALS: RESP 16
--- NOTE | 2019-05-08 09:11 | P.HPIM ---
History of Present Illness H&P Date: 05/07/19 Chief Complaint: Shortness of breath This is a history of physical 70-year-old white female essentially admitted with worsening shortness of breath. She just returned recently from [place] for vacation and states for the last 4-5 days has been having difficulty with breathing. Lower 70 edema is also noted. No previous history of chest pressure. No nausea, vomiting or diarrhea and no element of diaphoresis but significant dyspnea. O2 requirement upon interview today. Otherwise no voiding difficulties. She is nonsmoker. 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 History of Any Multi-Drug Resistant Organisms: None Reported Past Surgical History: Joint Replacement, Orthopedic Surgery, Tonsillectomy Additional Past Surgical History / Comment(s): Recent ureteral stent in [place], L hip ORIF/screws, R elbow ORIF/screw, total R knee arthroplasty, L knee arthroscopy, colonoscopies, R salvary gland biopsy, R salvary gland removal, small bowel resection/ lysis of adhesions/colostomy with reversal, bilateral cataract removals/lens implants. Past Anesthesia/Blood Transfusion Reactions: No Reported Reaction Additional Past Anesthesia/Blood Transfusion Reaction / Comment(s): NO HX BLOOD TRANSFUSION Smoking Status: Never smoker - Past Family History Mother Family Medical History: Coronary Artery Disease (CAD) Additional Family Medical History / Comment(s): HEART DISEASE Father Family Medical History: Coronary Artery Disease (CAD) Medications and Allergies Home Medications Medication Instructions Recorded Confirmed Type Losartan Potassium 100 mg PO QAM 05/15/18 05/07/19 History Bisoprolol-Hctz 5-6.25 mg [Ziac 1 tab PO DAILY 09/25/18 05/07/19 History 5-6.25 MG] Amoxic-Pot Clav 875-125Mg 1 tab PO Q12HR 05/07/19 05/07/19 History [Augmentin 875-125] Allergies Allergy/AdvReac Type Severity Reaction Status Date / Time ibuprofen Allergy Rash/Hives Verified 05/07/19 07:33 Physical Exam Vitals: Vital Signs Temp Pulse Pulse Resp BP BP Pulse Ox 05/08/19 08:55 98.1 F 84 16 123/85 93 L 05/08/19 08:52 20 05/08/19 03:59 98.5 F 77 20 115/79 98 05/08/19 03:58 90 20 05/08/19 00:00 98.2 F 90 20 131/87 95 05/07/19 20:00 98.4 F 90 20 136/91 93 L 05/07/19 16:00 98.1 F 90 18 129/84 93 L 05/07/19 14:00 98.1 F 84 18 119/79 93 L 05/07/19 13:00 17 125/86 93 L 05/07/19 12:00 20 135/89 94 L 05/07/19 11:00 146/106 05/07/19 10:00 81 20 125/94 95 Intake and Output 05/07/19 05/08/19 05/08/19 22:59 06:59 14:59 Intake Total 240 25.366 60.965 Output Total 250 Balance 240 -224.634 60.965 Intake: Intake, IV Titration 25.366 60.965 Amount Heparin Sod,Pork in 0.45% 25.366 60.965 NaCl 25,000 unit In 0.45 % NaCl 1 250ml.bag @ 12 UNITS/KG/HR 6.532 mls/hr IV .Q[facility]H [facility] Rx#: [id number] Oral 240 0 Output: Urine 250 Other: # Voids 2 Weight 54.431 kg 54.8 kg - Constitutional General appearance: no acute distress - EENT Eyes: EOMI - Neck Neck: no lymphadenopathy - Respiratory Respiratory: bilateral: CTA - Cardiovascular Rhythm: regular Heart sounds: normal: S1, S2 Abnormal Heart Sounds: no S3 Gallop - Gastrointestinal General gastrointestinal: soft, no tenderness - Psychiatric Psychiatric: A&O x's 3, no appropriate affect Results CBC & Chem 7: 05/08/19 07:32 05/07/19 05:31 Labs: Abnormal Lab Results - Last 24 Hours (Table) 05/07/19 05/07/19 05/07/19 Range/Units 11:37 17:13 22:48 APTT (22.0-30.0) sec Troponin I 0.115 H* 0.087 H* 0.064 H* (0.000-0.034) ng/mL LDL Cholesterol, Calc (0-99) mg/dL HDL Cholesterol (40-60) mg/dL 05/08/19 05/08/19 Range/Units 07:32 07:32 APTT 34.5 H (22.0-30.0) sec Troponin I (0.000-0.034) ng/mL LDL Cholesterol, Calc 127 H (0-99) mg/dL HDL Cholesterol 30 L (40-60) mg/dL Thrombosis Risk Factor Assmnt - Choose All That Apply Any of the Below Risk Factors Present?: Yes Each Factor Represents 1 point: Heart failure (<1month), Swollen legs (current) Other Risk Factors: Yes Each Risk Factor Represents 2 Points: Malignancy Each Risk Factor Represents 3 Points: Age 75 years or older Other congenital or acquired thrombophilia - If yes, enter type in comment: No Thrombosis Risk Factor Assessment Total Risk Factor Score: 7 Thrombosis Risk Factor Assessment Level: High Risk Assessment and Plan (1) S/P colectomy Current Visit: No Status: Acute Code(s): Z90.49 - ACQUIRED ABSENCE OF OTHER SPECIFIED PARTS OF DIGESTIVE TRACT SNOMED Code(s): 056466584 (2) Congestive heart failure Current Visit: Yes Status: Acute Code(s): I50.9 - HEART FAILURE, UNSPECIFIED SNOMED Code(s): 41302271 (3) Hypertension Current Visit: No Status: Acute Code(s): I10 - ESSENTIAL (PRIMARY) HYPERTENSION SNOMED Code(s): 93691828 Plan: Echocardiogram does show 40% ejection fraction. Continue diuresis. New pack check CBC and CMP in a.m. Appreciate cardiology consult. Given her troponin elevation, we'll started heparin drip. Time with Patient: Greater than 30
--- NOTE | 2019-05-08 09:12 | P.PN ---
Subjective Progress Note Date: 05/08/19 Principal diagnosis: CHF and elevated troponin This is a continue process note on a 70-year-old white female essentially admitted for new onset congestive heart failure. Appreciate cardiology consult. Echocardiogram is reviewed. Objective - Vital Signs Vital signs: Vital Signs Temp 98.1 F 05/08/19 08:55 Pulse 84 05/08/19 08:55 Resp 16 05/08/19 08:55 BP 123/85 05/08/19 08:55 Pulse Ox 93 L 05/08/19 08:55 Intake & Output 05/07/19 05/08/19 05/08/19 18:59 06:59 18:59 Intake Total 240 25.366 60.965 Output Total 250 Balance 240 -224.634 60.965 Weight 54.431 kg 54.8 kg Intake: Intake, IV Titration 25.366 60.965 Amount Heparin Sod,Pork in 0.45% 25.366 60.965 NaCl 25,000 unit In 0.45 % NaCl 1 250ml.bag @ 12 UNITS/KG/HR 6.532 mls/hr IV .Q24H [facility] Rx#: [id number] Oral 240 0 Output: Urine 250 Other: # Voids 2 - Constitutional General appearance: Present: thin - EENT Eyes: Absent: abnormal pupil - Neck Neck: Absent: lymphadenopathy - Respiratory Respiratory: bilateral: CTA - Cardiovascular Rhythm: regular Heart sounds: normal: S1, S2 Abnormal Heart Sounds: Absent: S3 Gallop - Gastrointestinal General gastrointestinal: Present: soft. Absent: tenderness - Neurologic Neurologic: Present: CNII-XII intact - Musculoskeletal Musculoskeletal: Present: generalized weakness - Labs CBC & Chem 7: 05/08/19 07:32 05/07/19 05:31 Labs: Abnormal Lab Results - Last 24 Hours (Table) 05/07/19 05/07/19 05/07/19 Range/Units 11:37 17:13 22:48 APTT (22.0-30.0) sec Troponin I 0.115 H* 0.087 H* 0.064 H* (0.000-0.034) ng/mL LDL Cholesterol, Calc (0-99) mg/dL HDL Cholesterol (40-60) mg/dL 05/08/19 05/08/19 Range/Units 07:32 07:32 APTT 34.5 H (22.0-30.0) sec Troponin I (0.000-0.034) ng/mL LDL Cholesterol, Calc 127 H (0-99) mg/dL HDL Cholesterol 30 L (40-60) mg/dL Assessment and Plan (1) S/P colectomy Current Visit: No Status: Acute Code(s): Z90.49 - ACQUIRED ABSENCE OF OTHER SPECIFIED PARTS OF DIGESTIVE TRACT SNOMED Code(s): 919326446 (2) Congestive heart failure Current Visit: Yes Status: Acute Code(s): I50.9 - HEART FAILURE, UNSPECIFIED SNOMED Code(s): 42459951 (3) Hypertension Current Visit: No Status: Acute Code(s): I10 - ESSENTIAL (PRIMARY) HYPERTENSION SNOMED Code(s): 97507880 Plan: We'll go ahead and continue to follow. Check CBC and CMP in a.m. Appreciate cardiology input.
[2019-05-08] MEDS: BISOPROLOL-HCTZ 5-6.25 MG 1 EACH TAB PO SCH (09:15)
[2019-05-08] MEDS ORDERED: NITROGLYCERIN SL TABS 0.4 MG TAB SUBLINGUAL PRN (09:23)
[2019-05-08] MEDS ORDERED: ALPRAZolam 0.25 MG TAB PO PRN (09:23)
[2019-05-08] MEDS ORDERED: SODIUM CHLORIDE 0.9% 1,000 ML in EMPTY BAG 1 BAG IV ONE (09:23)
[2019-05-08] MEDS ORDERED: ALPRAZolam 0.5 MG TAB PO PRN (09:23)
[2019-05-08] MEDS ORDERED: ATORVASTATIN 80 MG TAB PO STA (09:23)
[2019-05-08] MEDS ORDERED: ASPIRIN 325 MG TAB PO STA (09:23)
[2019-05-08] MEDS ORDERED: LIDOCAINE 1% INJ 10MG/ML (20 ML MDV) ONE (10:17)
[2019-05-08] MEDS ORDERED: fentaNYL (PF) 50 MCG/ML 2 ML AMP ONE ×2 (10:31→10:49)
--- NOTE | 2019-05-08 10:34 | CONS ---
CONSULTATION CHIEF COMPLAINT: Shortness of breath. This is a 78-year-old lady with history of hypertension who presented to [facility] complaining of shortness of breath. Patient has known hypertension and recently had urinary stone and had unsuccessful attempt at removal. She had a CT scan of the chest on this admission because of elevated D-dimer that did not reveal pulmonary embolism, but patient has interstitial edema and also has pleural effusions. An echocardiogram showed an ejection fraction of 40% to 45% with hypokinesis involving the apex and septum. The troponin is mildly elevated. Creatinine is normal. Raising the possibility of a Takotsubo syndrome non ST-segment elevation myocardial infarction. EKG shows sinus rhythm with evidence of recent anterior wall myocardial infarction. The clinical presentation is consistent with acute onset systolic heart failure secondary to ischemic cardiomyopathy. I am treating the patient with IV Lasix, continue the IV heparin and when she is able to lie flat she will need to undergo cardiac catheterization. Will probably do this later today. PAST MEDICAL HISTORY: Significant for hypertension. MEDICATIONS: Medications at home include losartan, Ziac, Augmentin. ALLERGIES: Allergic to ibuprofen. FAMILY HISTORY: Negative for premature coronary artery disease. SOCIAL HISTORY: Negative for smoking, EtOH abuse or drug abuse. REVIEW OF SYSTEMS: HEENT is unremarkable. CARDIAC: As described above. RESPIRATORY: As described above. GI: Negative. GENITOURINARY: Negative. ALLERGY/IMMUNOLOGY: Negative. SKIN: Negative. MUSCULOSKELETAL: Significant for arthritis. PSYCHOSOCIAL: Negative. ENDOCRINE: Negative. DERM: Negative. CONSTITUTIONAL: Negative. ONCOLOGICAL: Negative. Rest of the system review is not relevant. PHYSICAL EXAMINATION: On exam, comfortable at rest. Vital signs are stable. There is no jugular venous distention. Chest exam reveals diminished air entry at the bases. Heart exam reveals first and second heart sounds. Systolic murmur at the apex. Abdomen is soft. Examination of extremities did not reveal any edema. Peripheral pulses are felt. DIGITAL INTERN exam did not reveal focal deficits. EKG is abnormal as described above. Troponins are elevated. Hemoglobin is 12. Potassium is 3.5. Creatinine is 0.7. ASSESSMENT: 1. Acute onset systolic heart failure secondary to ischemic cardiomyopathy. 2. Non ST-segment elevation myocardial infarction. 3. Hypertension. PLAN: I am going to resume the beta blockers and CARMEN inhibitors. Continue the IV Lasix and heparin and consider cardiac catheterization on her. MMODL / ARTN: [id number] /
[2019-05-08] MEDS ORDERED: fentaNYL (PF) 50 MCG/ML 2 ML AMP IV ONE (10:48)
[2019-05-08] MEDS ORDERED: MIDAZOLAM PF (FBP) 2 MG/2 ML VIAL IV ONE (10:48)
[2019-05-08] MEDS ORDERED: LIDOCAINE 1% INJ 10MG/ML (20 ML MDV) SQ ONE (10:49)
[2019-05-08] MEDS ORDERED: IOPAMIDOL-370 125ML BTL INJ ONE (11:00)
[2019-05-08] MEDS ORDERED: IV FLUID CONTINUATION 800 ML IV ONE (11:01)
[2019-05-08] MEDS ORDERED: RX INFO: IV CONTRAST WAS GIVEN 1 EACH MISC MISCELLANE PRN (11:10)
--- NOTE | 2019-05-08 12:04 | CC ---
CARDIAC CATHETERIZATION REPORT INDICATION: Non ST-segment elevation [place] and new onset congestive heart failure. PROCEDURE NOTE: After obtaining informed consent, left heart catheterization and coronary angiogram were performed via the right femoral artery using standard Aileen catheters. The patient tolerated the procedure well without any obvious immediate complications. A femoral angiogram was performed and Angio-Seal was deployed for hemostasis. Patient received moderate conscious sedation. Total sedation time was 13 minutes. FINDINGS: 1. HEMODYNAMICS: Left ventricular end-diastolic pressure is 8 mm. There is no significant gradient across the aortic valve. 2. LEFT VENTRICULOGRAM: Left ventriculogram was not performed. 3. ANGIOGRAPHIC DATA: Left Main Coronary Artery: Left main coronary artery appears calcified but is free of significant stenosis. Divides into left anterior descending coronary artery and circumflex coronary artery. Circumflex coronary artery and its branches are free of significant stenosis. LAD gives off a large caliber diagonal branch which shows a 50% to 60% ostial stenosis. Circumflex coronary artery and its branches are free of significant disease. Right coronary artery is a large dominant vessel and is free of significant stenosis. CONCLUSIONS: 1. Right dominant circulation. 2. Moderate area of stenosis involving the ostial portion of the diagonal branch. PLAN: I believe patient's clinical presentation is consistent with a Takotsubo syndrome. We will continue with aggressive medical therapy at this time. The diagonal lesion I do not think explains the clinical presentation. The patient will have a repeat echo [address] to re-evaluate the LV function. MMJESSICAL / IJN: [id number] /
[2019-05-08] MEDS: SODIUM CHLORIDE 0.9% 1,000 ML IV SCH (12:30)
[2019-05-08] MEDS: HEPARIN SODIUM,PORCINE 5,000 UNIT/ML 1 ML VIAL SQ SCH (21:30)
[2019-05-09 03:20] VITALS: PULSE 92; TEMP 98.4
[2019-05-09] MEDS: SODIUM CHLORIDE 0.9% 1,000 ML IV SCH (03:55)
[2019-05-09] MEDS: FUROSEMIDE 10 MG/ML 4 ML VIAL IV SCH (05:47)
[2019-05-09 06:50] LABS: Basophils # (A) 0.1 k/uL (0-0.2); Basophils % (A) 1 %; Eosinophils # (A) 0.2 k/uL (0-0.7); Eosinophils % (A) 2 %; HCT 37.9 % (34.0-46.0); HGB 12.4 gm/dL (11.4-16.0); Lymphocytes # (A) 1.7 k/uL (1.0-4.8); Lymphocytes % (A) 21 %; MCH 29.9 pg (25.0-35.0); MCHC 32.6 g/dL (31.0-37.0); MCV 91.7 fL (80.0-100.0); Mean Platelet Volume 6.7; Monocytes # (A) 0.4 k/uL (0-1.0); Monocytes % (A) 5 %; Neutrophils # (A) 5.8 k/uL (1.3-7.7); Neutrophils % (A) 69 %; Platelet Count 479 k/uL (150-450); RBC 4.13 m/uL (3.80-5.40); WBC 8.3 k/uL (3.8-10.6)
[2019-05-09 06:52] LABS: Albumin 3.3 g/dL (3.5-5.0); Calcium 8.8 mg/dL (8.4-10.2); Potassium 3.6 mmol/L (3.5-5.1); Total Bilirubin 0.4 mg/dL (0.2-1.3); Total Protein 6.2 g/dL (6.3-8.2)
--- NOTE | 2019-05-09 08:20 | P.DS ---
Providers Date of admission: 05/07/19 07:36 Attending physician: Joao Greer Consults: 05/07/19 20:41 Consult Physician Routine Consulting Provider: Mireya Cheung Consult Reason/Comments: NOS CHF Do you want consulting provider notified?: Yes Primary care physician: Joao Greer - Discharge Diagnosis(es) (1) S/P colectomy Current Visit: No Status: Acute (2) Congestive heart failure Current Visit: Yes Status: Acute (3) Hypertension Current Visit: No Status: Acute Hospital Course: The patient is essentially admitted for new-onset congestive heart failure. The patient was stabilized with diuretic therapy and underwent cardiology consultation due to elevated troponin. The patient had cardiac catheterization which was stable and she was cleared from a cardiology perspective. The patient is to follow-up with me in 3-5 days. She is tolerating diet without significant pain and no shortness of breath on dyspnea on exertion on discharge. Patient Condition at Discharge: Stable Plan - Discharge Summary Discharge Rx Participant: No New Discharge Prescriptions: New Aspirin 81 mg PO DAILY chew Furosemide [Lasix] 40 mg PO DAILY #30 tab Nitroglycerin Sl Tabs [Nitrostat] 0.4 mg SUBLINGUAL Q5M PRN #50 tab PRN Reason: Chest Pain Continue Losartan Potassium 100 mg PO QAM Bisoprolol-Hctz 5-6.25 mg [Ziac 5-6.25 MG] 1 tab PO DAILY Amoxic-Pot Clav 875-125Mg [Augmentin 875-125] 1 tab PO Q12HR Discharge Medication List Losartan Potassium 100 mg PO QAM 05/15/18 [History] Bisoprolol-Hctz 5-6.25 mg [Ziac 5-6.25 MG] 1 tab PO DAILY 09/25/18 [History] Amoxic-Pot Clav 875-125Mg [Augmentin 875-125] 1 tab PO Q12HR 05/07/19 [History] Aspirin 81 mg PO DAILY chew 05/09/19 [Rx] Furosemide [Lasix] 40 mg PO DAILY #30 tab 05/09/19 [Rx] Nitroglycerin Sl Tabs [Nitrostat] 0.4 mg SUBLINGUAL Q5M PRN #50 tab 05/09/19 [Rx] Follow up Appointment(s)/Referral(s): Joao Greer MD [Primary Care Provider] - 3 Days Discharge Disposition: HOME SELF-CARE
[2019-05-09] MEDS: HEPARIN SODIUM,PORCINE 5,000 UNIT/ML 1 ML VIAL SQ SCH (08:30)
[2019-05-09] MEDS: BISOPROLOL-HCTZ 5-6.25 MG 1 EACH TAB PO SCH (08:30)
[2019-05-09] MEDS: ASPIRIN 81 MG PO SCH (08:30)
[2019-05-09] MEDS: LOSARTAN 50 MG TAB PO SCH (08:30)
[2019-05-09 08:35] VITALS: BP 101/62
[2019-05-09] MEDS ORDERED: FUROSEMIDE 40 MG TAB PO SCH (09:00)
--- NOTE | 2019-05-09 09:18 | PN ---
PROGRESS NOTE Chyna is a 78-year-old lady who is admitted to hospital with new onset congestive heart failure and non ST-segment elevation [place]. I performed cardiac catheterization on her that showed normal coronary arteries. She probably has the takotsubo syndrome. This morning she is doing good and is free of symptoms and on optimal medical therapy. I reviewed her medications and they include aspirin, Lasix which I am going to change to p.o., Ziac, Cozaar. PHYSICAL EXAM: Comfortable at rest. Vital signs are stable. Chest exam reveals good air entry bilaterally. Heart exam reveals first and second heart sounds. No gallop. Has a systolic murmur at the left lower sternal border. Abdomen is soft. Exam of extremities did not reveal any edema. Peripheral pulses are felt. LABS: Show that the hemoglobin is 12.4, platelet count is 470. Potassium is 3.6, creatinine is 0.7. 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 She will continue with current medications. MMODL / IJN: [id number] /
--- NOTE | 2019-05-12 05:38 | CDI ---
Documentation Clarification Form Date: 05/12/19 From: Wolfgangmaury Richdy Phone: call to [phone] Admit Date: 05/07/2019 7:36:00 AM Patient Name: Chyna Forte Visit Number: [id number] Discharge Date: 05/09/2019 11:14:00 AM ATTENTION: The Clinical Documentation Specialists (CDI) and [facility] Coding Staff appreciate your assistance in clarifying documentation. Please respond to the clarification below the line at the bottom and electronically sign. The CDI & [facility] Coding staff will review the response and follow-up if needed. Please note: Queries are made part of the Legal Health Record. If you have any questions, please contact the author of this message via ITS. Dr. Joao Greer, Myocardial infarction is documented in the 05/08 consult note and 05/[address] Pari Salas. Patient History/Risk Factors: cardiomyopathy, CHF Clinical Indicators: Troponin: 0.042 EKG Results:sinus rhythm with evidence of recent anterior wall myocardial infarction. Treatment: IV Heparin. After CATH Report shows patient having Takotsubo syndrome. In order to capture the severity of condition and necessary documentation specificity, please clarify: Type of Infarction: NSTEMI Unable to determine Other Condition, please specify Site of myocardial injury, if known: Anterior wall Inferior wall Lateral wall Posterior wall Septal wall Other, please specify Unable to determine NSTEMI as documented by cardiology MTDD
== END 2019-05-09 11:14 | disposition home or self-care (01) | DRG 280 ==
LOC: EC 05:16 → 3SCARD 07:36
PROVIDERS: ADMIT Family Medicine; ATTEND Family Medicine
PROC: B2111ZZ Fluoroscopy of Multiple Coronary Arteries using Low Osmolar Contrast (ICD-10-PCS; principal; 2019-05-08 07:30)
PROC: B2161ZZ Fluoroscopy of Right and Left Heart using Low Osmolar Contrast (ICD-10-PCS; principal; 2019-05-08 07:30)
PROC: 4A023N7 Measurement of Cardiac Sampling and Pressure, Left Heart, Percutaneous Approach (ICD-10-PCS; principal; 2019-05-08 07:30)
DX: I11.0 Hypertensive heart disease with heart failure (principal); I50.21 Acute systolic (congestive) heart failure; I21.4 Non-ST elevation (NSTEMI) myocardial infarction; I51.81 Takotsubo syndrome; I25.5 Ischemic cardiomyopathy; Z96.1 Presence of intraocular lens; Z96.651 Presence of right artificial knee joint; Z82.49 Family history of ischemic heart disease and other diseases of the circulatory system; Z85.038 Personal history of other malignant neoplasm of large intestine; Z85.818 Personal history of malignant neoplasm of other sites of lip, oral cavity, and pharynx; Z90.49 Acquired absence of other specified parts of digestive tract; Z87.442 Personal history of urinary calculi; Z88.6 Allergy status to analgesic agent
CPT/HCPCS: 36415; 71046; 71275; 80053; 80061; 82553; 83880; 84484; 85025; 85379; 85610; 85730; 93005; 93306; 93458; 96374; 99285

== ENCOUNTER → 2019-05-30 | Outpatient (CLI) | payer MEDICARE ==
--- NOTE | 2019-05-30 15:03 | XR ---
EXAMINATION TYPE: XR KUB DATE OF EXAM: 05/30/2019 2:46 PM CLINICAL HISTORY: N 20.1 TECHNIQUE: Single supine KUB image of the abdomen is obtained. COMPARISON: 12/20/2018 FINDINGS: There is a left ureteral stent with its proximal portion overlying the expected region of t he kidney and distal portion overlying the expected region of the urinary bladder. Colonic fecal marquise is is seen in the right hemicolon and rectum. No calcifications are seen along the courses of the ure ters. Diffuse osseous demineralization is seen. Postsurgical changes of the left hip. Compression def ormity of L2 is age indeterminant. The known right-sided nonobstructing renal calculi are not visuali zed due to overlying bowel. However there are punctate left renal calculi, at least 3 in number. IMPRESSION: 1. Left ureteral stent is seen overlying expected area of the kidney and urinary bladder. 2. Colonic fecal stasis in the right hemicolon and rectum are seen with obscuration of the known martin l calculi on the right. Punctate left renal calculi are present (at least 3 in number). 3. Age-indeterminate compression deformity of L2. However deformities of L4 and L5 were seen on the C T of 3 8. Correlate with point tenderness of L2.
== END | disposition home or self-care (01) ==
LOC: RADXRMAIN 14:34
PROVIDERS: ATTEND Urology
DX: N20.0 Calculus of kidney (principal); Z46.6 Encounter for fitting and adjustment of urinary device
CPT/HCPCS: 74018

== ENCOUNTER → 2019-06-10 | Outpatient (CLI) | payer MEDICARE ==
--- NOTE | 2019-06-10 13:35 | CT ---
EXAMINATION TYPE: CT abdomen pelvis wo con DATE OF EXAM: 06/10/2019 HISTORY: Lt flank pain, renal stone CT DLP: 221.5 mGycm. Automated Exposure Control for Dose Reduction was Utilized. TECHNIQUE: CT scan of the abdomen and pelvis is performed without oral or IV contrast. COMPARISON: CT abdomen and pelvis May 15, 2018 FINDINGS: Within the limitations of a non-contrast study, the following observations are made. LUNG BASES: Patchy left basilar linear scarring and/or atelectasis. LIVER/GB: No significant abnormality is appreciated. PANCREAS: No significant abnormality is seen. SPLEEN: No significant abnormality is seen. ADRENALS: No significant abnormality is seen. KIDNEYS: New double-J left ureter stent. No hydronephrosis or left-sided renal cortical calculi. Area s of cortical thinning throughout left kidney redemonstrated. Simple appearing 2 cm cyst laterally co valentino image 39 with lower pole level again seen. Interval passage of 13 mm left renal calculus lower pole level to mid ureter level seen on image 38 and axial image 69. There is stable 3 to 4 mm calculus lower pole of right kidney coronal image 46 and axial images 53. T here is additional punctate 1 mm calculus midpole level coronal image 40. No hydronephrosis or obstru cting ureteral calculi in the right kidney. No intraluminal calculus in poorly distended bladder. BOWEL: Surgical sutures all loops left midabdomen are present. Prominence of fecal material throughou t the colon. No suspicious small or large bowel dilatation. Patient has little intra-abdominal fat al otoniel with lack of enteric contrast makes evaluation of bowel suboptimal. Small bowel feces sign termin al ileum noted. Findings consistent with delayed passage of ingested material to colonic level. New s utures at level of sigmoid colon in the pelvis redemonstrated. GENITAL ORGANS: Uterus is retroverted in shape projecting to the right of midline. LYMPH NODES: No greater than 1cm abdominal or pelvic lymph nodes are appreciated. OSSEOUS STRUCTURES: Demineralization is redemonstrated. Lilu-ur-rfsnbizx compression fracture T12 lev el again seen. Mild height loss or compression fracture L2 level noted. Mild/moderate compression fra cture L5 level redemonstrated. Facet arthropathy lower lumbar spine. OTHER: No significant additional abnormality is seen. IMPRESSION: New double-J left ureter stent. Interval passage of 13 mm lower pole left renal calculus now to mid ureter level coronal image 38.
== END | disposition home or self-care (01) ==
LOC: RADCTMAIN 13:04
PROVIDERS: ATTEND Urology
DX: N20.0 Calculus of kidney (principal)
CPT/HCPCS: 74176

== ENCOUNTER → 2023-06-06 | Outpatient (CLI) | payer MEDICARE ==
--- NOTE | 2023-06-06 23:14 | NM ---
EXAMINATION TYPE: NM bone scan whole body DATE OF EXAM: 06/06/2023 COMPARISON: NONE HISTORY: Pain in thoracic spine Delayed whole-body scanning was performed following the injection of 22.7 mCi Tc 99m MDP. Images wer e acquired 3 hours post injection. FINDINGS: Abnormal uptake is within the mid thoracic spine in the region of T8.. Acute compression at this leve l is likely present. Abnormal uptake is at the inferior right scapular region. Plain film correlation is recommended. Frac ture and metastasis should be considered. There is some mild uptake within the cortical regions of the proximal diaphyseal left femur. Plain fi lm correlation recommended. There is some uptake in the regions of the left and right L5 pedicles. This may be degenerative in na ture. Metastasis cannot be excluded. IMPRESSION: 1. Uptake within the region of T8 can correlate with a acute compression deformity. 2. Abnormal uptake in the left scapula. Plain film correlation recommended. Correlate for fracture or metastasis. 3. Uptake within the cortex of the proximal left femur. Plain film Correlation is recommended.
== END | disposition home or self-care (01) ==
LOC: RADNMMAIN 10:39
PROVIDERS: ATTEND Physical Medicine & Rehabilitation
DX: S22.060A Wedge compression fracture of T7-T8 vertebra, initial encounter for closed fracture (principal); S32.010A Wedge compression fracture of first lumbar vertebra, initial encounter for closed fracture; M41.24 Other idiopathic scoliosis, thoracic region; M47.817 Spondylosis without myelopathy or radiculopathy, lumbosacral region; X58.XXXA Exposure to other specified factors, initial encounter
CPT/HCPCS: 78306; A9503